=== PATIENT | male | born 1945 | race Caucasian/White ===

== ENCOUNTER 2023-07-18 13:59 | Outpatient (RCR) | payer MEDICARE, OTHER, SELFPAY | END 2023-07-18 23:59 | disposition home or self-care (01) | LOC: RPT 13:59 | PROVIDERS: ATTENDING PHYSICIAN Family Medicine | DX: R26.9 Unspecified abnormalities of gait and mobility (principal); Z73.6 Limitation of activities due to disability; R26.2 Difficulty in walking, not elsewhere classified | CPT/HCPCS: 97110; 97112; 97116; 97530 ==

== ENCOUNTER 2023-08-21 10:50 | Outpatient (RCR) | payer MEDICARE, OTHER, SELFPAY | END 2023-08-21 23:59 | disposition home or self-care (01) | LOC: RPT 10:50 | PROVIDERS: ATTENDING PHYSICIAN Family Medicine | DX: I89.0 Lymphedema, not elsewhere classified (principal); R26.9 Unspecified abnormalities of gait and mobility; Z73.6 Limitation of activities due to disability; R26.2 Difficulty in walking, not elsewhere classified | CPT/HCPCS: 97110; 97112; 97116; 97530 ==

== ENCOUNTER 2023-08-27 13:49 | Outpatient (RCR) | payer MEDICARE, OTHER, SELFPAY | END 2023-09-16 07:49 | disposition home health service (06) | LOC: RPT 13:49 | PROVIDERS: ATTENDING PHYSICIAN Family Medicine | DX: I89.0 Lymphedema, not elsewhere classified (principal); R26.9 Unspecified abnormalities of gait and mobility; R60.9 Edema, unspecified; Z73.6 Limitation of activities due to disability; R26.2 Difficulty in walking, not elsewhere classified | CPT/HCPCS: 97110; 97112; 97116; 97530 ==

== ENCOUNTER 2023-08-29 14:20 | Inpatient (IN) | payer MEDICARE, OTHER, SELFPAY ==
[2023-08-29] VITALS (19 sets, daily range): BP systolic 111–166; BP diastolic 50–87; PULSE 63–73; O2SAT 96; BMI 30.9
[2023-08-29 08:25] LABS: Urine Albumin Negative (Neg - Trace); Urine Bilirubin Negative (Negative); Urine Character Clear (Clear); Urine Color Yellow; Urine Glucose Negative (Negative); Urine Ketone Negative (Negative); Urine Leukocyte Negative (Negative); Urine Nitrite Negative (Negative); Urine Occult Blood Negative (Negative); Urine Specific Gravity 1.005 (<1.030); Urine Urobilinogen Negative (Neg - 1+)
[2023-08-29 09:13] LABS: Hematocrit 38.4 % (39.0-52.0); Hemoglobin 13.1 g/dL (13.0-18.0); Mean Corp Hgb Conc. 34.1 g/dL (33.0-37.0); Mean Corpuscular Hgb 31.2 pg (27.0-31.0); Mean Corpuscular Volume 91.4 fL (80.0-94.0); Mean Platelet Volume 9.7 fL (7.4-10.4); Platelet Count 198 10^3/uL (130-400); Red Cell Dist. Width 13.2 % (11.5-14.5); White Blood Cell Count 8.4 10^3/uL (4.8-10.8)
--- NOTE | 2023-08-29 09:14 | ED.GENMED ---
History of Present Illness
General
Chief Complaint: Chest Pain
Source: patient
Exam Limitations: none
Time Seen by Provider: 08/29/23 08:28
Nursing documentation reviewed up to this point in time: agreed with
Travel History
Have you had any contact with someone who has COVID-19?: No
Do you have any symptoms of coronavirus? Fever > 100 degrees, chills, cough, shortness of breath, sore throat, loss of taste or smell, muscle aches, or headache?: No
History of Present Illness
History of Present Illness:
Patient presents to ED secondary to sudden onset of left-sided chest pain, shortly after having breakfast this morning around 7 AM. Chest pain described as sharp, nonradiating, without any alleviating or exacerbating factors. However, chest pain
was associated with lightheadedness, which became far worse when he tried to stand up. Patient sat back down on the chair to prevent falling, which also alleviated lightheaded sensation. Sensation of dizziness recurred multiple times when he tried
to stand up. Patient does state that he has had lightheadedness in the past, but never this severe. Denies recent illness. Denies recent change medications or diet. Denies shortness of breath. Denies nausea vomiting. Denies diaphoresis.
Denies history of coronary artery disease.
Past History
Past History
ED Past Medical History: Psychiatric (ANXIETY), Other (GI bleed and Uropsepsis late 2015 at [facility]) and Other (BPH, hypertension, hyperlipidemia, GERD, peptic ulcer disease)
Social History
Tobacco: Non-smoker
Alcohol: Occasional
Personal:
Living: with family
Employment: Retired
Family History
Family History: Other (Alzheimer's)
Review of Systems
Review of Systems
Allergies reviewed?: Yes
All Other Systems: ROS reviewed and negative except as documented in HPI and ROS
Constitutional: Reports no symptoms
EENT: Reports no symptoms
Respiratory: Reports no symptoms; Denies trouble breathing
Cardiac: Reports chest pain; Denies diaphoresis, palpitations or syncope
ABD/GI: Reports no symptoms
: Reports no symptoms
Musculoskeletal: Reports no symptoms
Skin: Reports no symptoms
Neurological: Reports dizzy; Denies headache, weakness or numbness
Phy Exam
Physical Exam
Physical Exam:
Physical Exam
General: no apparent distress, not acutely ill. afebrile
Head: nc/at. eomi
Neck: supple. no meningeal signs.
Heart: s1/s2 regular rate and rhythm, no murmur. equal radial pulses.
Lungs: no acute respiratory distress. clear bilaterally
Abdomen: normal bowel sounds. not tender.
Neuro: alert and oriented. no focal neurological deficits
Skin: no rash
Psychiatric: well kept. interactive and cooperative
Extremities: no edema. no calf tenderness.
Scores
Heart Score for Chest Pain Patients
STEMI patient?: Not applicable
Course
Orders/Labs/Results
Orders:
Orders
08/29/23 07:57
EKG [Electrocardiogram (*1)] Urgent
Reason for Study: Chest Pain
EKG- Treatment ONCE
08/29/23 08:18
Urinalysis Reflex To Culture Urgent
Date Specimen was Collected: 08/29/23
Time Specimen was Collected: 08:13
08/29/23 08:41
Orthostatic VS- Treatment ONCE
CR Chest - 2 Views Urgent
Comment:
Reason For Exam: chest pain
08/29/23 09:01
Basic Metabolic Panel Urgent
Cardiovascular Evaluation Urgent
Complete Blood Count/No Diff Urgent
Ferritin Urgent
Comment: ADD ON
Folate Urgent
Comment: ADD ON
Glycohemoglobin (HgbA1c) Urgent
Lipase Urgent
Magnesium Urgent
TSH Reflex To Free T4 Urgent
Comment: ADD ON
Troponin I Urgent
Vitamin B12 Urgent
Comment: ADD ON
08/29/23 09:44
EKG- Treatment ONCE
08/29/23 10:58
Troponin I Urgent
08/29/23 11:00
Electrocardiogram (*1) Urgent
Reason for Study: Chest Pain
08/29/23 11:53
Physical Therapy Consult [Pt Eval And Treat] Urgent
Activity Level: As Tolerated
08/29/23 11:54
0.9% Sodium Chloride 250 ml [Nss] 250 ml IV BOLUS
08/29/23 14:01
Admit/Transfer Patient As Directed
Co-Sign Provider:
Level of Care: Inpatient admission
Assign to:: Telemetry
Physician / Group: Rebecca
Diagnosis: Ataxia
Reason for Telemetry: CVA/TIA
Date to Stop Telemetry: 09/01/23
Time to Stop Telemetry: 11:00
Reason for Hospitalization: Neurology consult, MRI, PT
Expected length of stay greater than two midnights?: Yes
ELOS- Estimated Length of Stay in days: 3
I certify the patient meets the requirements for IP care: Yes
08/29/23 14:03
Code Status As Directed
Resuscitation Status: Do not resuscitate
Reached after discussion with pt or family/Healthcare POA: Yes
DNR Bracelet Application ONCE
08/29/23 14:16
Orthostatic Vital Signs As Directed
Orthostatic VS Frequency: BID
Comment: please wait 3 minutes after each position change before checking bp
08/29/23 Dinner
Regular
At Your Request: Full Participation
09/01/23 11:00
DC Protocol for Telemetry ONCE
Abnormal Lab Results
08/29/23
09:01
RBC 4.20 L 10^6/uL
(4.70-6.10)
Hct 38.4 L %
(39.0-52.0)
MCH 31.2 H pg
(27.0-31.0)
BUN 23 H mg/dl
(9-20)
Magnesium 2.4 H mg/dl
(1.6-2.3)
08/29/23 09:01
08/29/23 09:01
Vital Signs
Initial and Last Documented VS:
Initial Vital Signs
Temp Pulse Resp BP Pulse Ox
98.9 F 78 20 148/72 98
08/29/23 08:08 08/29/23 08:08 08/29/23 08:08 08/29/23 08:08 08/29/23 08:08
Last Documented Vital Signs
Temp Pulse Resp BP Pulse Ox
98.9 F 64 14 129/73 98
08/29/23 08:08 08/29/23 16:45 08/29/23 16:45 08/29/23 16:00 08/29/23 08:08
MDM/Problems Addressed
MDM/Problems Addressed:
Pt remains chest pain during extended course observation, including repeat EKG and troponin. However, patient is significantly unstable when attempting to stand up, confirmed by nursing staff as well as physical therapy, raising possibility of
potential cerebellar involvement. As such, patient will be admitted for further evaluation and treatment.
*EKG
Interpreted by ED Provider?: Yes
EKG Intrepretation Date: 08/29/23
Heart Rate: 66
Rate: normal
Rhythm: sinus
[place]: normal axis
Interval: normal interval
QRS Pattern: normal QRS
*Critical Care Note
Total Time (30-74mins, 75-104mins- exclusive of procedures): Not Applicable
ED Attending Note
-
Portions of this chart may have been created with voice recognition software.� Occasional wrong word or��sound alike� substitutions may have occurred due to the inherent limitations of voice recognition software.
Discharge Plan
Departure
Patient Disposition: Admit
Date of Disposition: 08/29/23
Time of Disposition: 13:08
Admit to: Telemetry
Presentation/result/management discussed w/ accepting MD/DO: Hospitalist
Discharge Problem:
Dizziness
Interventions
Interventions:
*Risk Screen - Suicide Last Done: 08/29/23 09:31
*Neglect/Abuse Screening Last Done: 08/29/23 09:31
ED- Fall Risk Assessment Last Done: 08/29/23 09:21
*ED COVID-19 Vaccine History Last Done: 08/29/23 08:10
ED- Cardiac Assessment Last Done: 08/29/23 09:21
[2023-08-29 09:26] LABS: Blood Urea Nitrogen 23 mg/dl (9-20); Calcium 8.6 mg/dl (8.4-10.2); Carbon Dioxide 26 mmol/L (22-30); Chloride 106 mmol/L (98-107); Glucose 83 mg/dl (70-99); Lipase 43 U/L (23-300); Magnesium 2.4 mg/dl (1.6-2.3); Potassium 4.1 mmol/L (3.5-5.1); Sodium 136 mmol/L (135-145); eGFR > 60.00
[2023-08-29 09:38] LABS: Troponin I < 0.012 ng/ml
[2023-08-29 11:30] LABS: Troponin I < 0.012 ng/ml
[2023-08-29] MEDS: NSS 250 IV (12:00)
--- NOTE | 2023-08-29 14:07 | HPS.HSE ---
Family Physician
-
Family Physician: Dory Starr
Chief Complaint
-
Chest pain, unsteadiness with ambulation
History of Present Illness
77-year-old male here with complaints of left-sided brief episode of chest pain today at rest but subsequently became concerned when he started developing lightheadedness and unsteadiness with ambulation. Currently denies any further chest pain.
At the time, chest pain lasted only a few seconds and resolved. Denies shortness of breath.
Goes to physical therapy a few days a week and last session was 2 days ago. Apparently was doing well with ambulation with cane but today is quite unsteady when he stands and tries to walk. Unsteadiness started earlier this morning. Seen by
physical therapy in the emergency room and reportedly they were unable to get him to ambulate. Only able to stand and he felt too unsteady to take further steps.
Denies headache, nausea or vomiting. Denies vertigo.
Daughter at the bedside, she states no recent medication changes or dose changes.
Medical History
Past Medical History
Past Medical History: Reports Other
Additional Past Medical History:
Mild cognitive impairment
Parkinson's disease suspect
GERD
Anxiety disorder
Peptic ulcer disease
Essential hypertension
hyperlipidemia
BPH
Past Surgical History: Reports None
Social History
Tobacco: Non-smoker
Alcohol: None
Drug: None
Personal: Single
Living: Alone
Family History
Family History: Not pertinent
Allergies / Home Medications
Allergies reflects when Allergies were last updated in [facility].
Home Medications with original date entered in [facility]
Allergy/Medication List:
Allergies
Allergy/AdvReac Type Severity Reaction Status Date / Time
No Known Allergies Allergy Verified 08/29/23 08:12
Home Medications
acetaminophen 500 mg tablet (Tylenol Extra Strength) 500 mg PO DAILYPRN PRN mild pain 08/29/23
cholecalciferol (vitamin D3) 125 mcg (5,000 unit) tablet 125 mcg PO QPM 08/29/23
famotidine 20 mg tablet (Pepcid AC Maximum Strength) 20 mg PO DAILY PRN heartburn 08/29/23
finasteride 5 mg tablet 5 mg PO QPM 08/29/23
fluoxetine 40 mg capsule 40 mg PO QPM 08/29/23
furosemide 20 mg tablet 40 mg PO BID 08/29/23
ymyaqktkqqvy-xjlpmpkb-gaxzib tablet 1 tab PO DAILY 08/29/23
olanzapine 2.5 mg tablet 2.5 mg PO HS 08/29/23
omeprazole 40 mg capsule,delayed release 40 mg PO DAILY 08/29/23
propranolol 10 mg tablet 10 mg PO QPM 08/29/23
rosuvastatin 20 mg tablet 20 mg PO QPM 08/29/23
Review of Systems
-
History Source: Patient
A 12 point ROS was completed and negative except as noted: Yes
Physical Exam
Vital Signs
Vital Signs
Temp Pulse Resp BP Pulse Ox
98.9 F 69 17 150/82 98
08/29/23 08:08 08/29/23 13:30 08/29/23 13:30 08/29/23 13:00 08/29/23 08:08
Physical Exam
General: Well Developed, Well Nourished, No Apparent Distress and Comfortable
HEENT: NormoCephalic, Anicteric and Moist mucous membranes
Respiratory: Clear
Cardiac: S1/S2 and Regular Rhythm
GI: Soft, Non Tender and Non Distended
Genito-urinary: Deferred by me
Musculoskeletal: No Clubbing, No Cyanosis and No Edema
Skin: Warm and Dry
Neuro: AO x 3, Nonfocal/grossly intact and Other (Mild left-sided dysmetria on wgkwcx-mg-txhe testing. Trouble following verbal commands for testing for dysdiadochokinesia.)
Hematologic/Lymphatic: No Lymphadenopathy
Psych: Calm
Laboratory Results
-
08/29/23 09:01
08/29/23 09:01
Laboratory Results
Troponin I < 0.012 ng/ml 08/29/23 10:58
Lipase 43 U/L (23-300) 08/29/23 09:01
Impression/Plan
-
New onset gait ataxia -differential diagnosis includes cerebellar stroke versus movement disorder versus other etiology. Will admit to telemetry. Consult neurology. May need brain MRI, will defer to neurology. Continue PT/OT. Start low-dose
aspirin.
Chronic ambulatory dysfunction -uses a walking stick at baseline. No longer drives.
Essential hypertension -stable.
Hyperlipidemia -continue rosuvastatin.
GERD/peptic ulcer disease
Mild cognitive impairment -followed by neurology, Dr. Harp.
Chronic peripheral neuropathy -unclear etiology.
BPH -continue finasteride.
Anxiety disorder -continue home meds.
DNR -confirmed with patient and daughter.
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
[2023-08-29 16:52] LABS: HDL Cholesterol 47 mg/dl; LDL Cholesterol, Calculated 44 mg/dl; Total Cholesterol 120 mg/dl (50-199); Triglyceride 147 mg/dl (10-149); Very Low Density Lipoprotein 29 mg/dl (0-30)
[2023-08-29 17:32] LABS: TSH Reflex To Free T4 0.96 uIU/ml (0.47-4.68)
[2023-08-29 17:36] LABS: Ferritin 24.7 ng/ml (17.9-464.0)
[2023-08-29 18:08] LABS: Folate > 20.0 ng/ml (2.76-20)
[2023-08-29] MEDS: INDERAL 10 MG PO (19:44)
[2023-08-29] MEDS: LASIX 40 MG PO (19:44)
[2023-08-29] MEDS: PROSCAR 5 MG PO (19:44)
[2023-08-29] MEDS: PROZAC 40 MG PO (19:45)
[2023-08-29] MEDS: CRESTOR 20 MG PO (19:45)
--- NOTE | 2023-08-29 21:15 | PTCARENOTE ---
Pt arrived to room 415-02. Pt transferred from stretcher to bed. Pt AAOx3, VSS. Pt accompanied by daughter at bedside. Pt in no signs of acute distress. Pt oriented to room, call mayorga placed within reach.
[2023-08-29] MEDS: LOVENOX 40 MG SC (22:36)
[2023-08-29] MEDS: LOW STRENGTH ASPIRIN 81 MG PO (22:37)
[2023-08-29] MEDS: ZYPREXA 2.5 MG PO (22:37)
[2023-08-29] MEDS: VITAMIN D3 (cholecalciferol) 125 MCG PO (22:37)
[2023-08-30 01:15] LABS: Vitamin B12 410 pg/ml (239-931)
[2023-08-30 02:28] VITALS: BP 109/60
[2023-08-30 07:00] VITALS: BP 128/68
[2023-08-30] MEDS: THERAGRAN 1 TABLET PO (08:28)
[2023-08-30] MEDS: PROTONIX 40 MG PO (08:28)
[2023-08-30] MEDS: LOW STRENGTH ASPIRIN 81 MG PO (08:28)
[2023-08-30] MEDS: LASIX 40 MG PO ×2 (08:28→21:36)
[2023-08-30 08:45] LABS: Glycohemoglobin (HgbA1c) 6.3 % (4.0-5.6)
--- NOTE | 2023-08-30 09:06 | W.PN.HOSP.TC ---
Addendum entered and electronically signed by Aldair Fernandez DO 08/30/23 12:28:
Brain MRI normal.
Medically stable for discharge to SNF.
Case management aware.
Daughter updated on the phone.
Original Note:
Today's Communication/Plan
-
PT/OT
Brain MRI
Assessment / Plan
Assessment / Plan
Gen-AAOx3, NAD
HEENT-NC, AT, anicteric, clear oral mm
Neck-supple
CV-reg, no M, +S1/S2
Lungs-clear B/L
Abd-soft, NT, ND
Ext-no edema
Musculoskeletal-no cyanosis, clubbing
Skin-warm and dry
Neuro-grossly non-focal
Psych-calm, cooperative
New onset gait ataxia -differential diagnosis includes cerebellar stroke versus movement disorder versus other etiology.� Appreciate neurology input. Await brain MRI. Continue PT/OT.
Chronic ambulatory dysfunction -uses a walking stick at baseline.� No longer drives.
Essential hypertension -stable.
Hyperlipidemia -continue rosuvastatin.
GERD/peptic ulcer disease
Mild cognitive impairment -followed by neurology, Dr. Harp. Differential diagnosis includes Lewy body dementia.
Chronic peripheral neuropathy -unclear etiology.
BPH -continue finasteride.
Anxiety disorder -continue home meds.
DNR -confirmed with patient and daughter.
Dispo -anticipate discharge to SNF when medically stable.
Anticipated Discharge: Within 24 hours
Subjective/Interval History
-
Date of Service: August 30, 2023
Patient seen and examined. Eating breakfast. No complaints.
Objective Data
-
Vital Signs:
Vital Signs
Temp Pulse Resp BP Pulse Ox
98.0 F 57 18 128/68 96
08/30/23 07:00 08/30/23 07:00 08/30/23 07:00 08/30/23 07:00 08/30/23 07:00
I&O
08/29/23 08/30/23 08/31/23
06:59 06:59 06:59
Output Total 550 / 550
Balance -550 / -550
Review of Systems
-
History Source: Patient
All other systems: Reviewed and negative
--- NOTE | 2023-08-30 14:20 | W.PN.NEURO.1 ---
Today's Communication / Plan
-
-Can stop aspirin given no findings of chronic or acute stroke on the brain MRI and I do not feel this episode was a TIA
-Recheck orthostatic vital signs
-Okay to continue low-dose olanzapine which has been helpful for visual hallucinations
-Consideration for outpatient DaTscan and continued neurology follow-up given concern for a parkinsonian disorder
-Blood pressure checks at home I think would be helpful
-No further recommendations for inpatient neurologic workup
Will follow as needed call with questions and concerns
Neuro Assessment/Plan
Assessment
77-year-old male with a past medical history of hallucinations for which she is on olanzapine, peripheral neuropathy, BPH, hyperlipidemia, hyper presented to hospital because of sudden onset dizziness and balance problems.
MRI brain is negative for acute stroke and no chronic strokes seen
Neurologic examination does show a chronic peripheral neuropathy
Patient additionally has had some concerning findings of possible dream enactment behavior suggestive of REM behavior disorder (this is often a precursor to parkinsonian neurodegenerative disorders), anosmia, visual hallucinations, mild cognitive
issues suggestive of an atypical parkinsonian disorder such as Lewy body dementia, other possibilities would be cortical basal degeneration, doubtful of an idiopathic Parkinson's disease as does not have the typical signs of this.
He had had a couple days of diarrhea leading up to his presentation
Presentation is related to chronic neuropathy that can produce ataxia and imbalance and the diarrhea may have predisposed to this.
Additionally there is suspicion for a chronic neurodegenerative disease process that could affect balance as well.
Subjective/Objective
Subjective Data
Date of Service: August 30, 2023
No acute events, patient feeling pretty well
Objective Data
Vital Signs
Temp Pulse Resp BP Pulse Ox
98.0 F 57 18 128/68 96
08/30/23 07:00 08/30/23 07:00 08/30/23 07:00 08/30/23 07:00 08/30/23 07:00
Lab Results
08/29/23 09:01
08/29/23 09:01
Sodium 136 mmol/L (135-145) 08/29/23 09:
Potassium 4.1 mmol/L (3.5-5.1) 08/29/23 09:
BUN 23 mg/dl (9-20) H 08/29/23 09:
Glucose 83 mg/dl (70-99) 08/29/23 09:
Calcium 8.6 mg/dl (8.4-10.2) 08/29/23 09:
LDL Cholesterol, Calc 44 mg/dl 08/29/23 09:
Vitamin B12 410 pg/ml (239-931) 08/29/23 09:
Patient Allergies
No Known Allergies Allergy (Verified 08/29/23 08:12)
Review of Systems
-
History Source: Patient
All other systems: Reviewed and negative
Constitutional: No Symptoms
EENT: No Symptoms Reported
Respiratory: No Symptoms
Cardiac: No Symptoms
Abdomen/GI: No Symptoms
Genitourinary: No Symptoms
Musculoskeletal: No Symptoms
Skin: No Symptoms
Neuro: See existing Neuro Note
Endocrine: No Symptoms
Hematologic / Lymphatic: No Symptoms
Allergy / Immunology: No Symptoms
Physical Exam
-
General: Comfortable
Eyes: No Ptosis
HEENT: Normocephalic
Neck: No Bruits Bilaterally
Respiratory: No Dyspnea
Cardiac: Regular Rhythm
GI: Normal Bowel Sounds
Skin: Unremarkable
Extremities: No Clubbing
Psych: Unremarkable
Extended Neurological Exam
Attention Span & Concentration: Awake, Alert, Interactive and Other ( -Would continue to try and wean steroids down, would suggest 5 mg less every 4 weeks to a goal of 5 to 10 mg daily prednisone -Not seeing any further diagnostic testing would be
of use here in the hospital -Needs outpatient neurology follow-up and consideration for neuropsychological testing Will )
Memory: Able to Recall
Tremor: Other (Bilateral minimal resting tremor)
Speech: Negative Expressive Aphasia, Receptive Aphasia or Dysarthric
Cranial Nerve II: Left Eye: Pupillary Reactivity Unremarkable and Pupillary Size Unremarkable
Cranial Nerve II: Right Eye: Pupillary Reactivity Unremarkable and Pupillary Size Unremarkable
Cranial Nerves III, IV, : Extraocular Movement: Extraocular Movement Full in all Directions
Cranial Nerve VII: Facial Symmetry: Normal Facial Symmetry
Muscle Strength, Overall: Full Throughout
Muscle Bulk & Tone: Other (Mild cogwheel rigidity in the wrists more on the left)
Pronator Drift: No Drift in Upper Extremities
Deep Tendon Reflexes: Absent
Vibration Sensation: Reduced Moderately Distally
Touch Sensation: Pin Prick Reduced
Babinski Sign: Absent Bilaterally
Data Reviewed
-
MRI Head: Report Reviewed and Image Reviewed
Orthostatic Testing: Report Reviewed
Labs: Report Reviewed
[2023-08-30 14:49] VITALS: BP 126/78; BP 142/75; BP 91/58; PULSE 69; PULSE 78; PULSE 80
[2023-08-30 14:53] VITALS: BP 126/78
--- NOTE | 2023-08-30 14:56 | CM ---
Patient seen bedside with daughterCathryn, initial assessment completed. Patient resides independently in a single story home. Patient reports his daughter lives nearby. Patient reports he is current with [facility], uses a walking
stick outside, walker inside the home. Patient denies SNF history. Patient confirms PCP Dory Starr, pharmacy [facility] in [facility]. Daughter requesting referral to [facility] in [place], [place], along with local facilities. CM will
continue to follow for discharge planning needs.
Plan; SNF pending accepting facility.
--- NOTE | 2023-08-30 17:00 | PTCARENOTE ---
Pt placed on Medsitter for safety. Bed and chair alarm in place.
[2023-08-30] MEDS: PROZAC 40 MG PO (17:10)
[2023-08-30] MEDS: PROSCAR 5 MG PO (17:10)
[2023-08-30] MEDS: CRESTOR 20 MG PO (17:10)
[2023-08-30] MEDS: INDERAL 10 MG PO (17:10)
[2023-08-30] MEDS: VITAMIN D3 (cholecalciferol) 125 MCG PO (17:10)
[2023-08-30] MEDS: LOVENOX 40 MG SC (18:46)
[2023-08-30 19:00] VITALS: BP 165/92
[2023-08-30] MEDS: ZYPREXA 2.5 MG PO (21:37)
[2023-08-30 23:00] VITALS: BP 121/60
[2023-08-31] VITALS (7 sets, daily range): BP systolic 124–143; BP diastolic 66–98; PULSE 66; O2SAT 93
[2023-08-31] MEDS: LASIX 40 MG PO ×2 (08:20→21:49)
[2023-08-31] MEDS: PROTONIX 40 MG PO (08:21)
[2023-08-31] MEDS: THERAGRAN 1 TABLET PO (08:21)
--- NOTE | 2023-08-31 09:20 | W.PN.HOSP.TC ---
Addendum entered and electronically signed by Aldair Fernandez DO 08/31/23 13:09:
Spoke with daughter at the bedside, she is concerned about his increased confusion. Suspect hospital associated delirium given his underlying cognitive impairment and new environment. I reassured her that this usually reverses on its own once
patients are discharged. However, his cognitive dysfunction unfortunately will not improve and may worsen over time.
Otherwise I provided an update to patient's daughter, all questions answered.
Original Note:
Today's Communication/Plan
-
Continue PT/OT
Compression stockings
Discharge planning
Assessment / Plan
Assessment / Plan
Gen-AAOx3, NAD
HEENT-NC, AT, anicteric, clear oral mm
Neck-supple
CV-reg, no M, +S1/S2
Lungs-clear B/L
Abd-soft, NT, ND
Ext-no edema
Musculoskeletal-no cyanosis, clubbing
Skin-warm and dry
Neuro-grossly non-focal
Psych-calm, cooperative
New onset gait ataxia -no evidence of stroke on brain MRI. Ataxia likely multifactorial in nature including possible parkinsonism. Orthostatic hypotension contributing to symptoms. Compression stockings ordered. Continue PT/OT. Outpatient
neurology follow-up.
Chronic ambulatory dysfunction -uses a walking stick at baseline.� No longer drives.
Essential hypertension -stable.
Hyperlipidemia -continue rosuvastatin.
GERD/peptic ulcer disease
Mild cognitive impairment -followed by neurology, Dr. Harp. Differential diagnosis includes Lewy body dementia.
Chronic peripheral neuropathy -unclear etiology.
BPH -continue finasteride.
Anxiety disorder -continue home meds.
DNR -confirmed with patient and daughter.
Dispo -medically stable for discharge to SNF. Case management aware.
Anticipated Discharge: 24 - 48 hours
Subjective/Interval History
-
Date of Service: August 31, 2023
Patient seen and examined. No complaints currently.
Objective Data
-
Vital Signs:
Vital Signs
Temp Pulse Resp BP Pulse Ox
97.9 F 64 18 124/73 97
08/31/23 08:01 08/31/23 08:20 08/31/23 08:01 08/31/23 08:20 08/31/23 08:01
I&O
08/30/23 08/31/23 09/01/23
06:59 06:59 07:59
Intake Total 240 / 240
Output Total 550 / 550 200 / 200
Balance -550 / -550 40 / 40
Review of Systems
-
History Source: Patient
All other systems: Reviewed and negative
[2023-08-31] MEDS: INDERAL 10 MG PO (17:21)
[2023-08-31] MEDS: CRESTOR 20 MG PO (17:21)
[2023-08-31] MEDS: PROSCAR 5 MG PO (17:21)
[2023-08-31] MEDS: VITAMIN D3 (cholecalciferol) 125 MCG PO (17:22)
[2023-08-31] MEDS: LOVENOX 40 MG SC (17:22)
[2023-08-31] MEDS: PROZAC 40 MG PO (17:26)
[2023-08-31] MEDS: ZYPREXA 2.5 MG PO (21:53)
[2023-09-01] VITALS (9 sets, daily range): BP systolic 126–163; BP diastolic 65–85; PULSE 61–65; O2SAT 95–96; BMI 30.8
[2023-09-01] MEDS: THERAGRAN 1 TABLET PO (08:01)
[2023-09-01] MEDS: LASIX 40 MG PO ×2 (08:01→22:16)
[2023-09-01] MEDS: PROTONIX 40 MG PO (08:01)
--- NOTE | 2023-09-01 09:16 | W.PN.HOSP.TC ---
Addendum entered and electronically signed by Aldair Fernandez DO 09/01/23 12:10:
Daughter Cathryn updated on the phone. All questions answered.
Original Note:
Today's Communication/Plan
-
Discharge planning
Assessment / Plan
Assessment / Plan
Gen-AAOx3, NAD
HEENT-NC, AT, anicteric, clear oral mm
Neck-supple
CV-reg, no M, +S1/S2
Lungs-clear B/L
Abd-soft, NT, ND
Ext-no edema
Musculoskeletal-no cyanosis, clubbing
Skin-warm and dry
Neuro-grossly non-focal
Psych-calm, cooperative
Hospital-acquired delirium -due to underlying cognitive dysfunction, new environment. Continue supportive care. Discussed with daughter.
New onset gait ataxia -no evidence of stroke on brain MRI. Ataxia likely multifactorial in nature including possible parkinsonism. Orthostatic hypotension contributing to symptoms. Compression stockings ordered. Continue PT/OT. Outpatient
neurology follow-up.
Chronic ambulatory dysfunction -uses a walking stick at baseline.� No longer drives.
Essential hypertension -stable.
Hyperlipidemia -continue rosuvastatin.
GERD/peptic ulcer disease
Mild cognitive impairment -followed by neurology, Dr. Harp. Differential diagnosis includes Lewy body dementia.
Chronic peripheral neuropathy -unclear etiology.
BPH -continue finasteride.
Anxiety disorder -continue home meds.
DNR -confirmed with patient and daughter.
Dispo -medically stable for discharge to SNF. Case management aware.
Anticipated Discharge: Within 24 hours
Subjective/Interval History
-
Date of Service: September 01, 2023
Patient seen and examined. Eating breakfast. No complaints.
Objective Data
-
Vital Signs:
Vital Signs
Temp Pulse Resp BP Pulse Ox
97.5 F 55 18 156/74 95
09/01/23 07:16 09/01/23 07:16 09/01/23 07:16 09/01/23 07:16 09/01/23 07:16
I&O
08/31/23 09/01/23 09/02/23
05:59 06:59 06:59
Intake Total
Output Total
Balance
Review of Systems
-
History Source: Patient
All other systems: Reviewed and negative
--- NOTE | 2023-09-01 13:58 | CM ---
SW spoke with dtr.
Pt was accepted to [facility], [facility], and [facility].
Dtr notes that [facility] would be their first choice.
f/u with facility on Saturday. CM did explain need for dc if medically stable and beds available.
Continue to follow for dc planning to SNF.
--- NOTE | 2023-09-01 14:02 | CM ---
SW spoke with dtr.
Pt was accepted to [facility], [facility], [facility], and [facility]. [facility] also interested if he is off alarms and med sitter >24hrs. [facility] will likely have bed on Saturday.
Dtr notes that [facility] would be their first choice.
f/u with facility on Saturday. CM did explain need for dc if medically stable and beds available.
Continue to follow for dc planning to SNF.
[2023-09-01] MEDS: CRESTOR 20 MG PO (17:36)
[2023-09-01] MEDS: PROSCAR 5 MG PO (17:36)
[2023-09-01] MEDS: LOVENOX 40 MG SC (17:36)
[2023-09-01] MEDS: INDERAL 10 MG PO (17:36)
[2023-09-01] MEDS: VITAMIN D3 (cholecalciferol) 125 MCG PO (17:36)
[2023-09-01] MEDS: PROZAC 40 MG PO (17:39)
[2023-09-01] MEDS: ZYPREXA 2.5 MG PO (22:16)
[2023-09-02] VITALS (8 sets, daily range): BP systolic 124–171; BP diastolic 64–100; PULSE 55–98; O2SAT 97; BMI 30.4
[2023-09-02] MEDS: THERAGRAN 1 TABLET PO (09:09)
[2023-09-02] MEDS: LASIX 40 MG PO ×2 (09:09→21:02)
[2023-09-02] MEDS: PROTONIX 40 MG PO (09:09)
--- NOTE | 2023-09-02 11:46 | CM ---
CM left two voicemails for [facility] in [facility] to confirm bed availability as this is families top SNF choice. CM awaiting return call, will follow for discharge planning needs.
Plan; SNF pending accepting facility, awaiting call from [facility].
--- NOTE | 2023-09-02 12:29 | PTCARENOTE ---
[facility]
--- NOTE | 2023-09-02 17:01 | W.PN.HOSP.TC ---
Today's Communication/Plan
-
Neurologically stable as above.
Pending discharge to long-term facility.
Assessment / Plan
Assessment / Plan
Impression/plan
Hospital-acquired delirium -due to underlying cognitive dysfunction, new environment. Continue supportive care. Discussed with daughter.
New onset gait ataxia -no evidence of stroke on brain MRI. Ataxia likely multifactorial in nature including possible parkinsonism. Orthostatic hypotension contributing to symptoms. Compression stockings ordered. Continue PT/OT. Outpatient
neurology follow-up.
Chronic ambulatory dysfunction -uses a walking stick at baseline.� No longer drives.
Essential hypertension -stable.
Hyperlipidemia -continue rosuvastatin.
GERD/peptic ulcer disease
Mild cognitive impairment -followed by neurology, Dr. Harp. Differential diagnosis includes Lewy body dementia.
Chronic peripheral neuropathy -unclear etiology.
BPH -continue finasteride.
Anxiety disorder -continue home meds.
DNR -confirmed with patient and daughter.
Dispo -medically stable for discharge to SNF. Case management aware.
Anticipated Discharge: Within 24 hours
Subjective/Interval History
-
Date of Service: September 02, 2023
Objective Data
-
Vital Signs:
Vital Signs
Temp Pulse Resp BP Pulse Ox
97.8 F 67 16 141/98 97
09/02/23 15:15 09/02/23 15:15 09/02/23 15:15 09/02/23 15:15 09/02/23 15:15
I&O
09/01/23 09/02/23 09/03/23
06:59 06:59 06:59
Intake Total 1100 / 1100
Output Total 1150 / 1150
Balance -50 / -50
Physical Exam
-
General: Well Developed and No Apparent Distress
HEENT: Normocephalic, Atraumatic and Moist Mucous Membranes
Respiratory: Clear to Auscultation
Cardiac: Regular Rhythm and S1/S2; Negative Murmur, Rub or Gallop
GI: Soft, Nontender, Nondistended and Normal Bowel Sounds; Negative Organomegaly
Rectal: Deferred by Provider
Musculoskeletal: No Clubbing, No Cyanosis and No Edema
Skin: Negative Rash
Neuro: Nonfocal/Grossly Intact
[2023-09-02] MEDS: INDERAL 10 MG PO (17:53)
[2023-09-02] MEDS: CRESTOR 20 MG PO (17:53)
[2023-09-02] MEDS: LOVENOX 40 MG SC (17:53)
[2023-09-02] MEDS: PROSCAR 5 MG PO (17:54)
[2023-09-02] MEDS: PROZAC 40 MG PO (17:54)
[2023-09-02] MEDS: VITAMIN D3 (cholecalciferol) 125 MCG PO (17:54)
[2023-09-02] MEDS: ZYPREXA 2.5 MG PO (21:02)
[2023-09-03 03:20] VITALS: BP 122/70
[2023-09-03 06:00] VITALS: BMI 30.3
[2023-09-03 07:00] VITALS: BP 155/87
[2023-09-03] MEDS: LASIX 40 MG PO (10:00)
[2023-09-03] MEDS: THERAGRAN 1 TABLET PO (10:00)
[2023-09-03] MEDS: PROTONIX 40 MG PO (10:00)
--- NOTE | 2023-09-03 10:28 | W.DS.TRANS ---
DC Summary - [employer]cast [employer]
-
Discharge Instructions:
Discharge Diagnosis/Procedures Gait dysfunction
Ongoing work up for Parkinson's disease with
cognitive dysfunction
Diet Regular
Instructions:
Stand-Alone Forms:
Changes to Home Medications: No
Discharge Medications:
DC Medications w/original date entered in [facility] [employer]
acetaminophen 500 mg tablet (Tylenol Extra Strength) 500 mg PO DAILYPRN PRN mild pain 08/29/23
cholecalciferol (vitamin D3) 125 mcg (5,000 unit) tablet 125 mcg PO QPM Supplement 08/29/23
finasteride 5 mg tablet 5 mg PO QPM prostate 08/29/23
fluoxetine 40 mg capsule 40 mg PO QPM Mental Health 08/29/23
furosemide 20 mg tablet 40 mg PO BID Fluid Retention/Swelling 08/29/23
sczzeefaifgq-zexkelhz-klcqsc tablet 1 tab PO DAILY Supplement 08/29/23
olanzapine 2.5 mg tablet 2.5 mg PO HS Neurological Condition 08/29/23
omeprazole 40 mg capsule,delayed release 40 mg PO DAILY Gastrointestinal Issue 08/29/23
propranolol 10 mg tablet 10 mg PO QPM Blood Pressure 08/29/23
rosuvastatin 20 mg tablet 20 mg PO QPM High Cholesterol 08/29/23
Home Medication Changes
Pending Results: No
[2023-09-03 11:01] VITALS: BP 140/90
[2023-09-03 11:22] LABS: Glucose - Point of Care 173 mg/dl (70-99)
--- NOTE | 2023-09-03 12:42 | W.DS.TRANS ---
DC Summary - [employer]
-
Discharge Instructions:
Discharge Diagnosis/Procedures Gait dysfunction
Ongoing work up for Parkinson's disease with
cognitive dysfunction
Diet Regular
Instructions:
Stand-Alone Forms:
Changes to Home Medications: No
Discharge Medications:
DC Medications w/original date entered in [employer]
acetaminophen 500 mg tablet (Tylenol Extra Strength) 500 mg PO DAILYPRN PRN mild pain 08/29/23
cholecalciferol (vitamin D3) 125 mcg (5,000 unit) tablet 125 mcg PO QPM Supplement 08/29/23
finasteride 5 mg tablet 5 mg PO QPM prostate 08/29/23
fluoxetine 40 mg capsule 40 mg PO QPM Mental Health 08/29/23
furosemide 20 mg tablet 40 mg PO BID Fluid Retention/Swelling 08/29/23
oqohzpjvlqvh-ktplmxgo-sfveph tablet 1 tab PO DAILY Supplement 08/29/23
olanzapine 2.5 mg tablet 2.5 mg PO HS Neurological Condition 08/29/23
omeprazole 40 mg capsule,delayed release 40 mg PO DAILY Gastrointestinal Issue 08/29/23
propranolol 10 mg tablet 10 mg PO QPM Blood Pressure 08/29/23
rosuvastatin 20 mg tablet 20 mg PO QPM High Cholesterol 08/29/23
Home Medication Changes
Pending Results: No
--- NOTE | 2023-09-03 13:16 | CM ---
CM spoke with Nessa from [facility], confirmed can accept patient today. CM spoke with patients daughter, Cathryn, would prefer to transport patient herself, ambulance transport cancelled. CM reviewed IMM with patient and daughter, signed, placed in
patients chart. CM will continue to follow for discharge planning needs.
Plan; [place], [place] SNF, daughter to transport around 1:00 p.m.
Report: [phone]
--- NOTE | 2023-09-03 13:24 | PTCARENOTE ---
Pt DC'd to [facility]. Daughter to transport. Pt given DC instructions and verbalized understanding.
== END 2023-09-03 13:19 | DRG 57 ==
LOC: 4 WEST ACU 14:20
PROVIDERS: Emergency Medicine; ADMITTING PHYSICIAN Hospitalist; ATTENDING PHYSICIAN Internal Medicine; CONSULT PHYSICIAN Student in an Organized Health Care Education/Training Program; EMERGENCY PHYSICIAN Emergency Medicine; FAMILY PHYSICIAN Family Medicine
DX: G20.A1 Parkinson's disease without dyskinesia, without mention of fluctuations (principal); F02.818 Dementia in other diseases classified elsewhere, unspecified severity, with other behavioral disturbance; F02.84 Dementia in other diseases classified elsewhere, unspecified severity, with anxiety; Z66 Do not resuscitate; I10 Essential (primary) hypertension; E78.5 Hyperlipidemia, unspecified; K21.9 Gastro-esophageal reflux disease without esophagitis; K27.9 Peptic ulcer, site unspecified, unspecified as acute or chronic, without hemorrhage or perforation; G62.9 Polyneuropathy, unspecified; N40.1 Benign prostatic hyperplasia with lower urinary tract symptoms; G47.00 Insomnia, unspecified; R27.0 Ataxia, unspecified
CPT/HCPCS: 70551; 71046; 80048; 80061; 81003; 82607; 82728; 82746; 82962; 83036; 83690; 83735; 84443; 84484; 85027; 93005; 96360; 97116; 97167; 97530; 97535; 99285

== ENCOUNTER → 2023-10-24 09:26 | Outpatient (REF) | payer MEDICARE, OTHER, SELFPAY | LOC: RCS 09:26 | PROVIDERS: ATTENDING PHYSICIAN Internal Medicine Cardiovascular Disease; FAMILY PHYSICIAN Family Medicine | DX: I77.810 Thoracic aortic ectasia (principal) | CPT/HCPCS: 93306 ==

== ENCOUNTER 2023-10-26 23:48 | Inpatient (IN) | payer MEDICARE, OTHER, SELFPAY ==
[2023-10-26 20:24] VITALS: BP 92/67; BMI 29.7
[2023-10-26 21:11] LABS: % Basophils 0.3 % (0-2); % Eosinophils 2.2 % (0-6); % Immature Granulocytes 0.3 % (0-0.5); % Lymphocytes 9.7 % (20.5-51.1); % Monocytes 6.7 % (1.7-9.3); % Neutrophils 80.8 % (42.2-75.2); Absolute Eosinophils 0.3 10^3/uL (0-0.7); Absolute Immature Granulocytes 0.1 10^3/uL (0-0.05); Absolute Lymphocytes 1.4 10^3/uL (1.2-3.4); Absolute Neutrophils 11.8 10^3/uL (1.4-6.5); Hematocrit 42.4 % (39.0-52.0); Hemoglobin 14.2 g/dL (13.0-18.0); Mean Corp Hgb Conc. 33.5 g/dL (33.0-37.0); Mean Corpuscular Hgb 30.9 pg (27.0-31.0); Mean Corpuscular Volume 92.4 fL (80.0-94.0); Mean Platelet Volume 9.7 fL (7.4-10.4); Nucleated Red Blood Cells % 0 % (-); Platelet Count 245 10^3/uL (130-400); Red Blood Cell Count 4.59 10^6/uL (4.70-6.10); Red Cell Dist. Width 13.2 % (11.5-14.5); White Blood Cell Count 14.6 10^3/uL (4.8-10.8)
[2023-10-26 21:18] LABS: Lactic Acid 2.8 mmol/L (0.7-2.0)
[2023-10-26 21:21] VITALS: BP 157/78
[2023-10-26 21:23] LABS: Urine Albumin 1+ (Neg - Trace); Urine Bilirubin Negative (Negative); Urine Character Clear (Clear); Urine Color Yellow; Urine Glucose Negative (Negative); Urine Ketone Trace (Negative); Urine Leukocyte Trace (Negative); Urine Nitrite Positive (Negative); Urine Occult Blood 4+ (Negative); Urine Specific Gravity 1.015 (<1.030); Urine Urobilinogen Negative (Neg - 1+)
[2023-10-26 21:25] LABS: ALT (SGPT) 21 U/L (0-50); AST (SGOT) 22 U/L (17-59); Albumin 4.3 g/dl (3.5-5.0); Alkaline Phosphatase 96 U/L (38-126); Blood Urea Nitrogen 24 mg/dl (9-20); Calcium 9.2 mg/dl (8.4-10.2); Carbon Dioxide 21 mmol/L (22-30); Chloride 102 mmol/L (98-107); Estimated Creatinine Clearance 47 ml/min; Glucose 107 mg/dl (70-99); Potassium 4.3 mmol/L (3.5-5.1); Sodium 136 mmol/L (135-145); Total Bilirubin 0.8 mg/dl (0.2-1.3); Total Protein 7.2 g/dl (6.3-8.2); eGFR 46.77
[2023-10-26 21:30] VITALS: BP 127/72
[2023-10-26 21:32] LABS: Urine Red Blood Cell 26-30 /HPF (0-2)
[2023-10-26 21:33] LABS: Urine Bacteria Moderate (Negative)
[2023-10-26 22:00] VITALS: BP 106/53
--- NOTE | 2023-10-26 22:29 | ED.GENMED ---
History of Present Illness
General
Chief Complaint: Male Genito-Urinary Symptoms
Source: patient
Exam Limitations: none
Time Seen by Provider: 10/26/23 21:40
Nursing documentation reviewed up to this point in time: agreed with
Travel History
Have you had any contact with someone who has COVID-19?: No
Do you have any symptoms of coronavirus? Fever > 100 degrees, chills, cough, shortness of breath, sore throat, loss of taste or smell, muscle aches, or headache?: No
History of Present Illness
History of Present Illness:
78-year-old male presents to the ER for evaluation. Daughter at bedside reports patient has a history of mild to moderate cognitive impairment however she noticed today he was more confused than normal and more fatigued than normal. He was
complaining of feeling tired and dizzy. They recently increased his memantine for his cognitive impairment on Saturday. She does report however that she smelled his urine and it was very foul smell. She had a dipstick at home which showed UTI.
He does have a history of UTI and stopped in the past.
She reports he does have a history of hallucinations was also hallucinating as well. Called her at home and told her to come get him because he was at the park when the day he was home. No fever
Past History
Past History
ED Past Medical History: Psychiatric (ANXIETY), Other (GI bleed and Uropsepsis late 2015 at [facility]) and Other (BPH, hypertension, hyperlipidemia, GERD, peptic ulcer disease)
Social History
Tobacco: Non-smoker
Alcohol: Occasional
Personal:
Living: with family
Employment: Retired
Family History
Family History: Other (Alzheimer's)
Review of Systems
Review of Systems
Allergies reviewed?: Yes
All Other Systems: ROS reviewed and negative except as documented in HPI and ROS
Constitutional: Reports fatigue; Denies fever or chills
Respiratory: Reports no symptoms
Cardiac: Reports no symptoms
ABD/GI: Denies abdominal pain, nausea or vomiting
: Reports other ('foul smelling urine ' as per daughter )
Musculoskeletal: Reports no symptoms
Skin: Reports no symptoms
Neurological: Reports other (increased confusion )
Hematologic/Lymphatic: Reports no symptoms
Psychiatric: Reports no symptoms
Phy Exam
General Physical Exam
General Presentation: no apparent distress
General age: appears stated age
General Skin: warm and dry
General Habitus: elderly
General Hydration: dry mucous membranes
Cardiovascular Exam
Cardiovascular Exam: regular rate/rhythm and normal peripheral pulses
Pulmonary Exam
Pulmonary Exam: lungs clear and no respiratory distress
Gastrointestinal Exam
Gastrointestinal Exam: non tender and soft
Neurological Exam
Neurological Exam: alert, no motor deficits and no sensory deficits
Musculoskeletal Exam
Musculoskeletal Exam: full ROM
Skin Exam
Skin Exam: normal color and warm/dry
Psychiatric Exam
Psychiatric Exam: normal mood/affect
Course
Orders/Labs/Results
Orders:
Orders
10/26/23 20:29
Electrocardiogram (*1) Urgent
Reason for Study: Other
Other Reason for Exam: Possible Sepsis
10/26/23 20:30
EKG- Treatment ONCE
10/26/23 20:44
Complete Blood Count/With Diff Urgent
Comprehensive Metabolic Panel Urgent
Lactic Acid Stat
Urinalysis Reflex To Culture Urgent
Date Specimen was Collected: 10/26/23
Time Specimen was Collected: 20:30
Urine Microscopic Reflex Cult Urgent
Blood Culture Stat
JORGE Source: Blood/Venous
Specimen Description:
Urine Culture Urgent
JORGE Source: U
Specimen Description:
Date Specimen was Collected: 10/26/23
Time Specimen was Collected: 20:30
10/26/23 21:46
Blood Culture Stat
JORGE Source: Blood/Venous
Specimen Description:
Date Specimen was Collected: 10/26/23
Time Specimen was Collected: 21:45
Abnormal Lab Results
10/26/23
20:44
WBC 14.6 H 10^3/uL
(4.8-10.8)
RBC 4.59 L 10^6/uL
(4.70-6.10)
Abs Immat Gran (auto) 0.1 H 10^3/uL
(0-0.05)
Absolute Neuts (auto) 11.8 H 10^3/uL
(1.4-6.5)
Absolute Monos (auto) 1.0 H 10^3/uL
(0.1-0.6)
Neutrophils % 80.8 H %
(42.2-75.2)
Lymphocytes % 9.7 L %
(20.5-51.1)
Carbon Dioxide 21 L mmol/L
(22-30)
BUN 24 H mg/dl
(9-20)
Creatinine 1.5 H mg/dL
(0.7-1.3)
Glucose 107 H mg/dl
(70-99)
Lactic Acid 2.8 H mmol/L
(0.7-2.0)
Urine Ketones Trace A
(Negative)
Ur Occult Blood Reflex 4+ A
(Negative)
Urine Nitrite (Reflex) Positive A
(Negative)
Leukocyte Esterase Rfl Trace A
(Negative)
Urine RBC 26-30 A /HPF
(0-2)
Urine Bacteria (Reflex) Moderate A
(Negative)
Urine Albumin (Reflex) 1+ A
(Neg - Trace)
10/26/23 20:44
10/26/23 20:44
Vital Signs
Initial and Last Documented VS:
Initial Vital Signs
Temp Pulse Resp BP Pulse Ox
98.6 F 54 18 92/67 94
10/26/23 20:24 10/26/23 20:24 10/26/23 20:24 10/26/23 20:24 10/26/23 20:24
Last Documented Vital Signs
Temp Pulse Resp BP Pulse Ox
98.6 F 54 18 92/67 94
10/26/23 20:24 10/26/23 20:24 10/26/23 20:24 10/26/23 20:24 10/26/23 20:24
Policy Writer Typist consulted with Physician
Policy Writer Typist consulted with physician?: Yes
Name of Physician Consulted: Kurtis
MDM/Problems Addressed
MDM/Problems Addressed:
Patient is an 78-year-old male with mild to moderate cognitive impairment with cardiomegaly hypertension hyperlipidemia brought by EMS. Daughter reports patient lives alone but has care at home and today she notes that he was more confused than
normal more tired he was complaining of feeling dizzy. He does have a history of hallucinations on his listening today as well. His memory medication memantine was recently increased however she noticed that he had very foul-smelling urine and a
urine dipstick at home which is positive .
patient has not had a fever is afebrile here however white count is elevated 14.6 with an elevated he is not tachycardic her blood pressure is on the lower side. He has elevated renal function of 24 and 1.5. Urine shows 26-30 RBCs only 3-5 whites
but there is nitrates.
Daughter reports the patient had UTI with sepsis about 7 years ago.
Case reviewed with ED physician. Patient is not tachycardic blood pressure on the low aspect however patient does have a history of cardiomegaly will give 2 L of fluid
Chronic conditions affecting care:
Mild swelling of coming impairment history cardiomegaly
*Critical Care Note
Total Time (30-74mins, 75-104mins- exclusive of procedures): Not Applicable
ED Attending Note
-
Portions of this chart may have been created with voice recognition software.� Occasional wrong word or��sound alike� substitutions may have occurred due to the inherent limitations of voice recognition software.
Discharge Plan
Departure
Patient Disposition: Admit
Date of Disposition: 10/26/23
Time of Disposition: 22:51
Admit to: Med/Surg
Admit to doctor: Boyd
Presentation/result/management discussed w/ accepting MD/DO: Hospitalist
Patient with high blood pressure during this ER visit?: No
Condition: Fair
Covid-19: Not Applicable
Discharge Problem:
Acute UTI, Altered mental status, Acute kidney insufficiency
Prescriptions:
No Action
fluoxetine 40 mg Capsule
40 mg PO QPM
omeprazole 40 mg Capsule,Delayed Release(Dr/Ec)
40 mg PO DAILY
acetaminophen [Tylenol Extra Strength] 500 mg Tablet
500 mg PO DAILYPRN PRN (Reason: mild pain)
propranolol 10 mg Tablet
10 mg PO QPM
furosemide 20 mg Tablet
40 mg PO BID
finasteride 5 mg Tablet
5 mg PO QPM
njglebpvuyaq-phemozxk-wpnmwv Tablet
1 tab PO DAILY
rosuvastatin 20 mg Tablet
20 mg PO QPM
cholecalciferol (vitamin D3) 125 mcg (5,000 unit) Tablet
125 mcg PO QPM
potassium chloride 10 mEq Tablet Extended Release
20 meq PO DAILY
memantine 5 mg Tablet
5 mg PO DAILY
Referrals:
Dory Starr DO [Family Provider] -
Interventions
Interventions:
*Risk Screen - Suicide Last Done: 10/26/23 20:24
*General Assessment Last Done: 10/26/23 21:29
*Neglect/Abuse Screening Last Done: 10/26/23 20:24
ED- Fall Risk Assessment Last Done: 10/26/23 20:24
*ED COVID-19 Vaccine History Last Done: 10/26/23 21:29
ED-Male Genitourinary Assessment Last Done: 10/26/23 21:53
Discharge Date and Time
Print Language: MONEGASQUE
[2023-10-26 22:30] VITALS: BP 106/54
[2023-10-26 23:02] VITALS: BP 122/68
[2023-10-26] MEDS: ROCEPHIN 1000 MG IV (23:03)
[2023-10-26] MEDS: NSS 2000 IV (23:03)
--- NOTE | 2023-10-26 23:55 | HPS.HSE ---
Family Physician
-
Family Physician: Dory Starr
Chief Complaint
-
Increased weakness / confusion
History of Present Illness
Patient is an 78y M with PMH significant for dementia, hypertension and BPH who presents to ED for evaluation of increased weakness and confusion per family. History obtained primarily from patient's daughter at the bedside. Daughter states
that patient appeared to be more confused today, weak / less steady on his feet with increased complaints of dizziness (which is a chronic issue for him). He had decreased appetite and was noted to have decreased urine output throughout the day.
When his daughter changed his brief this afternoon she found it particularly malodorous. She used a home test test strip which suggested UTI.
Patient at the time was too week to stand / ambulate, so 911 was called and patient was brought to the ED by EMS for further evaluation.
Patient has reportedly been doing fairly well of late.
His dose of Namenda was increased on Saturday to BID from daily. He was previously on Zyprexa but this was discontinued about 3 weeks ago - apparently with significant improvement in patient's rigidity. No other recent med changes.
Daughter also notes that the patient has had more hallucinations over the past day or two. He has history of these (and was started on Zyprexa for this reason) but has not had them in some time.
Patient also complained of low back pain and / or L hip pain in the past few days. Daughter notes that he rarely complains of pain. No known injury, fall, etc.
He had a single episode of bowel incontinence / diarrhea a few days ago when daughter found him with loose stool in his brief. Patient had been unaware that he went. No additional episodes since that time.
Medical History
Past Medical History
Past Medical History: Reports Other
Additional Past Medical History:
Mild cognitive impairment
Parkinson's disease suspect
GERD
Anxiety disorder
Peptic ulcer disease
Essential hypertension
Hyperlipidemia
BPH
Past Surgical History: Reports None
Social History
Tobacco: Non-smoker
Alcohol: None
Drug: None
Family History
Family History: Not pertinent
Allergies / Home Medications
Allergies reflects when Allergies were last updated in [address].
Home Medications with original date entered in [address]
Allergy/Medication List:
Allergies
Allergy/AdvReac Type Severity Reaction Status Date / Time
No Known Allergies Allergy Verified 10/26/23 20:29
Home Medications
acetaminophen 500 mg tablet (Tylenol Extra Strength) 500 mg PO DAILYPRN PRN mild pain 08/29/23
cholecalciferol (vitamin D3) 125 mcg (5,000 unit) tablet 125 mcg PO QPM Supplement 08/29/23
finasteride 5 mg tablet 5 mg PO QPM prostate 08/29/23
fluoxetine 40 mg capsule 40 mg PO QPM Mental Health 08/29/23
furosemide 20 mg tablet 40 mg PO BID Fluid Retention/Swelling 08/29/23
wvmlhdymwsfe-kdfsxdos-gpeauc tablet 1 tab PO DAILY Supplement 08/29/23
omeprazole 40 mg capsule,delayed release 40 mg PO DAILY Gastrointestinal Issue 08/29/23
propranolol 10 mg tablet 10 mg PO QPM Blood Pressure 08/29/23
rosuvastatin 20 mg tablet 20 mg PO QPM High Cholesterol 08/29/23
memantine 5 mg tablet 5 mg PO BID 10/26/23
potassium chloride 10 mEq tablet,extended release 20 meq PO DAILY 10/26/23
Review of Systems
-
History Source: Patient and Family
A 12 point ROS was completed and negative except as noted: Yes
Constitutional: Reports Fatigue; Denies Fever or Chills
EENT: Denies Sore Throat
Respiratory: Denies Cough or Trouble Breathing
Cardiac: Denies Chest Pain or Palpitations
Abdomen/GI: Reports Diarrhea; Denies Abdominal Pain, Nausea, Vomiting, Bloody Stools or Black Stools
: Reports Flank Pain and Incontinence; Denies Dysuria
Musculoskeletal: Reports Other (Low back / L hip pain.)
Neurological: Reports Dizzy and Weakness; Denies Headache
Psych: Reports Dementia and Audio or Visual Hallucinations; Denies Depression or Anxiety
Physical Exam
Vital Signs
Vital Signs
Temp Pulse Resp BP Pulse Ox
98.6 F 66 16 122/68 93
10/26/23 20:24 10/26/23 23:15 10/26/23 23:15 10/26/23 23:02 10/26/23 23:15
Physical Exam
General: Other (78y M in no acute distress. Mildly tremulous at times with occasional myoclonic jerks.)
HEENT: Moist mucous membranes and PERRLA
Respiratory: Other (Few bibasilar rakles - otherwise clear. No wheeze / rhonchi.)
Cardiac: S1/S2 and Regular Rhythm; No Murmur
GI: Soft, Non Tender, Non Distended and Normal Bowel Sounds
Genito-urinary: No costovertebral tender
Musculoskeletal: No Clubbing, No Cyanosis and Other (1+ pitting edema b/l LEs.)
Neuro: Awake and Alert; No Oriented
Laboratory Results
-
10/26/23 20:44
10/26/23 20:44
Laboratory Results
Lactic Acid 2.8 mmol/L (0.7-2.0) H 10/26/23 20:44
Total Bilirubin 0.8 mg/dl (0.2-1.3) 10/26/23 20:44
AST 22 U/L (17-59) 10/26/23 20:44
ALT 21 U/L (0-50) 10/26/23 20:44
Alkaline Phosphatase 96 U/L (38-126) 10/26/23 20:44
Impression/Plan
-
A/P: Patient is an 78y M with PMH significant for dementia, hypertension and BPH who presents to ED for evaluation of increased confusion, dizziness and weakness.
Acute TME
- Admit for further evaluation and treatment.
- Increased confusion, weakness, dizziness, etc likely secondary to acute infection v med change v other.
- Hold Namenda for now.
- Evaluate / treat suspected UTI as noted below.
- Follow for return to baseline / clinical improvement.
UTI
- UA dipstick is suggestive of UTI; however, UA has absence of WBCs.
- No reported urinary complaints in this chronically incontinent and demented male.
- Recent episode of bowel incontinence / diarrhea certainly risk factor for subsequent urinary infection.
- Will continue with IV abx for now.
- Follow-up culture data and adjust treatment as appropriate.
Flank Pain
- With recent complaints of flank pain and hematuria noted on UA - will check CT for evidence of stone.
- +/- Urology evaluation depending on these results.
JAYLENE
- SCr = 1.5 compared to known baseline of 1.0.
- Hold diuretic regimen for now.
- Gentle IVFs overnight. Follow for improvement.
Senile Dementia
? Parkinsonism
- Recent increase in confusion and return of hallucinations / mild agitation.
- Hold Namenda for now.
- Quetiapine PRN for agitation. Continue usual fluoxetine.
- Treat acute issues as noted above and follow for return to baseline.
- PT / OT evaluations for chronic ataxia.
BPH
- Continue finasteride. Bladder scan protocol.
DVT Prophylaxis: Subcut Heparin.
Code Status: DNR
[2023-10-27] VITALS (8 sets, daily range): BP systolic 112–148; BP diastolic 61–84; PULSE 66–97; O2SAT 96; BMI 29.6; BMI 29.5
--- NOTE | 2023-10-27 00:46 | TRANSFER ---
Pt admitted from ED to room 435, patient assisted to stand and pivot to bed. Bed alarm for safety as pt noted to be confused. VSS. Pt daughter was able to assist with admission question. Call mayorga placed within reach.
[2023-10-27] MEDS: NSS 1000 IV ×2 (02:19→16:08)
[2023-10-27 05:56] LABS: Hematocrit 35.8 % (39.0-52.0); Hemoglobin 12.3 g/dL (13.0-18.0); Mean Corp Hgb Conc. 34.4 g/dL (33.0-37.0); Mean Corpuscular Hgb 31.3 pg (27.0-31.0); Mean Corpuscular Volume 91.1 fL (80.0-94.0); Mean Platelet Volume 9.5 fL (7.4-10.4); Platelet Count 201 10^3/uL (130-400); Red Blood Cell Count 3.93 10^6/uL (4.70-6.10); Red Cell Dist. Width 13.2 % (11.5-14.5); White Blood Cell Count 12.5 10^3/uL (4.8-10.8)
[2023-10-27 06:20] LABS: Blood Urea Nitrogen 23 mg/dl (9-20); Calcium 8.6 mg/dl (8.4-10.2); Carbon Dioxide 24 mmol/L (22-30); Chloride 105 mmol/L (98-107); Estimated Creatinine Clearance 70 ml/min; Glucose 108 mg/dl (70-99); Potassium 3.9 mmol/L (3.5-5.1); Sodium 137 mmol/L (135-145); eGFR > 60.00
[2023-10-27] MEDS: HEPARIN 5000 UNITS SC ×2 (08:41→21:18)
[2023-10-27] MEDS: PROTONIX 40 MG PO (08:41)
--- NOTE | 2023-10-27 10:37 | CM ---
Patient seen bedside, daughter Cathryn requesting to speak to CM in cason. CM had patient last admission, patient was discharged to [facility] in [place], [place]. Daughter Cathryn tearful, reports she needs to look into assisted living facilties at
this time and father need more care than she can provide at this time. Daughter reports her father did have a great experience at [facility], was discharged home about 1-2 weeks ago. Daughter reports she had home health aid coming out twice a day
for father but he needs more at this point. Patient PCP Dory Starr, pharmacy [facility] in [facility]. PT/OT ordered. CM will continue to follow for discharge planning needs, will gather resources for patients daughter for assisted living
facilities.
Plan; will depend on PT/OT evaluations, daughter interested in assisted living for father.
--- NOTE | 2023-10-27 10:37 | W.PN.HOSP.TC ---
Addendum entered and electronically signed by Aldair Fernandez DO 10/27/23 11:08:
Family call me back to discuss treating his hallucinations.
I explained that we can certainly try putting him on Seroquel with the understanding of potential side effect of parkinsonism.
Family agrees to start Seroquel nightly and watch for response. Will start low-dose.
As needed Seroquel q8h ordered last night by nurse executive but so far he has not received any doses.
Original Note:
Today's Communication/Plan
-
Bladder scan
Orthostatics
PT/OT
Await cultures
Assessment / Plan
Assessment / Plan
Gen-awake, alert, NAD
HEENT-NC, AT, anicteric, clear oral mm
Neck-supple
CV-reg, no M, +S1/S2
Lungs-clear B/L
Abd-soft, NT, ND
Ext-no edema
Musculoskeletal-no cyanosis, clubbing
Skin-warm and dry
Neuro-grossly non-focal
Psych-calm, cooperative
Acute TME -unclear etiology. Memantine dose recently increased last week, unclear contribution. Certainly volume depletion and potential UTI can contribute to his confusion. Mental status seems improved today.
Has had some lightheadedness prior to admission now improved. Check orthostatics.
Possible UTI -cultures pending. Continue empiric ceftriaxone. Unclear if he had any urinary symptoms. Urinalysis without significant pyuria.
JAYLENE -improved. Suspect due to volume depletion. Continue IV fluids. Furosemide on hold for now.
Alzheimer's dementia -memantine on hold for now. Dose was increased from once daily to twice daily last Saturday according to patient's daughter.
BPH -check bladder scan. Continue finasteride.
Chronic peripheral neuropathy
Anxiety disorder -on fluoxetine.
Hyperlipidemia -on rosuvastatin.
GERD/peptic ulcer disease -on omeprazole.
Chronic ambulatory dysfunction
DNR
PT/OT
Daughter updated at the bedside.
Anticipated Discharge: 24 - 48 hours
Subjective/Interval History
-
Date of Service: October 27, 2023
Patient seen and examined. Daughter at the bedside. He is feeling better, no complaints.
Objective Data
-
Labs:
Laboratory Results
10/27/23
05:36
WBC 12.5 H
Hgb 12.3 L
Hct 35.8 L
Plt Count 201
Sodium 137
Potassium 3.9
Chloride 105
Carbon Dioxide 24
BUN 23 H
Creatinine 1.0
Glucose 108 H
Calcium 8.6
Vital Signs:
Vital Signs
Temp Pulse Resp BP Pulse Ox
98.1 F 72 18 148/82 96
10/27/23 07:09 10/27/23 07:09 10/27/23 07:09 10/27/23 07:09 10/27/23 07:09
I&O
10/26/23 10/27/23 10/28/23
06:59 06:59 06:59
Intake Total 120 / 120
Output Total 400 / 400
Balance -280 / -280
Review of Systems
-
Unable to obtain full review of systems at this time due to: Dementia
History Source: Patient and Family
All other systems: Reviewed and negative
[2023-10-27] MEDS: PROZAC 40 MG PO (17:13)
[2023-10-27] MEDS: CRESTOR 20 MG PO (17:13)
[2023-10-27] MEDS: INDERAL 10 MG PO (17:14)
[2023-10-27] MEDS: PROSCAR 5 MG PO (17:14)
--- NOTE | 2023-10-27 20:09 | W.PN.UPDATE ---
Update Note
Progress Note Update
Nurse reporting that patient has increased garbled speech and difficulty finding words this evening per family. Daughter questioned why no head CT has been done. In review of chart no mention of garbled speech from admitting provider or listed
progress note from assigned attending. Patient admitted with increased confusion, lethargy, and decreased steadiness on his feet. Order placed for head CT w/out contrast.
[2023-10-27] MEDS: SEROQUEL 12.5 MG PO (21:17)
[2023-10-28] MEDS: STERILE WATER FOR INJECTION 10 ML IV (00:29)
[2023-10-28] MEDS: ROCEPHIN 1000 MG IV (00:29)
[2023-10-28] MEDS: NSS 1000 IV (04:03)
[2023-10-28 06:00] VITALS: BMI 29.4
[2023-10-28 06:18] LABS: % Basophils 0.3 % (0-2); % Eosinophils 2.9 % (0-6); % Immature Granulocytes 0.3 % (0-0.5); % Lymphocytes 12.5 % (20.5-51.1); % Monocytes 6.2 % (1.7-9.3); % Neutrophils 77.8 % (42.2-75.2); Absolute Eosinophils 0.3 10^3/uL (0-0.7); Absolute Lymphocytes 1.3 10^3/uL (1.2-3.4); Absolute Monocytes 0.6 10^3/uL (0.1-0.6); Absolute Neutrophils 7.8 10^3/uL (1.4-6.5); Hematocrit 36.5 % (39.0-52.0); Mean Corp Hgb Conc. 32.9 g/dL (33.0-37.0); Mean Corpuscular Hgb 30.8 pg (27.0-31.0); Mean Corpuscular Volume 93.8 fL (80.0-94.0); Mean Platelet Volume 10.8 fL (7.4-10.4); Nucleated Red Blood Cells % 0 % (-); Platelet Count 203 10^3/uL (130-400); Red Blood Cell Count 3.89 10^6/uL (4.70-6.10); Red Cell Dist. Width 13.5 % (11.5-14.5)
[2023-10-28 06:49] LABS: Blood Urea Nitrogen 19 mg/dl (9-20); Calcium 8.5 mg/dl (8.4-10.2); Carbon Dioxide 24 mmol/L (22-30); Chloride 108 mmol/L (98-107); Estimated Creatinine Clearance 78 ml/min; Glucose 98 mg/dl (70-99); Potassium 3.9 mmol/L (3.5-5.1); Sodium 136 mmol/L (135-145); eGFR > 60.00
[2023-10-28 07:31] VITALS: BP 156/74
[2023-10-28 07:35] VITALS: BP 148/77; BP 156/74; PULSE 68
[2023-10-28] MEDS: HEPARIN 5000 UNITS SC ×2 (08:49→22:41)
[2023-10-28] MEDS: PROTONIX 40 MG PO (08:49)
--- NOTE | 2023-10-28 09:21 | W.PN.HOSP.TC ---
Today's Communication/Plan
-
IV antibiotics. Neurology evaluation
Assessment / Plan
Assessment / Plan
Gen-awake, alert, NAD
HEENT-NC, AT, anicteric, clear oral mm
Neck-supple
CV-reg, no M, +S1/S2
Lungs-clear B/L
Abd-soft, NT, ND
Ext-no edema
Musculoskeletal-no cyanosis, clubbing
Skin-warm and dry
Neuro-grossly non-focal
Psych-calm, cooperative
A/P:
Acute TME -seems to be multifactorial including UTI, renal failure, and underlying dementia. Continue antibiotics and change according to urine culture, and continue Seroquel. Neurology consult for further evaluation.
Enterococcal UTI-stop ceftriaxone, start IV ampicillin, follow-up urine culture sensitivity.
JAYLENE -improved. Suspect due to volume depletion. Stopped IV fluids. Furosemide on hold for now. Encourage oral intake.
Alzheimer's dementia -memantine on hold for now. Dose was increased from once daily to twice daily last Saturday according to patient's daughter. Will be okay to restart but continue to hold for now.
BPH -check bladder scan. Continue finasteride.
Chronic peripheral neuropathy
Anxiety disorder and depression-on fluoxetine.
Hyperlipidemia -on rosuvastatin.
GERD/peptic ulcer disease -on omeprazole.
Chronic ambulatory dysfunction
DNR
PT/OT
I spoke with caregiver at bedside today on 10/27. Tried to update daughter today but no avail. I tried couple numbers on the chart with no success. I sent message to RN to see if there is any other numbers we can reach.
Total time spent on today's encounter was 52 minutes which included time spent in counseling the patient/family regarding diagnosis and treatment plan as listed above, goals of care, and symptom management. Case was discussed with nursing staff,
specialists, and care coordinators/case management. All labs and imaging personally reviewed by me. Remainder the time spent in detailed review of previous records, lab data, imaging, and other medical provider documentation.
Anticipated Discharge: > 48 hours
Subjective/Interval History
-
Date of Service: October 28, 2023
Objective Data
-
Labs:
Laboratory Results
10/28/23
04:24
WBC 10.0
Hgb 12.0 L
Hct 36.5 L
Plt Count 203
Sodium 136
Potassium 3.9
Chloride 108 H
Carbon Dioxide 24
BUN 19
Creatinine 0.9
Glucose 98
Calcium 8.5
Vital Signs:
Vital Signs
Temp Pulse Resp BP Pulse Ox
99.8 F 68 16 156/74 92
10/28/23 07:31 10/28/23 07:31 10/28/23 07:31 10/28/23 07:31 10/28/23 07:31
I&O
10/27/23 10/28/23 10/29/23
06:59 06:59 06:59
Intake Total 120 / 120 270 / 270
Output Total 400 / 400 1100 / 1100
Balance -280 / -280 -830 / -830
--- NOTE | 2023-10-28 09:25 | CON.NEURO4 ---
Consultation - Neurology 4
-
CONSULTING PHYSICIAN: Lyn Cordero
REFERRING PHYSICIAN: Hospitalist
DICTATED BY: Lyn Cordero
DATE/TIME OF REQUEST: 10/28/23
DATE/TIME OF CONSULTATION: 10/28/23
Reason for Consultation: Encephalopathy
History of Present Illness:
The patient is an 78-year-old man with a past ministry of anxiety, peripheral neuropathy, GERD, dementia presented to hospital because of generalized and increasing weakness and confusion. Family had noted that he had malodorous urine and abnormal
urine test in the outpatient setting.
His aide relates that he has had both auditory and visual hallucinations. He had had an increase in Namenda from once daily to twice a day on this past week on Saturday. He has been off Zyprexa for approximately 3 weeks which was being used for
hallucinations.
Here the patient was noted to have an JAYLENE with creatinine up to 1.5 from baseline of 1.0 and has been also started on ceftriaxone due to abnormal urinalysis urine culture is pending.
At this time the patient does not have any complaints denies any headache pain or dysuria or abdominal pain denies any hallucinations at this time.
Past Medical History: Mild cognitive impairment versus dementia, peripheral neuropathy, hyperlipidemia, GERD/peptic ulcer disease, anxiety, BPH
Surgical History: None
Family History: Unknown
Social History: Retired, no alcohol or tobacco
Allergies: No known drug allergies
Review of Symptoms:
Patient denies any fever, headache, chest pain, shortness of breath, GI or symptoms.
Physical Exam:
Elderly man no signs of head or neck trauma oropharynx is clear eyes are clear neck supple with no masses, heart rate regular breathing unlabored abdomen soft nontender
Neurologic Examination:
Patient is awake and alert he is oriented to the month year and hospital he recalls who on the [place] this year, and give a few details leading to his hospitalization but denies any hallucinations currently or in the past, speech is fluent with
naming repetition and comprehension intact, decreased short-term memory recall 0/3 after 5 minutes, difficulty with complex multistep commands
Cranial nerve examination shows pupils 3 mm upgoing react light bilaterally, visual hill intact confrontation bilaterally gaze is midline extraocular's are full, smile is symmetric no significant dysarthria appreciated tongue is midline
Motor examination shows no resting tremor or significant rigidity on this exam, 5/5 for shoulder abduction arm flexion hip flexion bilateral
Intact to light touch and noxious stimulation arms and legs and symmetric manner
Reflexes are diminished throughout Babinski is negative no clonus
No ataxia on finger-nose testing bilaterally
Gait examination deferred on this exam
Neuro Imaging: CT head no acute abnormality, no masses, no infarcts
Impressions
1. Very likely toxic metabolic encephalopathy due to JAYLENE, possibly urinary tract infection in a patient at risk for this with existing mild dementia.
2. Dementia may be Alzheimer's disease versus Lewy body dementia given hallucinations which can be commonly seen on either condition
3. Baseline peripheral neuropathy probably contributing some to ambulatory difficulties that have worsened possibly from dementia, UTI, JAYLENE
4.
Recommendations:
1. PRN Seroquel acceptable for insomnia or agitation, start with 12.5 mg PRN q8hr, can increase to 25 mg if tolerating or not effective at the lower dose
2. Follow urine culture, currently on Ceftriaxone
3. Follow renal function
4. Minimize other sedating medications would avoid benzodiazepines, 1st generation antipsychotic, anticholinergics (Benadryl)
5. Continue Fluoxetine
Discussed patient care with: Patient, aide
[2023-10-28] MEDS: SEROQUEL 12.5 MG PO ×2 (15:19→22:42)
[2023-10-28 15:51] VITALS: BP 152/83
[2023-10-28] MEDS: AMPICILLIN 108 MG IV ×2 (16:33→22:41)
--- NOTE | 2023-10-28 16:45 | CM ---
Chart reviewed and message left for patient's daughter to review skilled placement. Patient was at [facility] in [place]. marketing production manager spoke with patient's son in law, Torsten at bedside.
Plan; Skilled placement.
[2023-10-28] MEDS: CRESTOR 20 MG PO (17:54)
[2023-10-28] MEDS: INDERAL 10 MG PO (17:54)
[2023-10-28] MEDS: PROZAC 40 MG PO (17:54)
[2023-10-28] MEDS: PROSCAR 5 MG PO (17:55)
[2023-10-28 22:52] VITALS: BP 165/80
[2023-10-29] MEDS: AMPICILLIN 108 MG IV ×4 (03:23→22:24)
[2023-10-29 05:36] LABS: % Basophils 0.5 % (0-2); % Eosinophils 5.2 % (0-6); % Immature Granulocytes 0.5 % (0-0.5); % Lymphocytes 15.6 % (20.5-51.1); % Monocytes 6.8 % (1.7-9.3); % Neutrophils 71.4 % (42.2-75.2); Absolute Eosinophils 0.4 10^3/uL (0-0.7); Absolute Lymphocytes 1.3 10^3/uL (1.2-3.4); Absolute Monocytes 0.6 10^3/uL (0.1-0.6); Absolute Neutrophils 6.1 10^3/uL (1.4-6.5); Hematocrit 37.5 % (39.0-52.0); Hemoglobin 12.7 g/dL (13.0-18.0); Mean Corp Hgb Conc. 33.9 g/dL (33.0-37.0); Mean Corpuscular Volume 91.5 fL (80.0-94.0); Mean Platelet Volume 9.6 fL (7.4-10.4); Nucleated Red Blood Cells % 0 % (-); Platelet Count 183 10^3/uL (130-400); Red Cell Dist. Width 13.2 % (11.5-14.5); White Blood Cell Count 8.5 10^3/uL (4.8-10.8)
[2023-10-29 06:00] VITALS: BMI 29.4
[2023-10-29 06:16] LABS: Blood Urea Nitrogen 15 mg/dl (9-20); Calcium 8.5 mg/dl (8.4-10.2); Carbon Dioxide 26 mmol/L (22-30); Chloride 106 mmol/L (98-107); Estimated Creatinine Clearance 78 ml/min; Glucose 92 mg/dl (70-99); Potassium 3.7 mmol/L (3.5-5.1); Sodium 137 mmol/L (135-145); eGFR > 60.00
[2023-10-29 07:00] VITALS: BP 138/75
[2023-10-29] MEDS: PROTONIX 40 MG PO (07:51)
[2023-10-29] MEDS: HEPARIN 5000 UNITS SC ×2 (07:51→22:24)
--- NOTE | 2023-10-29 09:18 | W.PN.HOSP.TC ---
Today's Communication/Plan
-
Continue antibiotics. PT OT. Discharge planning in progress
Assessment / Plan
Assessment / Plan
Gen-awake, alert, NAD
HEENT-NC, AT, anicteric, clear oral mm
Neck-supple
CV-reg, no M, +S1/S2
Lungs-clear B/L
Abd-soft, NT, ND
Ext-no edema
Musculoskeletal-no cyanosis, clubbing
Skin-warm and dry
Neuro-grossly non-focal
Psych-calm, cooperative, mild disoriented
A/P:
Acute TME -seems to be multifactorial including UTI, renal failure, and underlying dementia. Continue antibiotics and changed y'day according to urine culture, and continue Seroquel. Neurology consult appreciated. Discussed with daughter over the
phone today. Daughter noted some improvement overall. Discussed with supportive employment case manager and plan for skilled rehab upon discharge.
Enterococcal UTI-cont IV ampicillin, follow-up urine culture sensitivity.
JAYLENE -improved. Suspect due to volume depletion. Stopped IV fluids. Furosemide on hold for now. Encourage oral intake.
Alzheimer's dementia -memantine on hold for now. Dose was increased from once daily to twice daily last Saturday according to patient's daughter. Will continue to hold and can consider restart as outpatient but family in favor of not restarting
for now.
BPH -check bladder scan. Continue finasteride.
Chronic peripheral neuropathy
Anxiety disorder and depression-on fluoxetine.
Hyperlipidemia -on rosuvastatin.
GERD/peptic ulcer disease -on omeprazole.
Chronic ambulatory dysfunction
DNR
PT/OT
Anticipated Discharge: 24 - 48 hours
Subjective/Interval History
-
Date of Service: October 29, 2023
Patient more alert today. No hallucinations. Denies any chest pain or shortness of breath. Afebrile
Objective Data
-
Labs:
Laboratory Results
10/29/23
05:23
WBC 8.5
Hgb 12.7 L
Hct 37.5 L
Plt Count 183
Sodium 137
Potassium 3.7
Chloride 106
Carbon Dioxide 26
BUN 15
Creatinine 0.9
Glucose 92
Calcium 8.5
Vital Signs:
Vital Signs
Temp Pulse Resp BP Pulse Ox
97.9 F 56 12 165/80 95
10/28/23 22:52 10/28/23 22:52 10/28/23 22:52 10/28/23 22:52 10/28/23 22:52
I&O
10/28/23 10/29/23 10/30/23
06:59 06:59 06:59
Intake Total 270 / 270
Output Total 1100 / 1100 450 / 450
Balance -830 / -830 -450 / -450
--- NOTE | 2023-10-29 12:32 | CM ---
estimator project manager received a call from patient's daughter Cathryn and she has selected skilled placement at [facility], referral sent to [facility].
Plan; To follow up with skilled placement at [facility].
[2023-10-29 14:26] VITALS: BP 120/61; PULSE 60
[2023-10-29 14:30] VITALS: BP 120/61; PULSE 59; O2SAT 94
[2023-10-29 15:00] VITALS: BP 128/58
[2023-10-29] MEDS: CRESTOR 20 MG PO (17:20)
[2023-10-29] MEDS: PROSCAR 5 MG PO (17:20)
[2023-10-29] MEDS: INDERAL 10 MG PO (17:20)
[2023-10-29] MEDS: PROZAC 40 MG PO (17:22)
[2023-10-29] MEDS: SEROQUEL 12.5 MG PO (22:24)
[2023-10-29 22:55] VITALS: BP 141/82
[2023-10-30] MEDS: AMPICILLIN 108 MG IV ×4 (04:23→22:05)
[2023-10-30 05:18] LABS: % Basophils 0.3 % (0-2); % Eosinophils 5.3 % (0-6); % Immature Granulocytes 0.4 % (0-0.5); % Lymphocytes 14.8 % (20.5-51.1); % Neutrophils 73.2 % (42.2-75.2); Absolute Eosinophils 0.6 10^3/uL (0-0.7); Absolute Lymphocytes 1.6 10^3/uL (1.2-3.4); Absolute Monocytes 0.6 10^3/uL (0.1-0.6); Absolute Neutrophils 7.7 10^3/uL (1.4-6.5); Hematocrit 37.7 % (39.0-52.0); Mean Corp Hgb Conc. 34.5 g/dL (33.0-37.0); Mean Corpuscular Hgb 31.1 pg (27.0-31.0); Mean Corpuscular Volume 90.2 fL (80.0-94.0); Mean Platelet Volume 9.7 fL (7.4-10.4); Nucleated Red Blood Cells % 0 % (-); Platelet Count 224 10^3/uL (130-400); Red Blood Cell Count 4.18 10^6/uL (4.70-6.10); Red Cell Dist. Width 13.3 % (11.5-14.5); White Blood Cell Count 10.5 10^3/uL (4.8-10.8)
[2023-10-30 05:36] LABS: Blood Urea Nitrogen 20 mg/dl (9-20); Calcium 9.2 mg/dl (8.4-10.2); Carbon Dioxide 24 mmol/L (22-30); Chloride 105 mmol/L (98-107); Estimated Creatinine Clearance 70 ml/min; Glucose 113 mg/dl (70-99); Potassium 3.9 mmol/L (3.5-5.1); Sodium 137 mmol/L (135-145); eGFR > 60.00
[2023-10-30 06:00] VITALS: BMI 29.0
[2023-10-30 07:00] VITALS: BP 115/73
--- NOTE | 2023-10-30 08:42 | W.PN.HOSP.TC ---
Today's Communication/Plan
-
Continue IV antibiotics. PT OT.
Assessment / Plan
Assessment / Plan
Gen-awake, alert, NAD
HEENT-NC, AT, anicteric, clear oral mm
Neck-supple
CV-reg, no M, +S1/S2
Lungs-clear B/L
Abd-soft, NT, ND
Ext-no edema
Musculoskeletal-no cyanosis, clubbing
Skin-warm and dry
Neuro-grossly non-focal
Psych-calm, cooperative, mild disoriented
A/P:
Acute TME -seems to be multifactorial including UTI, renal failure, and underlying dementia. Continue antibiotics and changed y'day according to urine culture, and continue Seroquel. Neurology consult appreciated. Discussed with daughter over the
phone today. Daughter noted some improvement overall. Discussed with case management rn and plan for skilled rehab upon discharge.
Enterococcal UTI-cont IV ampicillin, follow-up urine culture sensitivity.
JAYLENE -improved. Suspect due to volume depletion. Stopped IV fluids. Furosemide on hold for now. Encourage oral intake.
Alzheimer's dementia -memantine on hold for now. Dose was increased from once daily to twice daily last Saturday according to patient's daughter. Will continue to hold and can consider restart as outpatient but family in favor of not restarting
for now.
BPH -check bladder scan. Continue finasteride.
Chronic peripheral neuropathy
Anxiety disorder and depression-on fluoxetine.
Hyperlipidemia -on rosuvastatin.
GERD/peptic ulcer disease -on omeprazole.
Chronic ambulatory dysfunction
DNR
PT/OT
Anticipated Discharge: Within 24 hours
Subjective/Interval History
-
Date of Service: October 30, 2023
Patient alert but confused on and off. Afebrile
Objective Data
-
Labs:
Laboratory Results
10/30/23
04:47
WBC 10.5
Hgb 13.0
Hct 37.7 L
Plt Count 224 D
Sodium 137
Potassium 3.9
Chloride 105
Carbon Dioxide 24
BUN 20
Creatinine 1.0
Glucose 113 H
Calcium 9.2
Vital Signs:
Vital Signs
Temp Pulse Resp BP Pulse Ox
98.2 F 68 18 115/73 94
10/30/23 07:00 10/30/23 07:00 10/30/23 07:00 10/30/23 07:00 10/30/23 07:00
I&O
10/29/23 10/30/23 10/31/23
06:59 06:59 06:59
Intake Total 720 / 720
Output Total 450 / 450 700 / 700
Balance -450 / -450 20 / 20
[2023-10-30] MEDS: HEPARIN 5000 UNITS SC ×2 (08:56→20:28)
[2023-10-30] MEDS: PROTONIX 40 MG PO (08:56)
--- NOTE | 2023-10-30 12:07 | CM ---
telephonic case manager continues to follow with patient for skilled placement, bilingual case manager spoke with [facility] admissions and they have accepted patient. Per physician note last day of IV ABX is today. telephonic case manager spoke with patient's daughter, Cathryn and
discussed future planning for patient, list of assisted livings and nursing along with Medicare ratings provided. telephonic case manager met with patient's caregiver at bedside.
Per patient's daughter Cathryn she will provided transport for patient to [facility] tomorrow if cleared for discharge.
[facility]
Report [phone]
--- NOTE | 2023-10-30 12:54 | PTCARENOTE ---
Pt fell out of bed. Bed alarm was on, and patient rushed out of bed saying he 'had to go to work'. Pt states he hit his head but 'not too hard'. No bleeding noted anywhere on body. Pt is back in bed. Dr Waters was notified.
[2023-10-30 15:00] VITALS: BP 139/70
[2023-10-30] MEDS: PROZAC 40 MG PO (17:09)
[2023-10-30] MEDS: CRESTOR 20 MG PO (17:09)
[2023-10-30] MEDS: PROSCAR 5 MG PO (17:09)
[2023-10-30] MEDS: INDERAL 10 MG PO (17:09)
[2023-10-30] MEDS: SEROQUEL 12.5 MG PO (20:28)
[2023-10-31 00:05] VITALS: BP 142/67
[2023-10-31] MEDS: AMPICILLIN 108 MG IV ×2 (04:22→09:16)
[2023-10-31 04:33] VITALS: BMI 29.7
[2023-10-31 06:31] LABS: % Basophils 0.2 % (0-2); % Eosinophils 3.2 % (0-6); % Immature Granulocytes 0.4 % (0-0.5); % Lymphocytes 15.3 % (20.5-51.1); % Monocytes 6.6 % (1.7-9.3); % Neutrophils 74.3 % (42.2-75.2); Absolute Eosinophils 0.3 10^3/uL (0-0.7); Absolute Lymphocytes 1.5 10^3/uL (1.2-3.4); Absolute Monocytes 0.6 10^3/uL (0.1-0.6); Absolute Neutrophils 7.1 10^3/uL (1.4-6.5); Hematocrit 38.9 % (39.0-52.0); Hemoglobin 12.9 g/dL (13.0-18.0); Mean Corp Hgb Conc. 33.2 g/dL (33.0-37.0); Mean Corpuscular Hgb 30.8 pg (27.0-31.0); Mean Corpuscular Volume 92.8 fL (80.0-94.0); Mean Platelet Volume 10.7 fL (7.4-10.4); Nucleated Red Blood Cells % 0 % (-); Platelet Count 218 10^3/uL (130-400); Red Blood Cell Count 4.19 10^6/uL (4.70-6.10); Red Cell Dist. Width 13.2 % (11.5-14.5); White Blood Cell Count 9.6 10^3/uL (4.8-10.8)
[2023-10-31 06:52] LABS: Blood Urea Nitrogen 15 mg/dl (9-20); Calcium 8.7 mg/dl (8.4-10.2); Carbon Dioxide 25 mmol/L (22-30); Chloride 109 mmol/L (98-107); Estimated Creatinine Clearance 78 ml/min; Glucose 98 mg/dl (70-99); Potassium 3.7 mmol/L (3.5-5.1); Sodium 138 mmol/L (135-145); eGFR > 60.00
[2023-10-31 07:00] VITALS: BP 153/81
[2023-10-31] MEDS: HEPARIN 5000 UNITS SC ×2 (09:14→20:59)
[2023-10-31] MEDS: PROTONIX 40 MG PO (09:14)
--- NOTE | 2023-10-31 09:46 | W.PN.HOSP.TC ---
Today's Communication/Plan
-
Continue current management. Discharge planning today.
Assessment / Plan
Assessment / Plan
Gen-awake, alert, NAD
HEENT-NC, AT, anicteric, clear oral mm
Neck-supple
CV-reg, no M, +S1/S2
Lungs-clear B/L
Abd-soft, NT, ND
Ext-no edema
Musculoskeletal-no cyanosis, clubbing
Skin-warm and dry
Neuro-grossly non-focal
Psych-calm, cooperative, mild disoriented
A/P:
Acute TME -seems to be multifactorial including UTI, renal failure, and underlying dementia. Continue antibiotics and changed according to urine culture, and continue Seroquel- will be as needed. Neurology consult appreciated. Discussed with
daughter at bedside today on 10/30. Daughter noted some improvement overall. Discussed with director of casework department and plan for skilled rehab upon discharge, likely today.
Enterococcal UTI-change IV ampicillin to amoxicillin today, reviewed urine culture sensitivity.
JAYLENE -improved. Suspect due to volume depletion. Stopped IV fluids. Furosemide on hold for now but can resume at discharge. Encourage oral intake.
Alzheimer's dementia -memantine on hold for now. Dose was increased from once daily to twice daily last Saturday according to patient's daughter. Will continue to hold and can consider restart as outpatient but family in favor of not restarting
for now.
BPH -check bladder scan. Continue finasteride.
Chronic peripheral neuropathy
Anxiety disorder and depression-on fluoxetine.
Hyperlipidemia -on rosuvastatin.
GERD/peptic ulcer disease -on omeprazole.
Chronic ambulatory dysfunction
DNR
PT/OT
Anticipated Discharge: Today
Subjective/Interval History
-
Date of Service: October 31, 2023
Patient had a fall yesterday and had a CT scan of the head that was unremarkable. Today he feels well and less lightheadedness overall.
Objective Data
-
Labs:
Laboratory Results
10/31/23
05:28
WBC 9.6
Hgb 12.9 L
Hct 38.9 L
Plt Count 218
Sodium 138
Potassium 3.7
Chloride 109 H
Carbon Dioxide 25
BUN 15
Creatinine 0.9
Glucose 98
Calcium 8.7
Vital Signs:
Vital Signs
Temp Pulse Resp BP Pulse Ox
98.0 F 77 18 153/81 92
10/31/23 07:00 10/31/23 07:00 10/31/23 07:00 10/31/23 07:00 10/31/23 07:00
I&O
10/30/23 10/31/23 11/01/23
06:59 06:59 06:59
Intake Total 720 / 720 1440 / 1440
Output Total 700 / 700 600 / 800 200 / 200
Balance 20 / 20 840 / 640 -200 / -200
--- NOTE | 2023-10-31 10:42 | CM ---
Addendum entered by Karen Lee 10/31/23 15:49:
Attending notified of delay via [place] [facility]; also spoke with patient's daughter via phone
Addendum entered by Karen Lee 10/31/23 15:42:
IMM explained to daughter, Cathryn, via phone
Addendum entered by Karen Lee 10/31/23 15:32:
Per [facility] liaision, patient must be off bed alarm for 24 hours before they can accept him
Case Management will follow up tomorrow
Addendum entered by Karen Lee 10/31/23 14:45:
[facility]
Report [phone]

Addendum entered by Karen Lee 10/31/23 14:43:
Patient is stable for discharge
Plan: discharge to [facility] pending bed availability; waiting to hear from Tami Rivers
Original Note:
Per patient's RN, daughter changed her mind; she is NOT able to transport patient to [facility]
will schedule ambulance transport when stable for discharge to SNF; patient requires assist of 2; has Dementia
[2023-10-31 11:11] VITALS: BP 140/75; PULSE 65; O2SAT 95
[2023-10-31 15:00] VITALS: BP 147/71
[2023-10-31] MEDS: AMOXIL 500 MG PO (15:35)
[2023-10-31] MEDS: PROZAC 40 MG PO (17:16)
[2023-10-31] MEDS: CRESTOR 20 MG PO (17:17)
[2023-10-31] MEDS: PROSCAR 5 MG PO (17:17)
[2023-10-31] MEDS: INDERAL 10 MG PO (17:17)
[2023-10-31] MEDS: SEROQUEL 12.5 MG PO (20:59)
[2023-10-31 23:25] VITALS: BP 168/85
--- NOTE | 2023-10-31 23:56 | W.PN.UPDATE ---
Update Note
Progress Note Update
2300 pt unwitnessed fall. found sitting on floor.
vital signs stable
bed alarm off at the time as pt needs to be off bed alrm for 24 hr prior to dc to [facility].
pt does have dementia. He tells me he did not hit head. He is on no anticoagulants. small abrasion to upper back.
SILVA
[2023-11-01] MEDS: AMOXIL 500 MG PO ×3 (00:30→15:57)
--- NOTE | 2023-11-01 03:52 | PTCARENOTE ---
Patient found sitting on floor at 2300 on 10/31/23 by pct. Patient denies hitting head. Abrasion noted on patient`s left side of back, no other open areas noted. Neuro assessment remains unchanged. See chart for vitals. Fall reported to Katina Gardner nurse
practitioner and nursing supervisor paste mixing. Bed alarm taken off at 1530 10/31/23 due to patient possibly being discharged to [facility]. Hourly rounding performed. Call mayorga within reach. Bed alarm plugged back into wall after fall. Fall risk education
provided.
[2023-11-01 06:00] VITALS: BMI 29.4
[2023-11-01 07:00] VITALS: BP 155/84
--- NOTE | 2023-11-01 08:46 | W.PN.HOSP.TC ---
Today's Communication/Plan
-
Continue current management. Discharge planning in progress
Assessment / Plan
Assessment / Plan
Gen-awake, alert, NAD
HEENT-NC, AT, anicteric, clear oral mm
Neck-supple
CV-reg, no M, +S1/S2
Lungs-clear B/L
Abd-soft, NT, ND
Ext-no edema
Musculoskeletal-no cyanosis, clubbing
Skin-warm and dry
Neuro-grossly non-focal
Psych-calm, cooperative, mild disoriented
A/P:
Acute TME -seems to be multifactorial including UTI, renal failure, and underlying dementia. Continue antibiotics and changed according to urine culture, and continue Seroquel- will be as needed. Neurology consult appreciated. Discussed with
daughter at bedside. Daughter noted some improvement overall. Discussed with outsole caser and plan for skilled rehab upon discharge.
Enterococcal UTI-changed IV ampicillin to amoxicillin, reviewed urine culture sensitivity.
JAYLENE -improved. Suspect due to volume depletion. Stopped IV fluids. Furosemide on hold for now but can resume at discharge. Encourage oral intake.
Alzheimer's dementia -memantine on hold for now. Dose was increased from once daily to twice daily last Saturday according to patient's daughter. Will continue to hold and can consider restart as outpatient but family in favor of not restarting
for now.
BPH -check bladder scan. Continue finasteride.
Chronic peripheral neuropathy
Anxiety disorder and depression-on fluoxetine.
Hyperlipidemia -on rosuvastatin.
GERD/peptic ulcer disease -on omeprazole.
Chronic ambulatory dysfunction
DNR
PT/OT
Anticipated Discharge: 24 - 48 hours
Subjective/Interval History
-
Date of Service: November 01, 2023
Patient had to be placed in bed alarm overnight. Afebrile.
Objective Data
-
Vital Signs:
Vital Signs
Temp Pulse Resp BP Pulse Ox
97.9 F 69 18 155/84 93
11/01/23 07:00 11/01/23 07:00 11/01/23 07:00 11/01/23 07:00 11/01/23 07:00
I&O
10/31/23 11/01/23 11/02/23
06:59 06:59 06:59
Intake Total 1440 / 1440 540 / 540
Output Total 600 / 800 400 / 400
Balance 840 / 640 140 / 140
[2023-11-01] MEDS: HEPARIN 5000 UNITS SC ×2 (08:59→21:43)
[2023-11-01] MEDS: PROTONIX 40 MG PO (08:59)
--- NOTE | 2023-11-01 14:04 | CM ---
Chart reviewed and patient is currently on bed alarm, [facility] sent to [facility] and they will not accept patient on bed alarm. Patient's daughter Cathryn requested referrals to [facility] in [place] and [facility], per Deborah in admissions at [facility] they cannot take patient on a bed alarm. Physician and nursing aware.
Plan; Skilled placement.
[2023-11-01 15:06] VITALS: BP 136/68
[2023-11-01] MEDS: PROSCAR 5 MG PO (17:36)
[2023-11-01] MEDS: INDERAL 10 MG PO (17:36)
[2023-11-01] MEDS: CRESTOR 20 MG PO (17:36)
[2023-11-01] MEDS: PROZAC 40 MG PO (17:36)
[2023-11-01] MEDS: SEROQUEL 12.5 MG PO (21:46)
[2023-11-01 23:25] VITALS: BP 127/61
[2023-11-02] MEDS: AMOXIL 500 MG PO ×4 (00:26→23:48)
[2023-11-02 06:00] VITALS: BMI 28.5
[2023-11-02 07:30] VITALS: BP 139/72
--- NOTE | 2023-11-02 09:00 | W.PN.HOSP.TC ---
Today's Communication/Plan
-
Continue oral antibiotics. Continue antipsychotics. Discharge planning in progress
Assessment / Plan
Assessment / Plan
Gen-awake, alert, NAD
HEENT-NC, AT, anicteric, clear oral mm
Neck-supple
CV-reg, no M, +S1/S2
Lungs-clear B/L
Abd-soft, NT, ND
Ext-no edema
Musculoskeletal-no cyanosis, clubbing
Skin-warm and dry
Neuro-grossly non-focal
Psych-calm, cooperative, mild disoriented
A/P:
Acute TME -seems to be multifactorial including UTI, renal failure, and underlying dementia. Continue antibiotics and changed according to urine culture, and continue Seroquel- will be as needed. Neurology consult appreciated. Discussed with
daughter at bedside today on 11/01. Daughter noted some improvement overall. Discussed with case specialist and plan for skilled rehab upon discharge.
Enterococcal UTI-changed IV ampicillin to amoxicillin, reviewed urine culture sensitivity.
JAYLENE -improved. Suspect due to volume depletion. Stopped IV fluids. Furosemide on hold for now but can resume at discharge. Encourage oral intake.
Alzheimer's dementia -memantine on hold for now. Dose was increased from once daily to twice daily last Saturday according to patient's daughter. Will continue to hold and can consider restart as outpatient but family in favor of not restarting
for now.
BPH -check bladder scan. Continue finasteride.
Chronic peripheral neuropathy
Anxiety disorder and depression-on fluoxetine.
Hyperlipidemia -on rosuvastatin.
GERD/peptic ulcer disease -on omeprazole.
Chronic ambulatory dysfunction
DNR
PT/OT
Anticipated Discharge: 24 - 48 hours
Subjective/Interval History
-
Date of Service: November 02, 2023
Patient alert, pleasantly disoriented, less hallucinations. Afebrile
Objective Data
-
Vital Signs:
Vital Signs
Temp Pulse Resp BP Pulse Ox
98.1 F 62 18 139/72 95
11/02/23 07:30 11/02/23 07:30 11/02/23 07:30 11/02/23 07:30 11/02/23 07:30
I&O
11/01/23 11/02/23 11/03/23
06:59 06:59 06:59
Intake Total 640 / 640 540 / 540
Output Total 400 / 400 475 / 475
Balance 240 / 240 65 / 65
[2023-11-02] MEDS: PROTONIX 40 MG PO (09:05)
[2023-11-02] MEDS: HEPARIN 5000 UNITS SC ×2 (09:05→21:53)
[2023-11-02 15:35] VITALS: BP 117/66
[2023-11-02] MEDS: INDERAL 10 MG PO (17:09)
[2023-11-02] MEDS: CRESTOR 20 MG PO (17:09)
[2023-11-02] MEDS: PROZAC 40 MG PO (17:09)
[2023-11-02] MEDS: PROSCAR 5 MG PO (17:09)
[2023-11-02] MEDS: SEROQUEL 12.5 MG PO (21:54)
[2023-11-02 23:03] VITALS: BP 143/74
[2023-11-03 06:00] VITALS: BMI 28.5
[2023-11-03 07:47] VITALS: BP 134/94
[2023-11-03] MEDS: PROTONIX 40 MG PO (08:47)
[2023-11-03] MEDS: AMOXIL 500 MG PO ×3 (08:47→23:05)
[2023-11-03] MEDS: HEPARIN 5000 UNITS SC ×2 (08:48→22:20)
--- NOTE | 2023-11-03 10:29 | W.PN.HOSP.TC ---
Today's Communication/Plan
-
Continue current oral antibiotics and antipsychotics. Discharge planning in progress.
Assessment / Plan
Assessment / Plan
Gen-awake, alert, NAD
HEENT-NC, AT, anicteric, clear oral mm
Neck-supple
CV-reg, no M, +S1/S2
Lungs-clear B/L
Abd-soft, NT, ND
Ext-no edema
Musculoskeletal-no cyanosis, clubbing
Skin-warm and dry
Neuro-grossly non-focal
Psych-calm, cooperative, mild disoriented
A/P:
Acute TME -seems to be multifactorial including UTI, renal failure, and underlying dementia. Continue antibiotics and changed according to urine culture, and continue Seroquel- will be as needed. Neurology consult appreciated. Discussed with
daughter at bedside today on 11/02. Daughter noted some improvement overall. Discussed with bilingual patient support caseworker and plan for skilled rehab upon discharge.
Enterococcal UTI-changed IV ampicillin to amoxicillin, reviewed urine culture sensitivity.
JAYLENE -improved. Suspect due to volume depletion. Stopped IV fluids. Furosemide on hold for now but can resume at discharge. Encourage oral intake.
Alzheimer's dementia -memantine on hold for now. Dose was increased from once daily to twice daily last Saturday according to patient's daughter. Will continue to hold and can consider restart as outpatient but family in favor of not restarting
for now.
BPH -check bladder scan. Continue finasteride.
Chronic peripheral neuropathy
Anxiety disorder and depression-on fluoxetine.
Hyperlipidemia -on rosuvastatin.
GERD/peptic ulcer disease -on omeprazole.
Chronic ambulatory dysfunction
DNR
PT/OT
Anticipated Discharge: 24 - 48 hours
Subjective/Interval History
-
Date of Service: November 03, 2023
Patient alert and less confusion and hallucinations. Denies chest pain or shortness of breath. Afebrile
Objective Data
-
Vital Signs:
Vital Signs
Temp Pulse Resp BP Pulse Ox
98.7 F 72 24 134/94 94
11/03/23 07:47 11/03/23 07:47 11/03/23 07:47 11/03/23 07:47 11/03/23 07:47
I&O
11/02/23 11/03/23 11/04/23
06:59 06:59 06:59
Intake Total 540 / 540 200 / 200
Output Total 475 / 475
Balance 65 / 65 200 / 200
[2023-11-03 12:22] VITALS: BP 110/69; BP 115/61; PULSE 74
[2023-11-03 15:39] VITALS: BP 129/73
--- NOTE | 2023-11-03 15:43 | PTCARENOTE ---
Pt was found by LOPEZ Gracia to have pulled IV out. Pt does not have any scheduled IV medications at this time, will leave IV out unless needed.
--- NOTE | 2023-11-03 18:30 | PTCARENOTE ---
Pt was very cooperative with staff. Did not set bed/chair alarm off at all today. Was OOB to chair for entire afternoon. 1 assist to bathroom c RW in room and used call mayorga when finished as instructed. Made no attempts to get up on his own.
Compliant with medications and good appetite. VSS. Plan of care ongoing.
[2023-11-03] MEDS: PROSCAR 5 MG PO (18:50)
[2023-11-03] MEDS: INDERAL 10 MG PO (18:50)
[2023-11-03] MEDS: PROZAC 40 MG PO (18:50)
[2023-11-03] MEDS: CRESTOR 20 MG PO (18:50)
[2023-11-03] MEDS: SEROQUEL 12.5 MG PO (22:26)
[2023-11-03 23:17] VITALS: BP 114/66
[2023-11-04] MEDS: PROTONIX 40 MG PO (08:43)
[2023-11-04] MEDS: AMOXIL 500 MG PO ×2 (08:43→15:35)
[2023-11-04] MEDS: HEPARIN 5000 UNITS SC ×2 (08:44→20:21)
--- NOTE | 2023-11-04 10:21 | W.PN.HOSP.TC ---
Today's Communication/Plan
-
Discharge planning
Assessment / Plan
Assessment / Plan
Gen-awake, alert, NAD
HEENT-NC, AT, anicteric, clear oral mm
Neck-supple
CV-reg, no M, +S1/S2
Lungs-clear B/L
Abd-soft, NT, ND
Ext-no edema
Musculoskeletal-no cyanosis, clubbing
Skin-warm and dry
Neuro-grossly non-focal
Psych-calm, cooperative, mild disoriented
Acute TME -resolved. Continue Seroquel at bedtime.
Enterococcal UTI-changed IV ampicillin to amoxicillin, reviewed urine culture sensitivity. Today is his last day of antibiotics, they were started on October 27 with IV ampicillin, currently on oral amoxicillin.
JAYLENE -improved. Suspect due to volume depletion. Stopped IV fluids. Furosemide on hold for now but can resume at discharge. Encourage oral intake.
Alzheimer's dementia -memantine on hold for now. Dose was increased from once daily to twice daily last Saturday according to patient's daughter. Will continue to hold and can consider restart as outpatient but family in favor of not restarting
for now.
BPH -check bladder scan. Continue finasteride.
Chronic peripheral neuropathy
Anxiety disorder and depression-on fluoxetine.
Hyperlipidemia -on rosuvastatin.
GERD/peptic ulcer disease -on omeprazole.
Chronic ambulatory dysfunction
DNR
Dispo -medically stable for discharge to SNF. Will need memory care unit thereafter. Updated daughter at the bedside. Case management updated. Discussed with nurse.
Anticipated Discharge: Within 24 hours
Subjective/Interval History
-
Date of Service: November 04, 2023
Patient seen and examined. Daughter at the bedside. No complaints today.
Objective Data
-
Vital Signs:
Vital Signs
Temp Pulse Resp BP Pulse Ox
98.4 F 61 16 114/66 93
11/03/23 23:17 11/03/23 23:17 11/03/23 23:17 11/03/23 23:17 11/03/23 23:17
I&O
11/03/23 11/04/23 11/05/23
06:59 06:59 06:59
Intake Total 200 / 200 1080 / 1080
Output Total 300 / 300
Balance 200 / 200 780 / 780
Review of Systems
-
Unable to obtain full review of systems at this time due to: Dementia
--- NOTE | 2023-11-04 15:29 | CM ---
Chart reviewed and plan is for skilled placement at [facility] or [facility]. Update sent through [facility].
Plan; Skilled placement
--- NOTE | 2023-11-04 16:14 | PTCARENOTE ---
Pt TXFR to room 425- [address] [place]. Report given to LOPEZ Badillo. Pt off bed alarm at this time. Pt oriented to room with call mayorga in place.
[2023-11-04] MEDS: CRESTOR 20 MG PO (17:14)
[2023-11-04] MEDS: PROZAC 40 MG PO (17:14)
[2023-11-04] MEDS: INDERAL 10 MG PO (17:14)
[2023-11-04] MEDS: PROSCAR 5 MG PO (17:14)
[2023-11-04] MEDS: SEROQUEL 12.5 MG PO (20:21)
[2023-11-04 23:00] VITALS: BP 121/69
[2023-11-05 07:30] VITALS: BP 157/74
[2023-11-05 07:56] VITALS: BMI 28.3
[2023-11-05] MEDS: PROTONIX 40 MG PO (08:10)
[2023-11-05] MEDS: HEPARIN 5000 UNITS SC (08:10)
--- NOTE | 2023-11-05 08:57 | W.PN.HOSP.TC ---
Today's Communication/Plan
-
Bladder scan
Discharge planning
Assessment / Plan
Assessment / Plan
Gen-awake, alert, NAD
HEENT-NC, AT, anicteric, clear oral mm
Neck-supple
CV-reg, no M, +S1/S2
Lungs-clear B/L
Abd-soft, NT, ND
Ext-no edema
Musculoskeletal-no cyanosis, clubbing
Skin-warm and dry
Neuro-grossly non-focal
Psych-calm, cooperative, mild disoriented
Acute TME -resolved. Continue Seroquel at bedtime.
Enterococcal UTI- Completed course of antibiotics.
JAYLENE -improved. Suspect due to volume depletion. Stopped IV fluids. Furosemide on hold for now but can resume at discharge. Weight is down compared to admission.
Alzheimer's dementia -memantine on hold for now. Dose was increased from once daily to twice daily last Saturday according to patient's daughter. Will continue to hold and can consider restart as outpatient but family in favor of not restarting
for now.
BPH -check bladder scan. Continue finasteride.
Chronic peripheral neuropathy
Anxiety disorder and depression-on fluoxetine.
Hyperlipidemia -on rosuvastatin.
GERD/peptic ulcer disease -on omeprazole.
Chronic ambulatory dysfunction
DNR
Dispo -medically stable for discharge to SNF. Will need memory care unit thereafter. Case management aware.
Anticipated Discharge: Within 24 hours
Subjective/Interval History
-
Date of Service: November 05, 2023
Patient seen and examined. Complaining of frequent urination.
Objective Data
-
Vital Signs:
Vital Signs
Temp Pulse Resp BP Pulse Ox
98.2 F 57 18 157/74 96
11/05/23 07:30 11/05/23 07:30 11/05/23 07:30 11/05/23 07:30 11/05/23 07:30
I&O
11/04/23 11/05/23 11/06/23
06:59 06:59 06:59
Intake Total 1080 / 1080 180 / 180
Output Total 300 / 300 600 / 600
Balance 780 / 780 -420 / -420
Review of Systems
-
Unable to obtain full review of systems at this time due to: Dementia
History Source: Patient
All other systems: Reviewed and negative
--- NOTE | 2023-11-05 10:20 | CM ---
Addendum entered by Rosy Plasencia 11/05/23 10:42:
Transport to [facility] at 3:30pm.
Original Note:
sales service route manager continues to follow with patient progress and reached out to admissions at [facility] and [facility] and patient has been accepted at both facilities, clinical case manager spoke with patient and daughter at bedside and they have
selected [facility], clinical case manager will reach out to patient's physician to check if patient still stable for discharge. Daughter to transport patient to [facility].
Plan; Skilled placement at [facility] today
Report [phone]
--- NOTE | 2023-11-05 10:24 | W.DS.TRANS ---
DC Summary - Operations Intern
-
Discharge Instructions:
Discharge Diagnosis/Procedures Toxic metabolic encephalopathy. Enterococcal
urinary tract infection. Acute kidney injury.
Dementia Alzheimer's.
Diet Low Cholesterol
Activity As tolerated
Driving Restrictions No driving
Bathing Restrictions None
Blood Work Please PCP to order CBC, BMP within 1 week
Instructions:
Stand-Alone Forms:
Changes to Home Medications: No
Discharge Medications:
DC Medications w/original date entered in [facility]
acetaminophen 500 mg tablet (Tylenol Extra Strength) 500 mg PO DAILYPRN PRN mild pain 08/29/23
cholecalciferol (vitamin D3) 125 mcg (5,000 unit) tablet 125 mcg PO QPM Supplement 08/29/23
finasteride 5 mg tablet 5 mg PO QPM prostate 08/29/23
fluoxetine 40 mg capsule 40 mg PO QPM Mental Health 08/29/23
padmkuwceugm-qllxvjbj-ymdejh tablet 1 tab PO DAILY Supplement 08/29/23
omeprazole 40 mg capsule,delayed release 40 mg PO DAILY Gastrointestinal Issue 08/29/23
propranolol 10 mg tablet 10 mg PO QPM Blood Pressure 08/29/23
rosuvastatin 20 mg tablet 20 mg PO QPM High Cholesterol 08/29/23
furosemide 20 mg tablet (Lasix) 20 mg PO DAILY #30 tabs 10/31/23
polyethylene glycol 3350 17 gram oral powder packet (HealthyLax) 17 g PO DAILYPRN PRN constipation #0 ea 11/05/23
quetiapine 25 mg tablet 12.5 mg (1/2 x 25 mg) PO HS #0 tabs 11/05/23
sennosides 8.6 mg-docusate sodium 50 mg tablet (Stool Softener-Stimulant Laxative) 1 tab PO BIDPRN PRN constipation #0 tabs 11/05/23
Home Medication Changes
Pending Results: No
[2023-11-05 11:45] VITALS: BP 127/76; PULSE 76; O2SAT 97
[2023-11-05 15:30] VITALS: BP 104/74
== END 2023-11-05 17:00 | DRG 56 ==
LOC: 4 WEST ACU 23:48
PROVIDERS: Hospitalist; ADMITTING PHYSICIAN Hospitalist; ATTENDING PHYSICIAN Hospitalist; CONSULT PHYSICIAN Student in an Organized Health Care Education/Training Program; EMERGENCY PHYSICIAN Emergency Medicine; FAMILY PHYSICIAN Family Medicine
DX: G30.9 Alzheimer's disease, unspecified (principal); G92.8 Other toxic encephalopathy; N39.0 Urinary tract infection, site not specified; N17.9 Acute kidney failure, unspecified; F02.84 Dementia in other diseases classified elsewhere, unspecified severity, with anxiety; R44.0 Auditory hallucinations; G20.A1 Parkinson's disease without dyskinesia, without mention of fluctuations; E78.5 Hyperlipidemia, unspecified; K21.9 Gastro-esophageal reflux disease without esophagitis; K27.9 Peptic ulcer, site unspecified, unspecified as acute or chronic, without hemorrhage or perforation; Z66 Do not resuscitate; R44.1 Visual hallucinations
CPT/HCPCS: 70450; 71046; 74176; 80048; 80053; 81003; 81015; 83605; 84443; 85025; 85027; 87040; 87077; 87086; 87186; 93005; 93306; 96361; 96374; 97116; 97162; 97167; 97530; 97535; 99285

== ENCOUNTER → 2023-11-08 11:21 | Outpatient (REF) | payer OTHER, MEDICARE, SELFPAY ==
[2023-11-08 13:42] LABS: % Basophils 0.5 % (0-2); % Eosinophils 5.6 % (0-6); % Immature Granulocytes 0.2 % (0-0.5); % Lymphocytes 13.8 % (20.5-51.1); % Monocytes 5.8 % (1.7-9.3); % Neutrophils 74.1 % (42.2-75.2); Absolute Basophils 0.1 10^3/uL (0-0.2); Absolute Eosinophils 0.5 10^3/uL (0-0.7); Absolute Lymphocytes 1.3 10^3/uL (1.2-3.4); Absolute Monocytes 0.6 10^3/uL (0.1-0.6); Absolute Neutrophils 7.2 10^3/uL (1.4-6.5); Hematocrit 38.6 % (39.0-52.0); Hemoglobin 12.7 g/dL (13.0-18.0); Mean Corp Hgb Conc. 32.9 g/dL (33.0-37.0); Mean Corpuscular Hgb 30.7 pg (27.0-31.0); Mean Corpuscular Volume 93.2 fL (80.0-94.0); Mean Platelet Volume 11.2 fL (7.4-10.4); Nucleated Red Blood Cells % 0 % (-); Platelet Count 267 10^3/uL (130-400); Red Blood Cell Count 4.14 10^6/uL (4.70-6.10); White Blood Cell Count 9.7 10^3/uL (4.8-10.8)
[2023-11-08 13:59] LABS: Blood Urea Nitrogen 19 mg/dl (9-20); Calcium 8.8 mg/dl (8.4-10.2); Carbon Dioxide 27 mmol/L (22-30); Chloride 104 mmol/L (98-107); Glucose 106 mg/dl (70-99); Potassium 4.2 mmol/L (3.5-5.1); Sodium 139 mmol/L (135-145); eGFR > 60.00
== END ==
LOC: OLABP 11:21
PROVIDERS: ATTENDING PHYSICIAN Family Medicine
DX: G30.9 Alzheimer's disease, unspecified (principal); K27.9 Peptic ulcer, site unspecified, unspecified as acute or chronic, without hemorrhage or perforation; G58.9 Mononeuropathy, unspecified; M62.81 Muscle weakness (generalized); N17.9 Acute kidney failure, unspecified; G92.8 Other toxic encephalopathy
CPT/HCPCS: 36415; 80048; 85025

== ENCOUNTER → 2023-11-13 15:20 | Outpatient (REF) | payer OTHER, MEDICARE, SELFPAY ==
[2023-11-13 17:04] LABS: % Basophils 0.4 % (0-2); % Eosinophils 6.1 % (0-6); % Immature Granulocytes 0.2 % (0-0.5); % Lymphocytes 14.1 % (20.5-51.1); % Monocytes 6.1 % (1.7-9.3); % Neutrophils 73.1 % (42.2-75.2); Absolute Eosinophils 0.6 10^3/uL (0-0.7); Absolute Lymphocytes 1.3 10^3/uL (1.2-3.4); Absolute Monocytes 0.6 10^3/uL (0.1-0.6); Absolute Neutrophils 6.6 10^3/uL (1.4-6.5); Hemoglobin 13.4 g/dL (13.0-18.0); Mean Corp Hgb Conc. 32.7 g/dL (33.0-37.0); Mean Corpuscular Hgb 31.2 pg (27.0-31.0); Mean Corpuscular Volume 95.3 fL (80.0-94.0); Nucleated Red Blood Cells % 0 % (-); Platelet Count 247 10^3/uL (130-400); Red Cell Dist. Width 14.2 % (11.5-14.5); Reticulocyte Count 1.6 % (0.4-2.8); White Blood Cell Count 9.1 10^3/uL (4.8-10.8)
[2023-11-13 17:11] LABS: ALT (SGPT) 32 U/L (0-50); AST (SGOT) 22 U/L (17-59); Albumin 3.6 g/dl (3.5-5.0); Alkaline Phosphatase 93 U/L (38-126); Blood Urea Nitrogen 17 mg/dl (9-20); Calcium 9.1 mg/dl (8.4-10.2); Carbon Dioxide 29 mmol/L (22-30); Chloride 103 mmol/L (98-107); GGTP 18 U/L (15-73); Glucose 115 mg/dl (70-99); Iron 61 ug/dl (49-181); Potassium 4.4 mmol/L (3.5-5.1); Sodium 139 mmol/L (135-145); Total Bilirubin 0.4 mg/dl (0.2-1.3); Total Protein 6.2 g/dl (6.3-8.2); eGFR > 60.00
[2023-11-13 17:20] LABS: Percent Saturation 19 % (20-50); Total Iron Binding Capacity 313 ug/dl (261-462)
[2023-11-13 17:40] LABS: TSH 0.96 uIU/ml (0.47-4.68)
[2023-11-13 18:17] LABS: Folate 11.9 ng/ml (2.76-20); Vitamin B12 426 pg/ml (239-931)
== END ==
LOC: OLABP 15:20
PROVIDERS: ATTENDING PHYSICIAN Family Medicine
DX: G30.9 Alzheimer's disease, unspecified (principal); K27.9 Peptic ulcer, site unspecified, unspecified as acute or chronic, without hemorrhage or perforation; G58.9 Mononeuropathy, unspecified; M62.81 Muscle weakness (generalized); N17.9 Acute kidney failure, unspecified; G92.8 Other toxic encephalopathy
CPT/HCPCS: 36415; 80053; 82607; 82728; 82746; 82784; 82977; 83521; 83540; 83550; 84155; 84165; 84439; 84443; 85025; 85045; 86334

== ENCOUNTER → 2023-11-19 11:45 | Outpatient (REF) | payer OTHER, MEDICARE, SELFPAY ==
[2023-11-19 12:30] LABS: % Basophils 0.5 % (0-2); % Immature Granulocytes 0.2 % (0-0.5); % Lymphocytes 16.9 % (20.5-51.1); % Monocytes 5.7 % (1.7-9.3); % Neutrophils 69.7 % (42.2-75.2); Absolute Eosinophils 0.6 10^3/uL (0-0.7); Absolute Lymphocytes 1.5 10^3/uL (1.2-3.4); Absolute Monocytes 0.5 10^3/uL (0.1-0.6); Absolute Neutrophils 6.2 10^3/uL (1.4-6.5); Hematocrit 41.6 % (39.0-52.0); Hemoglobin 13.4 g/dL (13.0-18.0); Mean Corp Hgb Conc. 32.2 g/dL (33.0-37.0); Mean Corpuscular Hgb 30.5 pg (27.0-31.0); Mean Corpuscular Volume 94.8 fL (80.0-94.0); Mean Platelet Volume 10.7 fL (7.4-10.4); Nucleated Red Blood Cells % 0 % (-); Platelet Count 225 10^3/uL (130-400); Red Blood Cell Count 4.39 10^6/uL (4.70-6.10); Red Cell Dist. Width 13.9 % (11.5-14.5); White Blood Cell Count 8.8 10^3/uL (4.8-10.8)
[2023-11-19 13:23] LABS: ALT (SGPT) 22 U/L (0-50); AST (SGOT) 22 U/L (17-59); Albumin 3.9 g/dl (3.5-5.0); Alkaline Phosphatase 101 U/L (38-126); Blood Urea Nitrogen 19 mg/dl (9-20); Calcium 9.3 mg/dl (8.4-10.2); Carbon Dioxide 24 mmol/L (22-30); Chloride 103 mmol/L (98-107); Glucose 102 mg/dl (70-99); Potassium 4.2 mmol/L (3.5-5.1); Sodium 140 mmol/L (135-145); Total Bilirubin 0.6 mg/dl (0.2-1.3); Total Protein 6.6 g/dl (6.3-8.2); eGFR > 60.00
== END ==
LOC: OLABP 11:45
PROVIDERS: ATTENDING PHYSICIAN Family Medicine
DX: G30.9 Alzheimer's disease, unspecified (principal); G20.A1 Parkinson's disease without dyskinesia, without mention of fluctuations; K27.9 Peptic ulcer, site unspecified, unspecified as acute or chronic, without hemorrhage or perforation; G58.9 Mononeuropathy, unspecified; M62.81 Muscle weakness (generalized); N17.9 Acute kidney failure, unspecified; G92.8 Other toxic encephalopathy
CPT/HCPCS: 36415; 80053; 85025

== ENCOUNTER → 2023-12-02 09:40 | Outpatient (REF) | payer MEDICARE, OTHER, SELFPAY ==
[2023-12-02 16:19] LABS: Urine Albumin Trace (Neg - Trace); Urine Bilirubin Negative (Negative); Urine Character Slightly Cloudy (Clear); Urine Color Yellow; Urine Glucose Negative (Negative); Urine Ketone Negative (Negative); Urine Leukocyte 1+ (Negative); Urine Nitrite Negative (Negative); Urine Occult Blood 1+ (Negative); Urine Urobilinogen 2+ (Neg - 1+)
[2023-12-02 17:38] LABS: Urine Bacteria Many (Negative); Urine Red Blood Cell 0-2 /HPF (0-2)
== END ==
LOC: OLABP 09:40
PROVIDERS: ATTENDING PHYSICIAN Family Medicine
DX: N39.0 Urinary tract infection, site not specified (principal)
CPT/HCPCS: 81003; 81015; 87071; 87086; 87186

== ENCOUNTER → 2024-03-31 13:22 | Outpatient (REF) | payer MEDICARE, OTHER, SELFPAY ==
[2024-03-31 18:09] LABS: Urine Albumin Negative (Neg - Trace); Urine Bilirubin Negative (Negative); Urine Character Clear (Clear); Urine Color Yellow; Urine Glucose Negative (Negative); Urine Ketone Negative (Negative); Urine Leukocyte Negative (Negative); Urine Nitrite Negative (Negative); Urine Occult Blood Negative (Negative); Urine Urobilinogen Negative (Neg - 1+)
== END ==
LOC: OLABLV 13:22
PROVIDERS: ATTENDING PHYSICIAN Nurse Practitioner Gerontology
DX: N39.0 Urinary tract infection, site not specified (principal)
CPT/HCPCS: 81003

== ENCOUNTER → 2024-04-08 11:21 | Outpatient (REF) | payer MEDICARE, OTHER, SELFPAY ==
[2024-04-08 13:01] LABS: Blood Urea Nitrogen 20 mg/dl (9-20); Calcium 8.9 mg/dl (8.4-10.2); Carbon Dioxide 27 mmol/L (22-30); Chloride 104 mmol/L (98-107); Glucose 118 mg/dl (70-99); Potassium 4.5 mmol/L (3.5-5.1); Sodium 142 mmol/L (135-145); eGFR > 60.00
== END ==
LOC: OLABLV 11:21
PROVIDERS: ATTENDING PHYSICIAN Nurse Practitioner Gerontology
DX: E78.5 Hyperlipidemia, unspecified (principal); I10 Essential (primary) hypertension
CPT/HCPCS: 36415; 80048

== ENCOUNTER → 2024-06-02 09:07 | Outpatient (REF) | payer MEDICARE, OTHER, SELFPAY | LOC: OLABLV 09:07 | PROVIDERS: ATTENDING PHYSICIAN Specialist | DX: N39.0 Urinary tract infection, site not specified (principal) | CPT/HCPCS: 87086 ==

== ENCOUNTER → 2024-06-10 12:05 | Outpatient (REF) | payer MEDICARE, OTHER, SELFPAY ==
[2024-06-10 17:29] LABS: Urine Albumin Negative (Neg - Trace); Urine Bilirubin Negative (Negative); Urine Character Clear (Clear); Urine Color Yellow; Urine Glucose Negative (Negative); Urine Ketone Negative (Negative); Urine Leukocyte Negative (Negative); Urine Nitrite Negative (Negative); Urine Occult Blood Negative (Negative); Urine Specific Gravity 1.015 (<1.030); Urine Urobilinogen Negative (Neg - 1+)
== END ==
LOC: OLABLV 12:05
PROVIDERS: ATTENDING PHYSICIAN Nurse Practitioner Gerontology
DX: N39.0 Urinary tract infection, site not specified (principal)
CPT/HCPCS: 81003; 87086

== ENCOUNTER → 2024-07-01 08:10 | Outpatient (REF) | payer MEDICARE, OTHER, SELFPAY ==
[2024-07-01 09:18] LABS: Hematocrit 40.8 % (39.0-52.0); Hemoglobin 13.4 g/dL (13.0-18.0); Mean Corp Hgb Conc. 32.8 g/dL (33.0-37.0); Mean Corpuscular Hgb 30.6 pg (27.0-31.0); Mean Corpuscular Volume 93.2 fL (80.0-94.0); Mean Platelet Volume 9.9 fL (7.4-10.4); Platelet Count 220 10^3/uL (130-400); Red Blood Cell Count 4.38 10^6/uL (4.70-6.10); Red Cell Dist. Width 13.5 % (11.5-14.5); White Blood Cell Count 8.5 10^3/uL (4.8-10.8)
[2024-07-01 09:25] LABS: Blood Urea Nitrogen 25 mg/dl (9-20); Calcium 9.3 mg/dl (8.4-10.2); Carbon Dioxide 28 mmol/L (22-30); Chloride 103 mmol/L (98-107); Glucose 105 mg/dl (70-99); Potassium 4.5 mmol/L (3.5-5.1); Sodium 140 mmol/L (135-145); eGFR > 60.00
== END ==
LOC: SDSPAT 08:10
PROVIDERS: ATTENDING PHYSICIAN Specialist; FAMILY PHYSICIAN Family Medicine
DX: Z01.818 Encounter for other preprocedural examination (principal)
CPT/HCPCS: 36415; 80048; 85027; 93005

== ENCOUNTER → 2024-07-01 15:45 | Outpatient (REF) | payer MEDICARE, OTHER, SELFPAY | LOC: OLABLV 15:45 | PROVIDERS: ATTENDING PHYSICIAN Specialist; FAMILY PHYSICIAN Nurse Practitioner Gerontology | DX: N39.0 Urinary tract infection, site not specified (principal) | CPT/HCPCS: 87086 ==

== ENCOUNTER 2024-07-15 06:34 | Day surgery (SDC) | payer MEDICARE, OTHER, SELFPAY ==
[2024-07-01 13:39] VITALS: BMI 32.2
[2024-07-15] VITALS (8 sets, daily range): BP systolic 101–147; BP diastolic 57–71; BMI 32.2
[2024-07-15 12:24] LABS: Urine Albumin Negative (Neg - Trace); Urine Bilirubin Negative (Negative); Urine Character Clear (Clear); Urine Color Yellow; Urine Glucose Negative (Negative); Urine Ketone Negative (Negative); Urine Leukocyte Negative (Negative); Urine Nitrite Negative (Negative); Urine Occult Blood Negative (Negative); Urine Specific Gravity 1.015 (<1.030); Urine Urobilinogen Negative (Neg - 1+)
[2024-07-15] MEDS: NORMOSOL-R/PLASMALYTE-A 1000 IV (12:36)
--- NOTE | 2024-07-15 12:56 | PTCARENOTE ---
Patient is very forgetful at times. Per the daughter patient sundowns at night. Called admissions to request a private room for patient post op. Will monitor patient.
--- NOTE | 2024-07-15 18:27 | PTCARENOTE ---
CBI output verified with RN.
--- NOTE | 2024-07-15 20:04 | PTCARENOTE ---
received pt from [facility] w/[facility], approx 1615 to room 324. Pt oriented to room, VSS obtained, benign assessment completed, SCD and TEDS in place. Pt reports no pain. Bed in lowest position, call mayorga within reach, follow plan of care
[2024-07-15] MEDS: CRESTOR 20 MG PO (22:22)
[2024-07-15] MEDS: PROSCAR 5 MG PO (22:23)
[2024-07-16 07:30] VITALS: BP 138/67
[2024-07-16] MEDS: SEROQUEL 25 MG PO (09:21)
[2024-07-16] MEDS: Pyridium 200 MG PO (09:21)
[2024-07-16] MEDS: LASIX 20 MG PO (09:21)
[2024-07-16] MEDS: PROTONIX 40 MG PO (09:21)
[2024-07-16] MEDS: ARICEPT 5 MG PO (09:21)
--- NOTE | 2024-07-16 10:21 | CM ---
Addendum entered by ARTUR Harris 07/16/24 14:48:
PT evaluated patient and he is at/near baseline. Placed a call to Cinthia at [facility]. Verbally reviewed PT. She confirmed that patient can return today.
RN updated.
Addendum entered by ARTUR Harris 07/16/24 13:33:
Received return call back from Cinthia who is handling admissions today for [facility]ail[facility]. She stated that she needs a PT eval prior to daughter bringing him back. Texted attending who put in order.
# For report [phone]
Back to [facility] pending PT eval.
Original Note:
Met with patient and his daughterCathryn to obtain information for assessment. Patient's daughter stated that patient is a resident at [facility]. He needs assistance with dressing and bathing. He ambulates with supervision with his walker. He
works with PT/OT during the week. He has had VN in the past. He has been to two SNFs: [facility] and [facility]. Patient and his daughter stated that patient is at baseline. He has some confusion at
night which is normal for him.
Patient's daughter stated that patient would really like to return home when cleared. Placed a call to Shaila at [facility] however outgoing message stated that she is not in today. Placed a call to the [facility] main number and spoke with someone
named Cinthia who stated that she will review patient's information and return call to confirm that he can return back.
IMM reviewed, signed by daughter and on chart.
Plan: Case management will continue to follow and assist with discharge planning. Back to [facility].
[2024-07-16 14:04] VITALS: BP 130/60; PULSE 60
[2024-07-16 15:30] VITALS: BP 117/59
--- NOTE | 2024-07-16 15:53 | PTCARENOTE ---
Report called and given to Mami MARROQUIN. Daughter to transport pt back to [facility].
== END 2024-07-16 18:33 ==
LOC: SDS 06:34
PROVIDERS: ATTENDING PHYSICIAN Specialist
DX: C61 Malignant neoplasm of prostate (principal); N40.1 Benign prostatic hyperplasia with lower urinary tract symptoms; N32.0 Bladder-neck obstruction; N39.0 Urinary tract infection, site not specified; N39.9 Disorder of urinary system, unspecified
CPT/HCPCS: 52601; 88305; 81003; 87086; 88344; 97163

== ENCOUNTER 2024-07-24 00:46 | Inpatient (IN) | payer MEDICARE, OTHER, SELFPAY ==
[2024-07-23] VITALS (11 sets, daily range): BP systolic 91–170; BP diastolic 54–86; BMI 30.9
[2024-07-23 18:31] LABS: % Basophils 0.2 % (0-2); % Immature Granulocytes 0.6 % (0-0.5); % Lymphocytes 1.7 % (20.5-51.1); % Monocytes 0.8 % (1.7-9.3); % Neutrophils 96.7 % (42.2-75.2); Absolute Immature Granulocytes 0.1 10^3/uL (0-0.05); Absolute Lymphocytes 0.2 10^3/uL (1.2-3.4); Absolute Monocytes 0.1 10^3/uL (0.1-0.6); Absolute Neutrophils 8.6 10^3/uL (1.4-6.5); Hematocrit 33.9 % (39.0-52.0); Hemoglobin 11.4 g/dL (13.0-18.0); Mean Corp Hgb Conc. 33.6 g/dL (33.0-37.0); Mean Corpuscular Hgb 30.6 pg (27.0-31.0); Mean Corpuscular Volume 91.1 fL (80.0-94.0); Mean Platelet Volume 9.8 fL (7.4-10.4); Nucleated Red Blood Cells % 0 % (-); Platelet Count 197 10^3/uL (130-400); Red Blood Cell Count 3.72 10^6/uL (4.70-6.10); Red Cell Dist. Width 13.8 % (11.5-14.5); White Blood Cell Count 8.9 10^3/uL (4.8-10.8)
--- NOTE | 2024-07-23 18:44 | ED.GENMED ---
History of Present Illness
General
Chief Complaint: Change in Mental Status
Source: patient and family
Exam Limitations: altered mental status
Time Seen by Provider: 07/23/24 18:32
History of Present Illness
History of Present Illness:
78yoM with a history of Alzheimer's dementia, hypertension, hyperlipidemia, and BPH s/p TURP last week presenting via EMS for evaluation of altered mental status. Patient had a TURP procedure last week. Daughter states he was doing well and the
hematuria seemed to gradually resolve. Patient started with diarrhea around midnight last night. He spiked a fever of 101 this morning. Patient has been increasingly weak throughout the day and is now confused more than baseline. Patient has no
complaints at this time. Daughter states he has a history of sepsis and she is worried about this.
Past History
Past History
ED Past Medical History: Psychiatric (ANXIETY), Other (GI bleed and Uropsepsis late 2015 at [facility]) and Other (BPH, hypertension, hyperlipidemia, GERD, peptic ulcer disease)
Social History
Tobacco: Non-smoker
Alcohol: Occasional
Personal:
Living: with family
Employment: Retired
Family History
Family History: Other (Alzheimer's)
Phy Exam
General Physical Exam
General Presentation: no apparent distress
General Skin: warm and dry
General Habitus: elderly
General Mental: alert
ENT Exam
ENT Exam: normocephalic
Cardiovascular Exam
Cardiovascular Exam: regular rate/rhythm
Pulmonary Exam
Pulmonary Exam: lungs clear, no respiratory distress, no rales, no crackles and no rhonchi
Gastrointestinal Exam
Gastrointestinal Exam: non tender, soft and non distended
Neurological Exam
Neurological Exam: other (Keeps eyes closed throughout exam. Oriented to person and place. Not oriented to time. )
Skin Exam
Skin Exam: normal color and warm/dry
Sepsis
Sepsis Screening
Sepsis Assessment: Sepsis
Sepsis Screen
Sepsis Screen: Sepsis
Date: 07/23/24
Time: 22:30
Course
Orders/Labs/Results
Orders:
Orders
07/23/24 18:23
COVID-19 Antigen Urgent
Source: Nasal Swab
Complete Blood Count/With Diff Urgent
Comprehensive Metabolic Panel Urgent
Lactic Acid Urgent
Influenza A+B Rapid Molecular Urgent
JORGE Source: Nasal Swab
Specimen Description:
07/23/24 18:43
CT Chest/abd/pel W Iv Cont Urgent
Comment:
Reason For Exam: Sepsis
CT Head W/o Iv Contrast Urgent
Comment:
Reason For Exam: AMS
Urinalysis Reflex To Culture Urgent
Date Specimen was Collected: 07/23/24
Time Specimen was Collected: 18:26
Urine Microscopic Reflex Cult Urgent
Urine Culture Urgent
JORGE Source: U
Specimen Description:
Date Specimen was Collected: 07/23/24
Time Specimen was Collected: 18:26
07/23/24 18:45
CDIFF [C difficile Antigen & Toxins] Urgent
JORGE Source: Feces/Stool
Specimen Description:
Norovirus by PCR Urgent
JORGE Source: Feces/Stool
Specimen Description:
Stool Culture Urgent
JORGE Source: Feces/Stool
Specimen Description:
0.9% Sodium Chloride 500 ml [Nss] 500 ml IV BOLUS
Acetaminophen [Tylenol] 1,000 mg PO NOW STA
07/23/24 19:06
Blood Culture Q30M
JORGE Source: Blood/Venous
Specimen Description:
Blood Culture Q30M
JORGE Source: Blood/Venous
Specimen Description:
07/23/24 19:11
CefTRIAXone [Rocephin] 2,000 mg IV NOW STA
07/23/24 19:32
Sterile Water [Sterile Water For Injection] 20 ml .ROUTE .[facility]
07/23/24 22:05
0.9% Sodium Chloride 500 ml [Nss] 500 ml IV BOLUS
Abnormal Lab Results
07/23/24 07/23/24
18:23 18:43
RBC 3.72 L 10^6/uL
(4.70-6.10)
Hgb 11.4 L g/dL
(13.0-18.0)
Hct 33.9 L %
(39.0-52.0)
Abs Immat Gran (auto) 0.1 H 10^3/uL
(0-0.05)
Absolute Neuts (auto) 8.6 H 10^3/uL
(1.4-6.5)
Absolute Lymphs (auto) 0.2 L 10^3/uL
(1.2-3.4)
Immature Gran % 0.6 H %
(0-0.5)
Neutrophils % 96.7 H %
(42.2-75.2)
Lymphocytes % 1.7 L %
(20.5-51.1)
Monocytes % 0.8 L %
(1.7-9.3)
Carbon Dioxide 19 L mmol/L
(22-30)
BUN 27 H mg/dl
(9-20)
Glucose 179 H mg/dl
(70-99)
Calcium 7.9 L mg/dl
(8.4-10.2)
Urine Ketones 2+ A
(Negative)
Ur Occult Blood Reflex 4+ A
(Negative)
Leukocyte Esterase Rfl 3+ A
(Negative)
Urine RBC 70-80 A /HPF
(0-2)
Urine WBC (Reflex) 11-15 A /HPF
(0-5)
Urine Bacteria (Reflex) Many A
(Negative)
Urine Albumin (Reflex) 3+ A
(Neg - Trace)
07/23/24 18:23
07/23/24 18:23
Vital Signs
Initial and Last Documented VS:
Initial Vital Signs
Pulse Resp BP Pulse Ox
99 23 170/86 90
07/23/24 18:09 07/23/24 18:09 07/23/24 18:09 07/23/24 18:09
Last Documented Vital Signs
Temp Pulse Resp BP Pulse Ox
102.7 F H 87 22 94/57 93
07/23/24 20:29 07/23/24 22:15 07/23/24 21:45 07/23/24 22:03 07/23/24 22:15
MDM/Problems Addressed
Differential Diagnosis Includes:
78yoM here with AMS. Started with diarrhea and fever last night. Recent TURP procedure last week. Temperature 102.8 on arrival. Oxygen saturation 90%. Patient keeps eyes closed throughout majority of exam and appears fatigued. He is A&Ox2. Unable to
state the month or year. Differential diagnosis includes but is not limited to: sepsis, UTI, viral illness, intra-abdominal infection, pneumonia
Initial ED plan: Check septic workup including blood cultures, lactate, COVID/flu swab, UA. Will obtain CT head and CT CAP to evaluate for source of infection. Tylenol and IV fluid bolus.
*Critical Care Note
Total Time (30-74mins, 75-104mins- exclusive of procedures): Not Applicable
Update Note
Update Note:
UA with 3+ leukocytes and many bacteria. White count and lactate normal. COVID/flu testing negative. CT head negative for acute findings. No signs of infection on CT CAP. IV Rocephin ordered. Patient more alert on reassessment. He was admitted
for further management.
ED Attending Note
-
Portions of this chart may have been created with voice recognition software.� Occasional wrong word or��sound alike� substitutions may have occurred due to the inherent limitations of voice recognition software.
Discharge Plan
Departure
Patient Disposition: Admit
Date of Disposition: 07/23/24
Time of Disposition: 21:49
Presentation/result/management discussed w/ accepting /: Hospitalist
Discharge Problem:
Urinary tract infection, Sepsis, Altered mental status
Prescriptions:
No Action
fluoxetine 40 mg Capsule
40 mg PO HS
acetaminophen [Tylenol Extra Strength] 500 mg Tablet
500 mg PO DAILYPRN PRN (Reason: mild pain)
finasteride 5 mg Tablet
5 mg PO HS
cholecalciferol (vitamin D3) 125 mcg (5,000 unit) Tablet
125 mcg PO HS
polyethylene glycol 3350 [HealthyLax] 17 gram Powder In Packet
17 g PO DAILYPRN PRN (Reason: constipation) Qty: 0 0RF
sennosides-docusate sodium [Stool Softener-Stimulant Laxat] 8.6-50 mg Tablet
1 tab PO BIDPRN PRN (Reason: constipation) Qty: 0 0RF
quetiapine [Seroquel] 25 mg Tablet
25 mg PO DAILY
acetaminophen 325 mg Tablet
650 mg PO BIDPRN PRN (Reason: mild pain)
donepezil [Aricept] 5 mg Tablet
5 mg PO DAILY
omeprazole 40 mg Capsule,Delayed Release(Dr/Ec)
40 mg PO DAILY
furosemide [Lasix] 20 mg Tablet
20 mg PO DAILY
rosuvastatin 20 mg Tablet
20 mg PO HS
Certa Plus 18-0.4-250 mg-mg-mcg Tablet
1 tab PO DAILY
loperamide 2 mg Tablet
2 mg PO TIDPRN PRN (Reason: diarrhea)
Rx Instructions:
take 4mg on the first loose stool, then 2mg thereafter each loose stool
Referrals:
Dory Starr DO [Family Provider] -
Interventions
Interventions:
*Risk Screen - Suicide Last Done: 07/23/24 18:15
*General Assessment Last Done: 07/23/24 18:15
*Neglect/Abuse Screening Last Done: 07/23/24 18:15
*ED COVID-19 Vaccine History Last Done: 07/23/24 18:16
ED- Neurological Assessment Last Done: 07/23/24 18:15
ED Swallowing Screen Last Done: 07/23/24 18:15
Discharge Date and Time
Print Language: MOHAWK
[2024-07-23 18:47] LABS: COVID-19 Antigen Negative (Negative)
[2024-07-23 18:48] LABS: Urine Albumin 3+ (Neg - Trace); Urine Bilirubin Negative (Negative); Urine Character Slightly Cloudy (Clear); Urine Color Yellow; Urine Glucose Negative (Negative); Urine Ketone 2+ (Negative); Urine Leukocyte 3+ (Negative); Urine Nitrite Negative (Negative); Urine Specific Gravity 1.025 (<1.030); Urine Urobilinogen Negative (Neg - 1+)
[2024-07-23 18:49] LABS: Lactic Acid 1.9 mmol/L (0.7-2.0)
[2024-07-23 18:50] LABS: ALT (SGPT) 22 U/L (0-50); AST (SGOT) 21 U/L (17-59); Alkaline Phosphatase 79 U/L (38-126); Blood Urea Nitrogen 27 mg/dl (9-20); Calcium 7.9 mg/dl (8.4-10.2); Carbon Dioxide 19 mmol/L (22-30); Chloride 103 mmol/L (98-107); Glucose 179 mg/dl (70-99); Potassium 3.7 mmol/L (3.5-5.1); Sodium 135 mmol/L (135-145); Total Protein 6.3 g/dl (6.3-8.2)
[2024-07-23 18:53] LABS: eGFR > 60.00
[2024-07-23 18:54] LABS: Urine Occult Blood 4+ (Negative); Urine Squamous Cell 0-2 /LPF (Few)
[2024-07-23 18:55] LABS: Urine Amorphous Seen
[2024-07-23 18:56] LABS: Urine Bacteria Many (Negative); Urine Red Blood Cell 70-80 /HPF (0-2)
[2024-07-23] MEDS: TYLENOL 1000 MG PO (18:59)
[2024-07-23] MEDS: NSS 500 IV ×2 (19:05→22:24)
[2024-07-23] MEDS: ROCEPHIN 2000 MG IV (19:34)
[2024-07-24] VITALS (24 sets, daily range): BP systolic 91–128; BP diastolic 50–78
--- NOTE | 2024-07-24 00:12 | HPS.HSE ---
Family Physician
-
Family Physician: Dory Starr
Chief Complaint
-
Fever, altered mental status
History of Present Illness
This is a 78-year-old with past medical history of BPH, dementia, hyperlipidemia, GERD, prior GI bleed and history of prior urinary tract infection with sepsis who presents to the emergency department with fevers and altered mental status.
Patient had a recent TURP 1 week ago. Status post procedure he had hematuria but appears to be clearing and denies any difficulty with urination. He had 1 episode of diarrhea yesterday and then developed a fever. He was given Tylenol with
defervescence. However there was recurrence of the fever and he developed rigors and chills and had to be transferred to the emergency department. Patient unable to provide much history.
He had prior history of UTIs for which the TURP was performed. Has had UTI with sepsis in the past and has grown Enterococcus that was sensitive to ampicillin.
In the emergency department he had a temp of 102, blood pressure of 95/55 pulse of 87 satting at mid 95% on 2 L. Influenza and COVID were negative. His UA was positive. CBC was mostly unremarkable. Electrolytes BUN/creatinine were unremarkable.
CT of the chest abdomen pelvis was notable for mild colon distention without any evidence of colonic wall thickening, there was dependent prior, opacity with inferior lower lungs right greater than left most likely atelectasis, there was incidental
finding of mildly dilated aortic root, ascending aorta at the level of the right main pulmonary artery is within the normal range. He had enlargement of the main pulmonary artery suggesting pulmonary hypertension. No mention was made of
abnormalities of the renal collecting system or bladder.
Medical History
Past Medical History
Past Medical History: Reports Dementia, GERD, Hypercholesterolemia and Other (BPH)
Past Surgical History: Reports Urological (TURB)
Social History
Tobacco: Non-smoker
Alcohol: None
Drug: None
Personal: Single
Living: Assisted Living
Employment: Retired
Family History
Family History: Not pertinent
Allergies / Home Medications
Allergies reflects when Allergies were last updated in [employer].
Home Medications with original date entered in [employer]
Allergy/Medication List:
Allergies
Allergy/AdvReac Type Severity Reaction Status Date / Time
No Known Allergies Allergy Verified 07/23/24 18:18
Home Medications
acetaminophen 500 mg tablet (Tylenol Extra Strength) 500 mg PO DAILYPRN PRN mild pain 08/29/23
cholecalciferol (vitamin D3) 125 mcg (5,000 unit) tablet 125 mcg PO HS Supplement 08/29/23
finasteride 5 mg tablet 5 mg PO HS prostate 08/29/23
fluoxetine 40 mg capsule 40 mg PO Mental Health 08/29/23
polyethylene glycol 3350 17 gram oral powder packet (HealthyLax) 17 g PO DAILYPRN PRN constipation #0 ea 11/05/23
sennosides 8.6 mg-docusate sodium 50 mg tablet (Stool Softener-Stimulant Laxative) 1 tab PO BIDPRN PRN constipation #0 tabs 11/05/23
acetaminophen 325 mg tablet 650 mg PO BIDPRN PRN mild pain 07/08/24
donepezil 5 mg tablet (Aricept) 5 mg PO DAILY 07/08/24
furosemide 20 mg tablet (Lasix) 20 mg PO DAILY 07/08/24
svkdgxoh-xrqw-aqh-FA-lutein 18 mg-0.4 mg-250 mcg tablet (Certa Plus) 1 tab PO DAILY 07/08/24
omeprazole 40 mg capsule,delayed release 40 mg PO DAILY 07/08/24
quetiapine 25 mg tablet (Seroquel) 25 mg PO DAILY 07/08/24
rosuvastatin 20 mg tablet 20 mg PO HS 07/08/24
loperamide 2 mg tablet 2 mg PO TIDPRN PRN diarrhea 07/23/24
Review of Systems
-
Unable to obtain full review of systems at this time due to: Dementia
History Source: Family
Constitutional: Reports Fever
EENT: Reports No Symptoms
Respiratory: Reports No Symptoms
Cardiac: Reports No Symptoms
Abdomen/GI: Reports Diarrhea
: Reports Dark Urine
Musculoskeletal: Reports No Symptoms
Skin: Reports No Symptoms
Neurological: Reports No Symptoms
Endocrine: Reports No Symptoms
Hematologic/Lymphatic: Reports No Symptoms
Psych: Reports No Symptoms
Physical Exam
Vital Signs
Vital Signs
Temp Pulse Resp BP Pulse Ox
102.7 F H 87 22 100/60 95
07/23/24 20:29 07/23/24 22:45 07/23/24 21:45 07/23/24 22:33 07/23/24 22:45
Physical Exam
General: Well Developed, No Apparent Distress and Comfortable
HEENT: NormoCephalic, Anicteric, Moist mucous membranes and Atraumatic
Respiratory: Clear
Cardiac: S1/S2 and Regular Rhythm
Breast: Deferred by me
GI: Soft, Non Tender, Non Distended and Normal Bowel Sounds
Rectal: Deferred by Provider
Genito-urinary: Deferred by me
Musculoskeletal: No Clubbing, No Cyanosis and No Edema
Skin: Warm
Neuro: Alert and Oriented (to person and place)
Hematologic/Lymphatic: Other
Psych: Calm
Laboratory Results
-
07/23/24 18:23
07/23/24 18:23
Laboratory Results
Lactic Acid 1.9 mmol/L (0.7-2.0) 07/23/24 18:23
Total Bilirubin 1.0 mg/dl (0.2-1.3) 07/23/24 18:23
AST 21 U/L (17-59) 07/23/24 18:23
ALT 22 U/L (0-50) 07/23/24 18:23
Alkaline Phosphatase 79 U/L (38-126) 07/23/24 18:23
Data Reviewed
-
CT Scan: Report Reviewed by me
Lab Data: Labs Reviewed by me
Old Records: Reviewed
Impression/Plan
-
IMPRESSION:
78-year-old with history of dementia presenting with fever and altered mental status. He is recently status post TURP. UA is positive. CT scan shows no acute or pulmonary, intra-abdominal, pelvic abnormalities. Negative negative for COVID and
flu.
PLAN:
Fever - Suspect secondary to UTI. h/o uti with sensitive ecoli and also with E feacalis sensitive to ampicillin
- admit to telemetry
- s/p 1 L NS, will give an additional 1 L bolus
- blood cultures, urine cultures
- IV Zosyn for now (cover ecoli and ampicillin sensitive E. Feacalis)
- hold off additional iv fluids
- ? diarrhea, no diarrhea in ED, check stool studies if diarrhea
- check procalcitonin
AMS - Improved with fluids in ED. Suspect encephalopathy due to infection in patient with dementia
- treatment as above
BPH
- bladder scans for now, urology if retaining
- continue finasteride
DVT PPX lovenox sq
Code status - full code
[2024-07-24] MEDS: ZOSYN 50 IV ×4 (00:45→20:10)
[2024-07-24] MEDS: NSS 500 IV (00:46)
[2024-07-24] MEDS: SEROQUEL 25 MG PO ×3 (00:46→22:49)
[2024-07-24 05:36] LABS: Hematocrit 29.1 % (39.0-52.0); Mean Corp Hgb Conc. 34.4 g/dL (33.0-37.0); Mean Corpuscular Hgb 31.4 pg (27.0-31.0); Mean Corpuscular Volume 91.5 fL (80.0-94.0); Mean Platelet Volume 10.2 fL (7.4-10.4); Platelet Count 170 10^3/uL (130-400); Red Blood Cell Count 3.18 10^6/uL (4.70-6.10); Red Cell Dist. Width 13.9 % (11.5-14.5)
[2024-07-24 06:30] LABS: Procalcitonin 4.46 ng/ml (0.0-0.25)
[2024-07-24 06:35] LABS: Blood Urea Nitrogen 24 mg/dl (9-20); Calcium 8.1 mg/dl (8.4-10.2); Carbon Dioxide 20 mmol/L (22-30); Chloride 105 mmol/L (98-107); Estimated Creatinine Clearance 77 ml/min; Glucose 121 mg/dl (70-99); Potassium 3.8 mmol/L (3.5-5.1); Sodium 134 mmol/L (135-145); eGFR > 60.00
[2024-07-24] MEDS: PROTONIX 40 MG PO (08:03)
[2024-07-24] MEDS: ARICEPT 5 MG PO (08:03)
[2024-07-24] MEDS: LASIX 20 MG PO (08:04)
--- NOTE | 2024-07-24 15:03 | W.PN.HOSP.TC ---
Today's Communication/Plan
-
Monitor vital signs see plan
Continue with fluids
Continue antibiotics
Follow fever curve
Follow blood culture, urine culture
Discussed with daughter at bedside
Nonbillable note
Assessment / Plan
Assessment / Plan
General: Well Developed, No Apparent Distress and Comfortable
HEENT: NormoCephalic, Anicteric, Moist mucous membranes and Atraumatic
Respiratory: Clear
Cardiac: S1/S2 and Regular Rhythm
GI: Soft, Non Tender, Non Distended and Normal Bowel Sounds
Musculoskeletal: No Edema
Neuro: Alert and Oriented (to person and place)
Psych: Calm
Sepsis secondary to urinary tract infection
History of E faecalis UTI
Continue with fluids
Follow-up blood culture, urine culture
Continue with antibiotics
Pro-Mohinder elevated
Follow fever curve
Questionable opacity on the CT chest which could be PNA. monitor. on abx
Reported diarrhea started 07/22
Stool studies positive for norovirus
Symptomatic treatment
Change in mental status likely encephalopathy with baseline dementia secondary to UTI
Monitor
Pulmonary HTN
Hyponatremia
Monitor
History of BPH with recent TURP
Urology evaluation
Continue with Proscar
Alzheimer's dementia
Continue with home meds
Monitor for behavioral changes
Anxiety/depression
Continue fluoxetine
Hyperlipidemia
GERD
Chronic ambulatory dysfunction
DVTppx
lovenox
Full code; daughter is going to bring living will and will see if changed
Anticipated Discharge: > 48 hours
Subjective/Interval History
-
Date of Service: July 24, 2024
denies pain
Objective Data
-
Labs:
Laboratory Results
07/24/24
05:11
WBC 10.0
Hgb 10.0 L
Hct 29.1 L
Plt Count 170
Sodium 134 L
Potassium 3.8
Chloride 105
Carbon Dioxide 20 L
BUN 24 H
Creatinine 1.0
Glucose 121 H
Calcium 8.1 L
Vital Signs:
Vital Signs
Temp Pulse Resp BP Pulse Ox
97.7 F 56 17 104/61 96
07/24/24 08:26 07/24/24 13:15 07/24/24 13:15 07/24/24 13:00 07/24/24 12:45
--- NOTE | 2024-07-24 16:17 | CONS.URO ---
Medical History
History of Present Illness
patient underwent TURP on 07/15/2024 for recurrent UTIs -- PRE-OP URINE CULTURE WAS NEGATIVE
1 episode of diarrhea yesterday and then developed a fever then developed rigors and chills and had to be transferred to the emergency department.
Past Medical History
Past Medical History: Other (Dementia, GERD, Hypercholesterolemia, REcurrent UTIs)
Past Surgical History: Urological (TURP 07/15/2024)
Allergies/Home Medications
Allergies
Allergy/AdvReac Type Severity Reaction Status Date / Time
No Known Allergies Allergy Verified 07/23/24 18:18
Home Medications
�Medication �Instructions �Recorded �Confirmed �Type
acetaminophen 500 mg tablet 500 mg PO DAILYPRN PRN mild pain 08/29/23 07/23/24 History
(Tylenol Extra Strength)
cholecalciferol (vitamin D3) 125 125 mcg PO HS Supplement 08/29/23 07/23/24 History
mcg (5,000 unit) tablet
finasteride 5 mg tablet 5 mg PO HS prostate 08/29/23 07/23/24 History
fluoxetine 40 mg capsule 40 mg PO HS Mental Health 08/29/23 07/23/24 History
polyethylene glycol 3350 17 gram 17 g PO DAILYPRN PRN constipation 11/05/23 07/23/24 Rx
oral powder packet (HealthyLax) #0 ea
sennosides 8.6 mg-docusate sodium 1 tab PO BIDPRN PRN constipation 11/05/23 07/23/24 Rx
50 mg tablet (Stool #0 tabs
Softener-Stimulant Laxative)
acetaminophen 325 mg tablet 650 mg PO BIDPRN PRN mild pain 07/08/24 07/23/24 History
donepezil 5 mg tablet (Aricept) 5 mg PO DAILY 07/08/24 07/23/24 History
furosemide 20 mg tablet (Lasix) 20 mg PO DAILY 07/08/24 07/23/24 History
zzzhwwlf-bark-thn-FA-lutein 18 1 tab PO DAILY 07/08/24 07/23/24 History
mg-0.4 mg-250 mcg tablet (Certa
Plus)
omeprazole 40 mg capsule,delayed 40 mg PO DAILY 07/08/24 07/23/24 History
release
quetiapine 25 mg tablet (Seroquel) 25 mg PO DAILY 07/08/24 07/23/24 History
rosuvastatin 20 mg tablet 20 mg PO HS 07/08/24 07/23/24 History
loperamide 2 mg tablet 2 mg PO TIDPRN PRN diarrhea 07/23/24 07/23/24 History
Physical Exam
Vital Signs
Vital Signs
Temp Pulse Resp BP Pulse Ox
97.7 F 56 17 104/61 96
07/24/24 08:26 07/24/24 13:15 07/24/24 13:15 07/24/24 13:00 07/24/24 12:45
Lab / Testing Results
Laboratory Results
07/24/24 05:11
07/24/24 05:11
Physical Exam
adult male calm in be in ED
General: No Apparent Distress
Skin: Warm
Neuro: Awake and Alert
Psych: Calm
Assessment / Plan
-
Acute Norovirus Infection
9 days s/p TURP -- the UA is reflective of this but NOT INDICATIVE OF A BACTERIAL UTI
Rec: treat Acute Norovirus
Data Reviewed
-
CT Scan: Image personally visualized and interpreted
Lab Data: Labs Reviewed
Old Records: Reviewed
[2024-07-24] MEDS: LOVENOX 40 MG SC (18:29)
--- NOTE | 2024-07-24 21:50 | PTCARENOTE ---
Patient with positive BC. Notified EVENT MANAGER Salo Palomino. Pt already on IV abx. Will continue to monitor.
[2024-07-24] MEDS: PROSCAR 5 MG PO (22:49)
[2024-07-24] MEDS: CRESTOR 20 MG PO (22:49)
[2024-07-24] MEDS: PROZAC 40 MG PO (22:49)
[2024-07-24] MEDS: VITAMIN D3 (cholecalciferol) 125 MCG PO (22:49)
[2024-07-25] VITALS (13 sets, daily range): BP systolic 101–138; BP diastolic 60–78; PULSE 64
[2024-07-25] MEDS: ZOSYN 50 IV ×4 (02:46→20:08)
[2024-07-25] MEDS: PROTONIX 40 MG PO (07:24)
[2024-07-25] MEDS: LASIX 20 MG PO (07:24)
[2024-07-25] MEDS: ARICEPT 5 MG PO (07:24)
[2024-07-25 07:35] LABS: % Basophils 0.2 % (0-2); % Eosinophils 3.1 % (0-6); % Immature Granulocytes 0.4 % (0-0.5); % Lymphocytes 19.1 % (20.5-51.1); % Monocytes 8.3 % (1.7-9.3); % Neutrophils 68.9 % (42.2-75.2); Absolute Eosinophils 0.3 10^3/uL (0-0.7); Absolute Lymphocytes 1.5 10^3/uL (1.2-3.4); Absolute Monocytes 0.7 10^3/uL (0.1-0.6); Absolute Neutrophils 5.6 10^3/uL (1.4-6.5); Hematocrit 34.9 % (39.0-52.0); Hemoglobin 11.4 g/dL (13.0-18.0); Mean Corp Hgb Conc. 32.7 g/dL (33.0-37.0); Mean Corpuscular Hgb 30.5 pg (27.0-31.0); Mean Corpuscular Volume 93.3 fL (80.0-94.0); Mean Platelet Volume 9.8 fL (7.4-10.4); Nucleated Red Blood Cells % 0 % (-); Platelet Count 214 10^3/uL (130-400); Red Blood Cell Count 3.74 10^6/uL (4.70-6.10); Red Cell Dist. Width 14.3 % (11.5-14.5); White Blood Cell Count 8.1 10^3/uL (4.8-10.8)
[2024-07-25 07:41] LABS: Blood Urea Nitrogen 18 mg/dl (9-20); Calcium 8.2 mg/dl (8.4-10.2); Carbon Dioxide 22 mmol/L (22-30); Chloride 107 mmol/L (98-107); Estimated Creatinine Clearance 70 ml/min; Glucose 101 mg/dl (70-99); Potassium 3.9 mmol/L (3.5-5.1); Sodium 140 mmol/L (135-145); eGFR > 60.00
--- NOTE | 2024-07-25 11:00 | W.PN.URO.CBU ---
Today's Communication / Plan
-
will sign off
Assessment / Plan
-
Norovirus enteritis
with urine cx demonstrating 'no growth', the diagnosis of urosepsis is unsupported
Diagnosis
-
Date of Service: July 25, 2024
-
Patient Diagnosis:
Norovirus enteritis
Objective
-
Vital Signs
Temp Pulse Resp BP Pulse Ox
97 F 64 14 132/78 97
07/25/24 07:27 07/25/24 07:24 07/25/24 03:43 07/25/24 07:24 07/25/24 03:43
Intake and Output
07/24/24 07/25/24 07/26/24
06:59 06:59 06:59
Intake Total 340 / 340 50 / 50
Output Total 250 / 250
Balance 90 / 90 50 / 50
Intake:
Oral fluids 240 / 240
IV fluids (Total) 100 / 100
IV piggybacks 50 / 50
Output:
Urine, Voided 250 / 250
Other:
How many times incontinent 3 2
SATURATED amount urine
Laboratory Results
07/25/24 07:13
07/25/24 07:13
urine cx: no growth
Physical Exam
-
General - well developed, well nourished, no acute distress
Chest - clear bilaterally
Abdomen - soft, non-tender, positive bowel sounds, no CVAT, no incisional pain or distention
Genitalia - normal
Rectal - normal
Skin - warm & dry with no rash
Neuro - AOx3, no motor deficits
Extremities - no clubbing, no cyanosis, no edema
Incision - clean, dry
Dressing - clean, dry, intact
--- NOTE | 2024-07-25 11:04 | W.PN.URO.CBU ---
Today's Communication / Plan
-
will sign off
Assessment / Plan
-
Norovirus enteritis
with urine cx demonstrating 'no growth', the diagnosis of urosepsis is unsupported
Diagnosis
-
Date of Service: July 25, 2024
-
Patient Diagnosis:
Norovirus enteritis
Objective
-
Vital Signs
Temp Pulse Resp BP Pulse Ox
97 F 64 14 132/78 97
07/25/24 07:27 07/25/24 07:24 07/25/24 03:43 07/25/24 07:24 07/25/24 03:43
Intake and Output
07/24/24 07/25/24 07/26/24
06:59 06:59 06:59
Intake Total 340 / 340 50 / 50
Output Total 250 / 250
Balance 90 / 90 50 / 50
Intake:
Oral fluids 240 / 240
IV fluids (Total) 100 / 100
IV piggybacks 50 / 50
Output:
Urine, Voided 250 / 250
Other:
How many times incontinent 3 2
SATURATED amount urine
Laboratory Results
07/25/24 07:13
07/25/24 07:13
Physical Exam
-
General - well developed, well nourished, no acute distress
Chest - clear bilaterally
Abdomen - soft, non-tender, positive bowel sounds, no CVAT, no incisional pain or distention
Genitalia - normal
Rectal - normal
Skin - warm & dry with no rash
Neuro - AOx3, no motor deficits
Extremities - no clubbing, no cyanosis, no edema
Incision - clean, dry
Dressing - clean, dry, intact
--- NOTE | 2024-07-25 12:46 | CM ---
[facility] with nursing [facility]
Pt with dementia dx but AxO 3x-4 x per staff
Pt is independent with use of a WW for ambulation and transfers
Staff provide supervision only for bathing
Pt current with PT, provider name known
No WOC needs, good skin integrity
PCP- Zunilda Starr
Rx- [facility]
requetsed at [facility] level pt can return to PCU at
Staff deferred until Mon once director return to office
PT/OT following with SNF recs
Call with fiordalizar/Cathryn
Declined referral to [facility] at this time
Would like to see how pt progresses
Discharge Disposition- return to [place] personal care unit vs [facility]
--- NOTE | 2024-07-25 13:01 | W.PN.HOSP.TC ---
Today's Communication/Plan
-
Monitor vital signs see plan
PT/OT
Follow fever curve
Continue with antibiotics
Discussed with daughter at bedside
Follow blood culture
Assessment / Plan
Assessment / Plan
General: Well Developed, No Apparent Distress and Comfortable
HEENT: NormoCephalic, Anicteric, Moist mucous membranes and Atraumatic
Respiratory: Clear
Cardiac: S1/S2 and Regular Rhythm
GI: Soft, Non Tender, Non Distended and Normal Bowel Sounds
Musculoskeletal: No Edema
Neuro: Alert and Oriented (to person and place)
Psych: Calm
Sepsis secondary to urinary tract infection and possible PNA
History of E faecalis UTI
Continue with fluids
Follow-up blood culture, urine culture no growth apparently but given elevated procal suggestive of bacterial sepsis will treat with abx that will cover PNA and UTI
Continue with antibiotics
Pro-Mohinder elevated
Follow fever curve
Questionable opacity on the CT chest which could be PNA. monitor. on abx
bcx 1 bottle growing gram-positive cocci in clusters, could be contaminant. Continue to monitor for further speciation
Reported diarrhea started 07/22
Stool studies positive for norovirus
Symptomatic treatment
Change in mental status likely encephalopathy with baseline dementia secondary to UTI
Monitor
improving
Pulmonary HTN
Hyponatremia
Monitor
History of BPH with recent TURP
Urology following
Continue with Proscar
Alzheimer's dementia
Continue with home meds
Monitor for behavioral changes
Anxiety/depression
Continue fluoxetine
Hyperlipidemia
GERD
Chronic ambulatory dysfunction
DVTppx
lovenox
Full code
PT/OT rec SNF
I spent a total of 51 minutes with the patient or on the floor. More than 50% of this time involved counseling and coordination of care.
Anticipated Discharge: 24 - 48 hours
Subjective/Interval History
-
Date of Service: July 25, 2024
denies pain
Objective Data
-
Labs:
Laboratory Results
07/25/24
07:13
WBC 8.1
Hgb 11.4 L
Hct 34.9 L
Plt Count 214 D
Sodium 140
Potassium 3.9
Chloride 107
Carbon Dioxide 22
BUN 18
Creatinine 1.1
Glucose 101 H
Calcium 8.2 L
Vital Signs:
Vital Signs
Temp Pulse Resp BP Pulse Ox
97 F 63 14 128/73 98
07/25/24 12:19 07/25/24 12:11 07/25/24 03:43 07/25/24 12:09 07/25/24 09:00
I&O
07/24/24 07/25/24 07/26/24
06:59 06:59 06:59
Intake Total 340 / 340 50 / 50
Output Total 250 / 250
Balance 90 / 90 50 / 50
[2024-07-25] MEDS: LOVENOX 40 MG SC (18:24)
[2024-07-25] MEDS: CRESTOR 20 MG PO (21:01)
[2024-07-25] MEDS: PROSCAR 5 MG PO (21:01)
[2024-07-25] MEDS: PROZAC 40 MG PO (21:01)
[2024-07-25] MEDS: SEROQUEL 25 MG PO (21:02)
[2024-07-25] MEDS: VITAMIN D3 (cholecalciferol) 125 MCG PO (21:02)
[2024-07-26] VITALS (7 sets, daily range): BP systolic 104–151; BP diastolic 63–90
[2024-07-26] MEDS: ZOSYN 50 IV ×4 (01:58→20:19)
[2024-07-26 06:37] LABS: % Basophils 0.3 % (0-2); % Eosinophils 2.3 % (0-6); % Immature Granulocytes 0.3 % (0-0.5); % Lymphocytes 19.4 % (20.5-51.1); % Monocytes 6.2 % (1.7-9.3); % Neutrophils 71.5 % (42.2-75.2); Absolute Eosinophils 0.2 10^3/uL (0-0.7); Absolute Lymphocytes 1.5 10^3/uL (1.2-3.4); Absolute Monocytes 0.5 10^3/uL (0.1-0.6); Absolute Neutrophils 5.5 10^3/uL (1.4-6.5); Hematocrit 33.2 % (39.0-52.0); Hemoglobin 11.2 g/dL (13.0-18.0); Mean Corp Hgb Conc. 33.7 g/dL (33.0-37.0); Mean Corpuscular Hgb 31.2 pg (27.0-31.0); Mean Corpuscular Volume 92.5 fL (80.0-94.0); Mean Platelet Volume 9.9 fL (7.4-10.4); Nucleated Red Blood Cells % 0 % (-); Platelet Count 205 10^3/uL (130-400); Red Blood Cell Count 3.59 10^6/uL (4.70-6.10); Red Cell Dist. Width 13.8 % (11.5-14.5); White Blood Cell Count 7.7 10^3/uL (4.8-10.8)
[2024-07-26 06:58] LABS: Blood Urea Nitrogen 14 mg/dl (9-20); Calcium 8.2 mg/dl (8.4-10.2); Carbon Dioxide 25 mmol/L (22-30); Chloride 106 mmol/L (98-107); Estimated Creatinine Clearance 70 ml/min; Glucose 104 mg/dl (70-99); Potassium 3.5 mmol/L (3.5-5.1); Sodium 141 mmol/L (135-145); eGFR > 60.00
[2024-07-26 07:17] LABS: Procalcitonin 1.42 ng/ml (0.0-0.25)
[2024-07-26] MEDS: LASIX 20 MG PO (10:38)
[2024-07-26] MEDS: PROTONIX 40 MG PO (10:38)
[2024-07-26] MEDS: ARICEPT 5 MG PO (10:38)
--- NOTE | 2024-07-26 13:09 | W.PN.HOSP.TC ---
Today's Communication/Plan
-
Monitor vital signs see plan
Follow fever curve
hopeful transition to p.o. antibiotics soon
Symptomatic care for norovirus
PT/OT recommended SNF, casework specialist aware
Follow blood culture
Discharge planning
Assessment / Plan
Assessment / Plan
General: Well Developed, No Apparent Distress and Comfortable
HEENT: NormoCephalic, Anicteric, Moist mucous membranes and Atraumatic
Respiratory: Clear
Cardiac: S1/S2 and Regular Rhythm
GI: Soft, Non Tender, Non Distended and Normal Bowel Sounds
Musculoskeletal: No Edema
Neuro: Alert and Oriented (to person and place)
Psych: Calm
Sepsis secondary to urinary tract infection and possible PNA
History of E faecalis UTI
Continue with fluids
Follow-up blood culture, urine culture no growth apparently but given elevated procal suggestive of bacterial sepsis will treat with abx that will cover PNA and UTI
Continue with antibiotics; likely transition to augmentin if continues to improve
Pro-Mohinder elevated
Follow fever curve
Questionable opacity on the CT chest which could be PNA. monitor. on abx
bcx 1 bottle growing gram-positive cocci in clusters, could be contaminant. Continue to monitor for further speciation
Reported diarrhea started 07/22
Stool studies positive for norovirus
Symptomatic treatment
Change in mental status likely encephalopathy with baseline dementia secondary to UTI
Monitor
improving
Pulmonary HTN
Hyponatremia
Monitor
History of BPH with recent TURP
Urology following
Continue with Proscar
Alzheimer's dementia
Continue with home meds
Monitor for behavioral changes
Anxiety/depression
Continue fluoxetine
Hyperlipidemia
GERD
Chronic ambulatory dysfunction
DVTppx
lovenox
Full code
PT/OT rec SNF; discussed with patient and daughter. Will likely go to SNF if PT continues to recommend that
I spent a total of 52 minutes with the patient or on the floor. More than 50% of this time involved counseling and coordination of care.
Anticipated Discharge: Within 24 hours
Subjective/Interval History
-
Date of Service: July 26, 2024
Denies pain
Objective Data
-
Labs:
Laboratory Results
07/26/24
06:29
WBC 7.7
Hgb 11.2 L
Hct 33.2 L
Plt Count 205
Sodium 141
Potassium 3.5
Chloride 106
Carbon Dioxide 25
BUN 14
Creatinine 1.1
Glucose 104 H
Calcium 8.2 L
Vital Signs:
Vital Signs
Temp Pulse Resp BP Pulse Ox
98.1 F 90 18 149/74 95
07/26/24 08:00 07/26/24 10:38 07/26/24 08:00 07/26/24 10:38 07/26/24 05:18
I&O
07/25/24 07/26/24 07/27/24
06:59 06:59 06:59
Intake Total 340 / 340 340 / 340
Output Total 250 / 250 200 / 200
Balance 90 / 90 140 / 140
[2024-07-26] MEDS: LOVENOX 40 MG SC (18:34)
[2024-07-26] MEDS: PROSCAR 5 MG PO (21:52)
[2024-07-26] MEDS: PROZAC 40 MG PO (21:52)
[2024-07-26] MEDS: SEROQUEL 25 MG PO (21:52)
[2024-07-26] MEDS: VITAMIN D3 (cholecalciferol) 125 MCG PO (21:53)
[2024-07-26] MEDS: CRESTOR 20 MG PO (21:53)
--- NOTE | 2024-07-26 23:21 | PTCARENOTE ---
report given to Melissa Conde
[2024-07-27] VITALS (14 sets, daily range): BP systolic 107–161; BP diastolic 65–85; PULSE 64; O2SAT 96
[2024-07-27] MEDS: ZOSYN 50 IV ×2 (02:22→10:00)
--- NOTE | 2024-07-27 08:13 | W.PN.HOSP.TC ---
Today's Communication/Plan
-
cont Abx until ID assessment
PT/OT to reassess for dispo (currently rehab)
Assessment / Plan
Assessment / Plan
78yo M wityh PMHx of BPH, anxiety/depression, GERD, HLD, s/p TURP on 07/15/24 2/2 recurrent UTI and BPH with urinary retention came with fevers and diarrhea for 1 day, found norovirus. ALso started on Abx 2/[address]
chesrt/abd/pelvis without certainsource of infection. Bcx grew coag.neg staph in 1 set.
A/P:
#Norovirus enteritis
resolving
contact precautions
hydration
#Possible bacteremia, most likely contamination, but with increased procalcitonin and recent TURP 2/2 BPH
UCx neg
Urology signed off as no indication of acute UTI
Procalcitonin improved on Zosyn, however no WBC elevation
ID consult
#Pulmonary atelectasis
unlikely pneumonia
incentive spiromentry
#Ascending aortic dilation
4.4cm
Echo/CT monitoring as outpatient with PCP in 6-12mo
#Acute metabolic encephalopathy on Admission with Alzheimer dementia
2/2 acute disease
improved
#Fatty infiltration of pancrase
Outpatient GI
#Essential HTN
#GERD
#Pulmonary HTN
cont home meds
#Ambulatory disfunction
PT/OT recommend rehab
DVT ppx lovenox
Full code
I have spent at least 38min reviewing chart, test results, communication with consultants and direct patient care
Anticipated Discharge: 24 - 48 hours
Subjective/Interval History
-
Date of Service: July 27, 2024
Objective Data
-
Labs:
Laboratory Results
07/27/24
06:00
WBC Pending
Hgb Pending
Hct Pending
Plt Count Pending
Sodium Pending
Potassium Pending
Chloride Pending
Carbon Dioxide Pending
BUN Pending
Creatinine Pending
Glucose Pending
Calcium Pending
Vital Signs:
Vital Signs
Temp Pulse Resp BP Pulse Ox
95.9 F L 48 18 157/75 96
07/27/24 03:52 07/27/24 06:00 07/27/24 03:52 07/27/24 04:00 07/27/24 03:50
I&O
07/26/24 07/27/24 07/28/24
06:59 06:59 06:59
Intake Total 340 / 340 540 / 540
Output Total 200 / 200 400 / 400
Balance 140 / 140 140 / 140
Review of Systems
-
Unable to obtain full review of systems at this time due to: Dementia
History Source: Patient
All other systems: Reviewed and negative
Physical Exam
-
General: No Apparent Distress
HEENT: Normocephalic
Respiratory: Clear to Auscultation
GI: Soft, Nontender and Nondistended
Skin: Warm
Neuro: Awake, Alert and Oriented
Psych: Calm and Apparent Dementia
[2024-07-27] MEDS: LASIX 20 MG PO (09:59)
[2024-07-27] MEDS: PROTONIX 40 MG PO (10:00)
[2024-07-27] MEDS: ARICEPT 5 MG PO (10:00)
[2024-07-27 11:25] LABS: % Basophils 0.2 % (0-2); % Eosinophils 1.6 % (0-6); % Immature Granulocytes 0.3 % (0-0.5); % Lymphocytes 15.6 % (20.5-51.1); % Monocytes 3.6 % (1.7-9.3); % Neutrophils 78.7 % (42.2-75.2); Absolute Eosinophils 0.1 10^3/uL (0-0.7); Absolute Lymphocytes 1.4 10^3/uL (1.2-3.4); Absolute Monocytes 0.3 10^3/uL (0.1-0.6); Absolute Neutrophils 6.9 10^3/uL (1.4-6.5); Hematocrit 40.1 % (39.0-52.0); Hemoglobin 12.6 g/dL (13.0-18.0); Mean Corp Hgb Conc. 31.4 g/dL (33.0-37.0); Mean Corpuscular Hgb 30.2 pg (27.0-31.0); Mean Corpuscular Volume 96.2 fL (80.0-94.0); Mean Platelet Volume 9.9 fL (7.4-10.4); Nucleated Red Blood Cells % 0 % (-); Platelet Count 223 10^3/uL (130-400); Red Blood Cell Count 4.17 10^6/uL (4.70-6.10); Red Cell Dist. Width 13.8 % (11.5-14.5); White Blood Cell Count 8.7 10^3/uL (4.8-10.8)
[2024-07-27 11:45] LABS: Blood Urea Nitrogen 14 mg/dl (9-20); Calcium 8.4 mg/dl (8.4-10.2); Carbon Dioxide 28 mmol/L (22-30); Chloride 103 mmol/L (98-107); Estimated Creatinine Clearance 70 ml/min; Glucose 112 mg/dl (70-99); Potassium 3.8 mmol/L (3.5-5.1); Sodium 141 mmol/L (135-145); eGFR > 60.00
--- NOTE | 2024-07-27 14:11 | PN.CDI ---
Addendum entered and electronically signed by Man Moon MD 07/27/24 16:02:
No sepsis
Original Note:
CDI
- -
CDI:
Physician Documentation Request
Admit Date: 07/24/24 00:46
Dear Doctor Sarai,
Please review the following and provide your response in the progress notes.
Clinical Indicators:
Pt admitted with Fever /Diarrhea Norovirus
Documented per 07/24-07/26, ' Sepsis secondary to urinary tract infection and possible PNA...Stool studies positive for norovirus....'
Progress note 07/27, ' Norovirus enteritis...'
On admission Tmax 102.8, HR 107, Reparations 29
Please update the status of sepsis documented in the record:
Sepsis- POA (Viral)-Resolved
- Systemic manifestations of infection, with 2 or more SIRS criteria which include:
- Fever >100.4 degrees F or hypothermia < 96.8 degrees F
- Leukocytosis - WBC > 12,000 or leukopenia - WBC < 4,000 or > 10% bands
- Tachycardia > 90 beats per minute
- Tachypnea - RR > 20 breaths per minute or PaCO2 , 32mmHg
Source: Merck Manual 2013
Sepsis-POA ( Viral) - Still being monitored/treated
Sepsis -ruled out
Other ( please specify)
Use of terms such as suspected, likely, concern for, or probable (associated with a specific diagnosis that is being evaluated, monitored, or treated as if it exists) are acceptable and can be coded in the inpatient setting, when documented at the
time of discharge.
Thank you,
Kika Alegre RN
CDI Specialist
[facility] [facility]
Please use your independent medical judgment in providing your response.
--- NOTE | 2024-07-27 14:43 | CON.ID ---
Consultation
-
Date/Time Consultation Requested: 07/27/24 8:04
Date/Time Consultation Performed: 07/27/24 14:43
Requesting Provider: Dr Moon
Performing Provider: Dr Brink
Reason for Consultation: bacteremia
Chief Complaint / Past History
Chief Complaint
Fever, altered mental status
History of Present Illness
Mr Quintero is an 78 year old male with history of UTI, BPH who presented here on 07/24 for fever and AMS. Had TURP 1 week prior to arrival. Post op hematuria resolved. Then 07/23 had single episode of diarrhea and fevers with rigors. Previous
UTI due to e faecalis treated with amoxicillin.
Since arrival Tmax 102.8 now running mildly hypothermic, blood pressure of 95/55 initially, now stable,HR stable, now on room air. WBC 8.9, hgb 11.4, plt 197L shift present, Cr 0.9, lactic acid 1.9, t bili 1.0, ast 21, alt 22, alk phos 79, procal
initially 4.5 and on repeat 1.4, ua 70-80 rbcs and 11-15 wbc, Influenza and COVID were negative. CT of the chest abdomen pelvis was notable for mild colon distention without any evidence of colonic wall thickening, there was dependent prior,
opacity with inferior lower lungs right greater than left most likely atelectasis. No mention was made of abnormalities of the renal collecting system or bladder. CT head: no IC abnormality. found to have norovirus, CONS seen in 1 of 2 sets of
blood cultures. Reports some loose stools today, overall becoming formed.
Past History
Additional Past Medical History:
Dementia, GERD, Hypercholesterolemia and Other (BPH)
Additional Past Surgical History:
TURP
Allergy History:
No Known Allergies Allergy (Verified 07/23/24 18:18)
Medications Reviewed: Yes
Social History
Tobacco: Non-Smoker
Alcohol: None
Drug: None
Family History
Family History: Not Pertinent
Review of Systems
Review of Systems
General: Negative Fever or Chills
All systems: All other systems were reviewed and were negative
Vital Signs
Temp Pulse Resp BP Pulse Ox
96.4 F L 75 20 117/78 94
07/27/24 14:10 07/27/24 14:10 07/27/24 14:10 07/27/24 14:10 07/27/24 14:10
Physical Exam
Physical Exam
Constitutional: No Acute Distress
Cardiovascular: Regular Rate and S1/S2; Negative Murmur or Rub
Pulmonary: Clear and Symmetric; Negative Wheezes, Rales or Rhonchi
Gastrointestinal: Soft, Non Tender, Non Distended and Normal Bowel Sounds
Genito-Urinary: Negative Suprapubic Tenderness
Skin: Warm and Dry; Negative Rash or Jaundice
Lab / Diagnostic Study Results
07/27/24 11:08
07/27/24 11:08
Abs Immat Gran (auto) 0.0 10^3/uL (0-0.05) 07/27/24 11:08
Absolute Neuts (auto) 6.9 10^3/uL (1.4-6.5) H 07/27/24 11:08
Absolute Lymphs (auto) 1.4 10^3/uL (1.2-3.4) 07/27/24 11:08
Absolute Monos (auto) 0.3 10^3/uL (0.1-0.6) 07/27/24 11:08
Absolute Basos (auto) 0.0 10^3/uL (0-0.2) 07/27/24 11:08
Immature Gran % 0.3 % (0-0.5) 07/27/24 11:08
Neutrophils % 78.7 % (42.2-75.2) H 07/27/24 11:08
Lymphocytes % 15.6 % (20.5-51.1) L 07/27/24 11:08
Monocytes % 3.6 % (1.7-9.3) 07/27/24 11:08
Eosinophils % 1.6 % (0-6) 07/27/24 11:08
Basophils % 0.2 % (0-2) 07/27/24 11:08
Lactic Acid 1.9 mmol/L (0.7-2.0) 07/23/24 18:23
Procalcitonin 1.42 ng/ml (0.0-0.25) H 07/26/24 06:29
Ur Squamous Epith Cells 0-2 /LPF (Few) 07/23/24 18:43
Microbiology Results
Micro:
07/24/24 10:41 Salmonella/Shigella Culture - Final
Feces/Stool No Salmonella, Shigella, Aeromonas or Plesiomonas species
isolated.
Campylobacter Culture - Final
No Campylobacter species isolated.
Shiga Toxin Test - Final
No E. coli Shiga Toxin 1 or 2 detected.
07/23/24 19:06 Blood Culture - Preliminary
Blood/Venous No Growth in 72 hours- Final report to follow
07/23/24 19:06 Blood Culture - Preliminary
Blood/Venous Coagulase neg. staphylococcus
Additional testing on request
Gram Stain - Preliminary
07/23/24 18:43 Urine Culture - Final
Urine NO GROWTH
07/24/24 10:41 C. difficile GDH Antigen & Toxins - Final
Feces/Stool Negative for toxigenic C.difficile
- Final
Positive for Norovirus GII
07/23/24 18:23 Influenza Types A & B (PURNIMA) - Final
Nasal Swab Negative for Influenza A & B, NAAT
Negative results must be combined with clinical observations
and patient history.
Nucleic Acid Amplification test (NAAT)performed on the
[employer] platform.
Assessment / Plan
Initially elevated procalcitonin
- likely due to physiologic stress of norovirus - however not validated for norovirus
- would strictly avoid using procalcitonin unless 1) intend to stop or not start antibiotics based on the result and 2) indication is for pneumonia or undifferentiated sepsis. Note that progression to shock and physiologic stress by itself can
elevate procalcitonin. Test has limited utility and many physiologic states will lead to false positive results. Repeats can sometimes be useful when considering stopping antibiotics in limited circumstances. Trending when there is no intent to
stop antibiotics is discouraged.
- stopped zosyn
CONS Pseudobacteremia
- contaminated blood cultures
Norovirus - resolving
- ongoing loose stool likely combination of broad spectrum antibiotics and diarrhea
- self limited
stable for dc from ID perspective
[2024-07-27] MEDS: ZOSYN IV (14:53)
--- NOTE | 2024-07-27 15:36 | W.DCSUMMARY ---
Addendum entered and electronically signed by Man Moon MD 07/30/24 07:15:
DC date 07/28/24
Addendum entered and electronically signed by Man Moon MD 07/27/24 16:01:
PAtient is ambulatory in the room and he and his daughter bedside has no concerns going back to assisted living. Discussed dilated aorta in details. Patient and daughter verbalized understanding
Original Note:
Discharge Summary
Discharge Data
Date of Admission: 07/24/24
Date of Discharge: 07/27/24
-
Pending Results: No
Hospital Course
78yo M wityh PMHx of BPH, anxiety/depression, GERD, HLD, s/p TURP on 07/15/24 2/2 recurrent UTI and BPH with urinary retention came with fevers and diarrhea for 1 day, found norovirus. ALso started on Abx 2/[address]
chesrt/abd/pelvis without certain source of infection. Bcx grew coag.neg staph in 1 set which is as agreed with ID - contamination. ID agreeable to stop Abx. PAtient on baseline, diarrhea resolved. Medically stable for d/c
I have spent at least 38min reviewing chart, test results, communication with consultants and direct patient care
Patient was managed for:
#Norovirus enteritis
#Possible bacteremia, most likely contamination, but with increased procalcitonin and recent TURP 2/2 BPH
#Pulmonary atelectasis
#Ascending aortic dilation
#Acute metabolic encephalopathy on Admission with Alzheimer dementia
#Fatty infiltration of pancrase
#Essential HTN
#GERD
#Pulmonary HTN
#Ambulatory disfunction
Discharge Plan
-
Patient Disposition: Home (Routine Discharge)
Discharge Diagnosis/Procedures: norovirus enteritis
Diet: Low Fat
Activity: As tolerated
Referrals:
Dory Starr DO [Family Provider] - (Echo/CT monitoring of ascending aortic aneurism as outpatient with PCP in 6-12mo)
Prescriptions:
Continued
fluoxetine 40 mg Capsule
40 mg PO HS
acetaminophen [Tylenol Extra Strength] 500 mg Tablet
500 mg PO DAILYPRN PRN (Reason: mild pain)
finasteride 5 mg Tablet
5 mg PO HS
cholecalciferol (vitamin D3) 125 mcg (5,000 unit) Tablet
125 mcg PO HS
polyethylene glycol 3350 [HealthyLax] 17 gram Powder In Packet
17 g PO DAILYPRN PRN (Reason: constipation) Qty: 0 0RF
sennosides-docusate sodium [Stool Softener-Stimulant Laxat] 8.6-50 mg Tablet
1 tab PO BIDPRN PRN (Reason: constipation) Qty: 0 0RF
quetiapine [Seroquel] 25 mg Tablet
25 mg PO DAILY
acetaminophen 325 mg Tablet
650 mg PO BIDPRN PRN (Reason: mild pain)
donepezil [Aricept] 5 mg Tablet
5 mg PO DAILY
omeprazole 40 mg Capsule,Delayed Release(Dr/Ec)
40 mg PO DAILY
furosemide [Lasix] 20 mg Tablet
20 mg PO DAILY
rosuvastatin 20 mg Tablet
20 mg PO HS
Certa Plus 18-0.4-250 mg-mg-mcg Tablet
1 tab PO DAILY
loperamide 2 mg Tablet
2 mg PO TIDPRN PRN (Reason: diarrhea)
Rx Instructions:
take 4mg on the first loose stool, then 2mg thereafter each loose stool
Discharge Orders:
Discharge Patient (As Directed); Ordered 07/27/24
Ordered By: Man Moon
Discharge Date and Time
Print Language: BELIZEAN
--- NOTE | 2024-07-27 15:56 | CM ---
Addendum entered by Sandee Call RN 07/28/24 09:52:
[facility]
Report
[id number]
fax
[phone]
Addendum entered by Sandee Call RN 07/27/24 16:57:
CM spoke with Tami at [facility] and she is able to accept tomorrow. CM updated family and patient with plan.
Addendum entered by Sandee Call RN 07/27/24 16:48:
PT has recommended SNF. CM updated Tami at [facility] for possible bed today.
Addendum entered by Sandee Call RN 07/27/24 16:22:
CM spoke with Shaila at [facility]. She is refusing to have patient return due to concerns over PT notes from 07/25 stating patient needed SNF. EUGENE spoke with daughter and she would prefer if patient returned to [facility], but understands he may
need SNF. PT will evaluate today.
Addendum entered by Sandee Call RN 07/27/24 16:10:
EUGENE left a second message for nursing at [facility] to confirm that patient can return.
Original Note:
Patient is medically ready for discharge. CM is awaiting PT for further discharge planning. EUGENE left message for Nursing at [facility].
[2024-07-27] MEDS: LOVENOX 40 MG SC (18:11)
[2024-07-27] MEDS: CRESTOR 20 MG PO (21:24)
[2024-07-27] MEDS: SEROQUEL 25 MG PO (21:24)
[2024-07-27] MEDS: VITAMIN D3 (cholecalciferol) 125 MCG PO (21:24)
[2024-07-27] MEDS: PROSCAR 5 MG PO (21:24)
[2024-07-27] MEDS: PROZAC 40 MG PO (21:24)
[2024-07-28 03:43] VITALS: BP 141/72
[2024-07-28 03:46] VITALS: BP 141/79
[2024-07-28 04:03] VITALS: BP 85/13
[2024-07-28 08:00] VITALS: BP 127/62
[2024-07-28] MEDS: LASIX 20 MG PO (08:38)
[2024-07-28] MEDS: ARICEPT 5 MG PO (08:38)
[2024-07-28] MEDS: PROTONIX 40 MG PO (08:38)
--- NOTE | 2024-07-28 10:27 | W.PN.HOSP.TC ---
Today's Communication/Plan
-
dc to SNF today
Assessment / Plan
Assessment / Plan
78yo M wityh PMHx of BPH, anxiety/depression, GERD, HLD, s/p TURP on 07/15/24 2/2 recurrent UTI and BPH with urinary retention came with fevers and diarrhea for 1 day, found norovirus. ALso started on Abx 2/[address]
chesrt/abd/pelvis without certainsource of infection. Bcx grew coag.neg staph in 1 set.
A/P:
#Norovirus enteritis
resolving
contact precautions
hydration
#Possible bacteremia, most likely contamination, but with increased procalcitonin and recent TURP 2/2 BPH
UCx neg
Urology signed off as no indication of acute UTI
Procalcitonin improved on Zosyn, however no WBC elevation
ID Consulted; no role for Abx
#Pulmonary atelectasis
unlikely pneumonia
incentive spiromentry
#Ascending aortic dilation
4.4cm
Echo/CT monitoring as outpatient with PCP in 6-12mo. Dr. Moon d/w family
#Acute metabolic encephalopathy on Admission with Alzheimer dementia
2/2 acute disease
improved
#Fatty infiltration of pancrase
Outpatient GI
#Essential HTN
#GERD
#Pulmonary HTN
cont home meds
#Ambulatory disfunction
PT/OT recommend rehab
DVT ppx lovenox
Full code
dc to SNF today
Anticipated Discharge: Today
Subjective/Interval History
-
Date of Service: July 28, 2024
no overnight events
awaiting dc
Objective Data
-
Vital Signs:
Vital Signs
Temp Pulse Resp BP Pulse Ox
97.8 F 60 18 127/62 94
07/28/24 07:30 07/28/24 08:36 07/28/24 08:36 07/28/24 08:00 07/28/24 08:36
I&O
07/27/24 07/28/24 07/29/24
06:59 06:59 06:59
Intake Total 540 / 540 530 / 530
Output Total 400 / 400 200 / 200
Balance 140 / 140 330 / 330
Physical Exam
-
General: No Apparent Distress
HEENT: Normocephalic and Atraumatic
Respiratory: Negative Wheezes
Cardiac: Regular Rhythm and S1/S2
GI: Soft and Nontender
Genito-urinary: No Costovertebral Tender
Neuro: AO x 3
Psych: Calm
Data Reviewed
-
Total Time Spent with Patient (in minutes): 41
Labs: Labs Reviewed by me
--- NOTE | 2024-07-28 10:44 | PTCARENOTE ---
Report called to receiving RN at [facility] named Peggy
== END 2024-07-28 10:34 | disposition home health service (06) | DRG 391 ==
LOC: ED 00:46
PROVIDERS: Internal Medicine; ADMITTING PHYSICIAN Internal Medicine; ATTENDING PHYSICIAN Internal Medicine; CONSULT PHYSICIAN Specialist; EMERGENCY PHYSICIAN Student in an Organized Health Care Education/Training Program; FAMILY PHYSICIAN Family Medicine; OTHER PHYSICIAN Student in an Organized Health Care Education/Training Program
DX: A08.11 Acute gastroenteropathy due to Norwalk agent (principal); G93.41 Metabolic encephalopathy; N39.0 Urinary tract infection, site not specified; F02.84 Dementia in other diseases classified elsewhere, unspecified severity, with anxiety; J98.11 Atelectasis; Z11.52 Encounter for screening for COVID-19; Z87.440 Personal history of urinary (tract) infections; I27.20 Pulmonary hypertension, unspecified; G30.9 Alzheimer's disease, unspecified; E78.00 Pure hypercholesterolemia, unspecified; K21.9 Gastro-esophageal reflux disease without esophagitis; I10 Essential (primary) hypertension; I77.810 Thoracic aortic ectasia
CPT/HCPCS: 70450; 71260; 74177; 80048; 80053; 81003; 81015; 83605; 84145; 85025; 85027; 87040; 87045; 87046; 87086; 87150; 87205; 87324; 87427; 87449; 87502; 87798; 87811; 96374; 99285; Q9967

== ENCOUNTER → 2024-07-31 14:48 | Outpatient (REF) | payer OTHER, MEDICARE, SELFPAY ==
[2024-07-31 15:31] LABS: % Basophils 0.3 % (0-2); % Eosinophils 2.3 % (0-6); % Immature Granulocytes 0.5 % (0-0.5); % Lymphocytes 17.4 % (20.5-51.1); % Monocytes 6.7 % (1.7-9.3); % Neutrophils 72.8 % (42.2-75.2); Absolute Eosinophils 0.2 10^3/uL (0-0.7); Absolute Lymphocytes 1.4 10^3/uL (1.2-3.4); Absolute Monocytes 0.5 10^3/uL (0.1-0.6); Absolute Neutrophils 5.6 10^3/uL (1.4-6.5); Hematocrit 35.7 % (39.0-52.0); Hemoglobin 11.4 g/dL (13.0-18.0); Mean Corp Hgb Conc. 31.9 g/dL (33.0-37.0); Mean Corpuscular Hgb 30.1 pg (27.0-31.0); Mean Corpuscular Volume 94.2 fL (80.0-94.0); Mean Platelet Volume 12.5 fL (7.4-10.4); Nucleated Red Blood Cells % 0 % (-); Platelet Count 254 10^3/uL (130-400); Red Blood Cell Count 3.79 10^6/uL (4.70-6.10); Red Cell Dist. Width 13.5 % (11.5-14.5); White Blood Cell Count 7.8 10^3/uL (4.8-10.8)
[2024-07-31 15:47] LABS: Blood Urea Nitrogen 20 mg/dl (9-20); Calcium 8.8 mg/dl (8.4-10.2); Carbon Dioxide 28 mmol/L (22-30); Chloride 104 mmol/L (98-107); Glucose 92 mg/dl (70-99); Potassium 4.2 mmol/L (3.5-5.1); Sodium 137 mmol/L (135-145); eGFR > 60.00
== END ==
LOC: OLABP 14:48
PROVIDERS: ATTENDING PHYSICIAN Family Medicine
DX: G93.41 Metabolic encephalopathy (principal); A08.11 Acute gastroenteropathy due to Norwalk agent; F03.90 Unspecified dementia, unspecified severity, without behavioral disturbance, psychotic disturbance, mood disturbance, and anxiety; I10 Essential (primary) hypertension; N40.0 Benign prostatic hyperplasia without lower urinary tract symptoms; K21.9 Gastro-esophageal reflux disease without esophagitis
CPT/HCPCS: 36415; 80048; 85025

== ENCOUNTER → 2024-08-18 14:00 | Outpatient (REF) | payer MEDICARE, OTHER, SELFPAY ==
[2024-08-19 11:17] LABS: Urine Albumin 2+ (Neg - Trace); Urine Bilirubin Negative (Negative); Urine Character Clear (Clear); Urine Glucose Negative (Negative); Urine Ketone Negative (Negative); Urine Leukocyte 3+ (Negative); Urine Nitrite Negative (Negative); Urine Occult Blood 4+ (Negative); Urine Specific Gravity 1.015 (<1.030); Urine Urobilinogen Negative (Neg - 1+)
[2024-08-19 13:05] LABS: Urine Squamous Cell 0-2 /LPF (Few)
[2024-08-19 13:06] LABS: Urine Bacteria Few (Negative); Urine Red Blood Cell 26-30 /HPF (0-2); Urine White Cell 80-90 /HPF (0-5)
[2024-08-19 14:08] LABS: Urine Color Yellow
== END ==
LOC: OLABLV 14:00
PROVIDERS: ATTENDING PHYSICIAN Nurse Practitioner Gerontology
DX: R35.0 Frequency of micturition (principal); N39.0 Urinary tract infection, site not specified
CPT/HCPCS: 81003; 81015; 87086

== ENCOUNTER → 2024-09-02 10:39 | Outpatient (REF) | payer MEDICARE, OTHER, SELFPAY ==
[2024-09-02 13:08] LABS: PSA, Total - Screen 0.16 ng/ml (0.0-4.0)
== END ==
LOC: OLABLV 10:39
PROVIDERS: ATTENDING PHYSICIAN Nurse Practitioner Gerontology
DX: N41.1 Chronic prostatitis (principal); N40.1 Benign prostatic hyperplasia with lower urinary tract symptoms; Z12.5 Encounter for screening for malignant neoplasm of prostate
CPT/HCPCS: 36415; G0103

== ENCOUNTER → 2024-09-24 16:04 | Outpatient (REF) | payer MEDICARE, OTHER, SELFPAY ==
[2024-09-24 17:21] LABS: Urine Albumin 2+ (Neg - Trace); Urine Bilirubin Negative (Negative); Urine Character Cloudy (Clear); Urine Color Yellow; Urine Glucose Negative (Negative); Urine Ketone Negative (Negative); Urine Leukocyte 3+ (Negative); Urine Nitrite Negative (Negative); Urine Occult Blood 2+ (Negative); Urine Urobilinogen 1+ (Neg - 1+)
[2024-09-24 17:34] LABS: Urine Squamous Cell 0-2 /LPF (Few)
[2024-09-24 17:35] LABS: Urine Calcium Oxalate Crystals Present
[2024-09-24 17:36] LABS: Urine Bacteria Many (Negative); Urine White Cell 50-60 /HPF (0-5)
== END ==
LOC: OLABLV 16:04
PROVIDERS: ATTENDING PHYSICIAN Nurse Practitioner Gerontology
DX: N39.0 Urinary tract infection, site not specified (principal)
CPT/HCPCS: 81003; 81015; 87086

== ENCOUNTER → 2024-10-23 11:03 | Outpatient (REF) | payer MEDICARE, OTHER, SELFPAY ==
[2024-10-23 13:01] LABS: ALT (SGPT) 20 U/L (0-50); AST (SGOT) 20 U/L (17-59); Alkaline Phosphatase 70 U/L (38-126); Blood Urea Nitrogen 17 mg/dl (9-20); Carbon Dioxide 26 mmol/L (22-30); Chloride 106 mmol/L (98-107); Glucose 106 mg/dl (70-99); HDL Cholesterol 48 mg/dl; LDL Cholesterol, Calculated 42 mg/dl; Potassium 4.3 mmol/L (3.5-5.1); Sodium 141 mmol/L (135-145); Total Bilirubin 0.8 mg/dl (0.2-1.3); Total Cholesterol 106 mg/dl (50-199); Total Protein 6.4 g/dl (6.3-8.2); Triglyceride 83 mg/dl (10-149); Very Low Density Lipoprotein 16 mg/dl (0-30); eGFR > 60.00
== END ==
LOC: OLABLV 11:03
PROVIDERS: ATTENDING PHYSICIAN Nurse Practitioner Gerontology
DX: I10 Essential (primary) hypertension (principal); N40.0 Benign prostatic hyperplasia without lower urinary tract symptoms; F03.90 Unspecified dementia, unspecified severity, without behavioral disturbance, psychotic disturbance, mood disturbance, and anxiety; A08.11 Acute gastroenteropathy due to Norwalk agent; G93.41 Metabolic encephalopathy
CPT/HCPCS: 36415; 80053; 80061

== ENCOUNTER 2024-11-20 21:20 | Emergency (ER) | payer MEDICARE, OTHER, SELFPAY ==
[2024-11-20 21:20] VITALS: BP 116/69
[2024-11-20 21:59] LABS: % Basophils 0.4 % (0-2); % Eosinophils 2.9 % (0-6); % Immature Granulocytes 0.3 % (0-0.5); % Lymphocytes 20.7 % (20.5-51.1); % Monocytes 4.9 % (1.7-9.3); % Neutrophils 70.8 % (42.2-75.2); Absolute Eosinophils 0.2 10^3/uL (0-0.7); Absolute Lymphocytes 1.7 10^3/uL (1.2-3.4); Absolute Monocytes 0.4 10^3/uL (0.1-0.6); Absolute Neutrophils 5.7 10^3/uL (1.4-6.5); Hematocrit 36.7 % (39.0-52.0); Hemoglobin 12.3 g/dL (13.0-18.0); Mean Corp Hgb Conc. 33.5 g/dL (33.0-37.0); Mean Corpuscular Hgb 30.4 pg (27.0-31.0); Mean Corpuscular Volume 90.6 fL (80.0-94.0); Mean Platelet Volume 10.1 fL (7.4-10.4); Nucleated Red Blood Cells % 0 % (-); Platelet Count 213 10^3/uL (130-400); Red Blood Cell Count 4.05 10^6/uL (4.70-6.10); Red Cell Dist. Width 14.6 % (11.5-14.5)
[2024-11-20 22:19] LABS: ALT (SGPT) 23 U/L (0-50); AST (SGOT) 20 U/L (17-59); Albumin 3.9 g/dl (3.5-5.0); Alkaline Phosphatase 69 U/L (38-126); Blood Urea Nitrogen 16 mg/dl (9-20); Calcium 8.8 mg/dl (8.4-10.2); Carbon Dioxide 23 mmol/L (22-30); Chloride 110 mmol/L (98-107); Glucose 141 mg/dl (70-99); Sodium 139 mmol/L (135-145); Total Bilirubin 0.4 mg/dl (0.2-1.3); Total Protein 6.5 g/dl (6.3-8.2); eGFR > 60.00
[2024-11-20 22:24] LABS: Troponin I < 0.012 ng/ml
[2024-11-20 23:40] VITALS: BP 117/71
[2024-11-21] VITALS: BP 129/68
--- NOTE | 2024-11-21 01:12 | ED.GENMED ---
History of Present Illness
General
Chief Complaint: Dehydration Symptoms
Source: patient
Exam Limitations: none
Time Seen by Provider: 11/21/24 01:09
Nursing documentation reviewed up to this point in time: agreed with
History of Present Illness
History of Present Illness:
The patient is a pleasant 79-year-old man who reports that he felt slightly lightheaded prior to arrival and when [facility] checked his blood pressure, his systolic was in the 90s. Patient reports that he now feels completely fine. He denies all
dizziness, headache, sore throat, shortness of breath and chest pain. Patient states that he had been worried about dehydration as a cause of his lightheadedness. However, he reports he is eating and drinking well. He has not had any vomiting or
diarrhea. Patient reports that he has chronic balance issues and gets around with a walker. He has no specific complaints at this time. Patient also reports he has a history of urinary tract infections and wants to make sure he does not have a
UTI.
Past History
Past History
ED Past Medical History: Psychiatric (ANXIETY), Other (GI bleed and Uropsepsis late 2015 at [facility]) and Other (BPH, hypertension, hyperlipidemia, GERD, peptic ulcer disease, chronic balance issues)
ED Past Surgical History: Other
Social History
Tobacco: Non-smoker
Alcohol: Occasional
Drug: None
Personal: Other
Living: assisted living
Employment: Retired
Family History
Family History: Other (Alzheimer's)
Review of Systems
Review of Systems
Allergies reviewed?: Yes
Other source history: family (Daughter on the phone, Cathryn)
All Other Systems: ROS reviewed and negative except as documented in HPI and ROS
Constitutional: Reports no symptoms
EENT: Reports no symptoms
Respiratory: Reports no symptoms
Cardiac: Reports other (Lightheaded, which is now resolved)
ABD/GI: Reports no symptoms
: Reports no symptoms
Musculoskeletal: Reports no symptoms
Skin: Reports no symptoms
Neurological: Reports dizzy (Chronic balance issues, no worse now than baseline)
Endocrine: Reports no symptoms
Hematologic/Lymphatic: Reports no symptoms
Psychiatric: Reports no symptoms
Phy Exam
Physical Exam
Physical Exam:
Physical Exam
General: no apparent distress, not acutely ill
Neck: supple. no meningeal signs. normal psoterior pharynx
Heart: s1/s2 regular rate and rhythm, no murmur
Lungs: no acute respiratory distress. clear bilaterally
Abdomen: normal bowel sounds. not tender. no CVAT
Neuro: alert and orientedx3. no focal neurological deficits. 5 out of 5 strength in all extremities without drift. Answers all questions appropriately. Able to stand up and use walker to get around, normal finger-nose
Skin: no rash
Psychiatric: well kept. interactive and cooperative
Extremities: no edema. no calf tenderness. negative homans. good distal pulses
Course
Orders/Labs/Results
Orders:
Orders
11/20/24 21:24
Electrocardiogram (*1) Urgent
Reason for Study: Chest Pain
EKG- Treatment ONCE
11/20/24 21:42
Complete Blood Count/With Diff Urgent
Comprehensive Metabolic Panel Urgent
Troponin I Urgent
11/21/24 02:11
Urinalysis Reflex To Culture Urgent
Date Specimen was Collected: 11/21/24
Time Specimen was Collected: 02:06
Urine Microscopic Reflex Cult Urgent
Urine Culture Urgent
JORGE Source: U
Specimen Description:
Date Specimen was Collected: 11/21/24
Time Specimen was Collected: 02:06
11/21/24 03:11
Sulfamethox./Trimethoprim Ds [Bactrim Ds 800 mg/160 mg] 1 tablet PO NOW STA
Abnormal Lab Results
11/20/24 11/21/24
21:42 02:11
RBC 4.05 L 10^6/uL
(4.70-6.10)
Hgb 12.3 L g/dL
(13.0-18.0)
Hct 36.7 L %
(39.0-52.0)
RDW 14.6 H %
(11.5-14.5)
Chloride 110 H mmol/L
(98-107)
Glucose 141 H mg/dl
(70-99)
Leukocyte Esterase Rfl 2+ A
(Negative)
Urine WBC (Reflex) 11-15 A /HPF
(0-5)
11/20/24 21:42
11/20/24 21:42
Vital Signs
Initial and Last Documented VS:
Initial Vital Signs
Temp Pulse Resp BP Pulse Ox
98.2 F 70 16 116/69 98
11/20/24 21:20 11/20/24 21:20 11/20/24 21:20 11/20/24 21:20 11/20/24 21:20
Last Documented Vital Signs
Temp Pulse Resp BP Pulse Ox
98.2 F 54 16 172/92 97
11/20/24 21:20 11/21/24 02:00 11/21/24 02:00 11/21/24 02:00 11/21/24 02:00
MDM/Problems Addressed
Differential Diagnosis Includes:
Acute hyponatremia, acute UTI, symptomatic bradycardia
MDM/Problems Addressed:
Patient presents for reportedly low blood pressure at [facility] and [facility]. Blood pressure has been normal in the ED and high at times
Chronic conditions affecting care:
Dementia, chronic balance issues
*Pulse Oximetry
Patient hypoxic: no
*EKG
Interpreted by ED Provider?: Yes
Interpretation: normal
Comparison EKG: changes noted (No PVCs are seen on previous)
Rate: normal
Rhythm: sinus
Mcbain: left axis deviation
Interval: normal interval
QRS Pattern: normal QRS
Ischemia: no ischemia
*Telephone Station Repairer Interpretation
Rate: normal
Interpretation: normal
Rhythm: sinus
*Critical Care Note
Total Time (30-74mins, 75-104mins- exclusive of procedures): Not Applicable
Data Reviewed
Review of Other/Old Records Reveals: Discharge Summary (Discharge summary reviewed from July 2024 when patient had norovirus and ambulatory dysfunction)
Source: patient and family (Daughter, Cathryn, over the phone)
Patient Management
Social determinants of health affecting care: Living situation and Strong social support
Escalation/DeEscalation of care consider admission/obs:
Patient has a normal neurological exam and is able to stand up and get around with a walker, and states that his balance issues are no worse than his baseline. Therefore, I do not think there is any sign of acute stroke. I did discuss doing a CAT
scan of the head with his daughter and the patient, however, given that he denies any worsening dizziness than his baseline, decision made to not do a CT. Patient's blood pressure has NOT been low in the emergency department. He has no fever nor
elevated white count to suggest sepsis. He looks well and comfortable. His EKG shows no sign of heart block. I did discuss with his daughter, Cathryn, that he did become bradycardic in the 40s and for that he should follow-up with cardiology.
ED Attending Note
-
Portions of this chart may have been created with voice recognition software.� Occasional wrong word or��sound alike� substitutions may have occurred due to the inherent limitations of voice recognition software.
Discharge Plan
Departure
Patient Disposition: Home (Routine Discharge)
Date of Disposition: 11/21/24
Time of Disposition: 01:55
Patient with high blood pressure during this ER visit?: No
Condition: Good
Covid-19: Not Applicable
Discharge Problem:
Bradycardia, sinus, Acute UTI
Instructions: Urinary tract infections in adults, Bradycardia
Prescriptions:
New
sulfamethoxazole-trimethoprim [Bactrim DS] 800-160 mg tablet
1 tab PO BID Qty: 10 0RF
No Action
fluoxetine 40 mg Capsule
40 mg PO HS
acetaminophen [Tylenol Extra Strength] 500 mg Tablet
500 mg PO DAILYPRN PRN (Reason: mild pain)
finasteride 5 mg Tablet
5 mg PO HS
cholecalciferol (vitamin D3) 125 mcg (5,000 unit) Tablet
125 mcg PO HS
polyethylene glycol 3350 [HealthyLax] 17 gram Powder In Packet
17 g PO DAILYPRN PRN (Reason: constipation) Qty: 0 0RF
sennosides-docusate sodium [Stool Softener-Stimulant Laxat] 8.6-50 mg Tablet
1 tab PO BIDPRN PRN (Reason: constipation) Qty: 0 0RF
quetiapine [Seroquel] 25 mg Tablet
25 mg PO DAILY
acetaminophen 325 mg Tablet
650 mg PO BIDPRN PRN (Reason: mild pain)
donepezil [Aricept] 5 mg Tablet
5 mg PO DAILY
omeprazole 40 mg Capsule,Delayed Release(Dr/Ec)
40 mg PO DAILY
furosemide [Lasix] 20 mg Tablet
20 mg PO DAILY
rosuvastatin 20 mg Tablet
20 mg PO HS
Certa Plus 18-0.4-250 mg-mg-mcg Tablet
1 tab PO DAILY
loperamide 2 mg Tablet
2 mg PO TIDPRN PRN (Reason: diarrhea)
Rx Instructions:
take 4mg on the first loose stool, then 2mg thereafter each loose stool
Referrals:
UNKNOWN - PT DOES,NOT KNOW [Family Provider]
Activity Restrictions/Additional Instructions:
Please return if you feel your balance is worse than your baseline balance. Please return with any vision changes, weakness, numbness, chest pain, or fever.
Your heart rate went as slow as 47 in the emergency department. Please call and follow-up with your organizational development consultant as soon as possible.
Interventions
Interventions:
*Risk Screen - Suicide Last Done: 11/20/24 21:22
*General Assessment Last Done: 11/20/24 23:40
*Neglect/Abuse Screening Last Done: 11/20/24 21:22
*ED- Fall Risk Assessment Last Done: 11/20/24 23:40
*ED COVID-19 Vaccine History Last Done: 11/20/24 23:40
ED- Cardiac Assessment Last Done: 11/20/24 23:40
ED- Neurological Assessment Last Done: 11/20/24 23:40
ED- Pulmonary Assessment Last Done: 11/20/24 23:40
Discharge Date and Time
Print Language: WELSH
[2024-11-21 01:20] VITALS: BP 164/82
[2024-11-21 02:00] VITALS: BP 172/92
[2024-11-21 02:21] LABS: Urine Albumin Negative (Neg - Trace); Urine Bilirubin Negative (Negative); Urine Character Clear (Clear); Urine Glucose Negative (Negative); Urine Ketone Negative (Negative); Urine Leukocyte 2+ (Negative); Urine Nitrite Negative (Negative); Urine Occult Blood Negative (Negative); Urine Urobilinogen Negative (Neg - 1+); Urine pH 6.5 (5.0-9.0)
[2024-11-21 02:32] LABS: Urine Color Straw
[2024-11-21 02:56] LABS: Urine Red Blood Cell None Seen /HPF (0-2)
[2024-11-21] MEDS: BACTRIM DS 800 MG/160 MG 1 TABLET PO (03:34)
== END 2024-11-21 04:51 | disposition home or self-care (01) ==
LOC: EMR 21:20
PROVIDERS: Emergency Medicine; EMERGENCY PHYSICIAN Emergency Medicine
DX: N39.0 Urinary tract infection, site not specified (principal); R00.1 Bradycardia, unspecified; E78.5 Hyperlipidemia, unspecified; I10 Essential (primary) hypertension; F03.94 Unspecified dementia, unspecified severity, with anxiety; N40.0 Benign prostatic hyperplasia without lower urinary tract symptoms
CPT/HCPCS: 99284; 80053; 81003; 81015; 84484; 85025; 87086; 93005

== ENCOUNTER → 2024-12-22 14:30 | Outpatient (REF) | payer MEDICARE, OTHER, SELFPAY ==
[2024-12-22 16:39] LABS: Urine Character Clear (Clear)
[2024-12-22 16:48] LABS: Urine Red Blood Cell 0-2 /HPF (0-2)
== END ==
LOC: OLABLV 14:30
PROVIDERS: ATTENDING PHYSICIAN Nurse Practitioner Gerontology
DX: N39.0 Urinary tract infection, site not specified (principal)
CPT/HCPCS: 81003; 81015; 87086

== ENCOUNTER → 2025-01-28 17:16 | Outpatient (REF) | payer MEDICARE, OTHER, SELFPAY ==
[2025-01-28 18:04] LABS: Urine Character Clear (Clear)
[2025-01-28 19:02] LABS: Urine Red Blood Cell 0-2 /HPF (0-2); Urine Urothelial Cell 0-2 /LPF (FEW); Urine White Cell 16-20 /HPF (0-5)
== END ==
LOC: CLAB 17:16
PROVIDERS: ATTENDING PHYSICIAN Nurse Practitioner Gerontology
DX: R30.0 Dysuria (principal); R35.0 Frequency of micturition
CPT/HCPCS: 81003; 81015; 87086

== ENCOUNTER → 2025-01-29 12:03 | Outpatient (REF) | payer MEDICARE, OTHER, SELFPAY ==
[2025-01-29 13:50] LABS: Hematocrit 38.8 % (39.0-52.0); Hemoglobin 12.5 g/dL (13.0-18.0); Mean Corp Hgb Conc. 32.2 g/dL (33.0-37.0); Mean Corpuscular Volume 94.2 fL (80.0-94.0); Nucleated Red Blood Cells % 0 % (-); Platelet Count 197 10^3/uL (130-400); Red Cell Dist. Width 14.6 % (11.5-14.5)
[2025-01-29 15:23] LABS: TSH 1.18 uIU/ml (0.47-4.68)
[2025-01-29 15:58] LABS: Folate 19.3 ng/ml (2.76-20); Vitamin B12 302 pg/ml (239-931)
[2025-01-29 16:06] LABS: Blood Urea Nitrogen 21 mg/dl (9-20); Calcium 9.1 mg/dl (8.4-10.2); Carbon Dioxide 25 mmol/L (22-30); Chloride 108 mmol/L (98-107); Glucose 104 mg/dl (70-99); HDL Cholesterol 56 mg/dl; LDL Cholesterol, Calculated 49 mg/dl; Potassium 4.2 mmol/L (3.5-5.1); Sodium 140 mmol/L (135-145); Very Low Density Lipoprotein 14 mg/dl (0-30); eGFR > 60.00
[2025-01-29 18:02] LABS: Urine Character Clear (Clear)
[2025-01-29 18:44] LABS: Urine Squamous Cell 26-30 /LPF (Few)
[2025-01-29 18:45] LABS: Urine Red Blood Cell 0-2 /HPF (0-2); Urine White Cell 16-20 /HPF (0-5)
[2025-01-30 09:00] LABS: Glycohemoglobin (HgbA1c) 5.8 % (4.0-5.6)
== END ==
LOC: OLABLV 12:03
PROVIDERS: ATTENDING PHYSICIAN Nurse Practitioner Gerontology
DX: R35.0 Frequency of micturition (principal); E78.5 Hyperlipidemia, unspecified; F41.9 Anxiety disorder, unspecified; Z13.1 Encounter for screening for diabetes mellitus; Z87.440 Personal history of urinary (tract) infections; F03.90 Unspecified dementia, unspecified severity, without behavioral disturbance, psychotic disturbance, mood disturbance, and anxiety; E11.00 Type 2 diabetes mellitus with hyperosmolarity without nonketotic hyperglycemic-hyperosmolar coma (NKHHC); N39.0 Urinary tract infection, site not specified
CPT/HCPCS: 36415; 80048; 80061; 81003; 81015; 82607; 82746; 83036; 84443; 85025; 87086

== ENCOUNTER → 2025-03-05 10:12 | Outpatient (REF) | payer MEDICARE, OTHER, SELFPAY ==
[2025-03-05 11:44] LABS: PSA, Total - Diagnostic 0.17 ng/ml (0.0-4.0)
== END ==
LOC: OLABLV 10:12
PROVIDERS: ATTENDING PHYSICIAN Nurse Practitioner Gerontology
DX: N41.1 Chronic prostatitis (principal); N40.1 Benign prostatic hyperplasia with lower urinary tract symptoms
CPT/HCPCS: 36415; 84153

== ENCOUNTER → 2025-04-06 03:00 | Outpatient (REF) | payer MEDICARE, OTHER, SELFPAY ==
[2025-04-07 14:52] LABS: Urine Character Cloudy (Clear)
[2025-04-07 15:01] LABS: Urine Red Blood Cell 0-2 /HPF (0-2); Urine Squamous Cell 0-2 /LPF (Few)
== END ==
LOC: OLABLV 03:00
PROVIDERS: ATTENDING PHYSICIAN Nurse Practitioner Gerontology
DX: N39.0 Urinary tract infection, site not specified (principal)
CPT/HCPCS: 81003; 81015; 87086

== ENCOUNTER → 2025-05-05 11:33 | Outpatient (REF) | payer MEDICARE, OTHER, SELFPAY ==
[2025-05-05 12:53] LABS: TSH 1.32 uIU/ml (0.47-4.68)
[2025-05-05 13:11] LABS: Vitamin B12 307 pg/ml (239-931)
== END ==
LOC: OLABLV 11:33
PROVIDERS: ATTENDING PHYSICIAN Nurse Practitioner Gerontology
DX: G93.41 Metabolic encephalopathy (principal); G20.A1 Parkinson's disease without dyskinesia, without mention of fluctuations; E78.5 Hyperlipidemia, unspecified; F03.90 Unspecified dementia, unspecified severity, without behavioral disturbance, psychotic disturbance, mood disturbance, and anxiety
CPT/HCPCS: 36415; 82607; 84443

== ENCOUNTER → 2025-05-12 16:48 | Outpatient (REF) | payer MEDICARE, OTHER, SELFPAY | LOC: PAVMRI 16:48 | PROVIDERS: ATTENDING PHYSICIAN Dermatology; FAMILY PHYSICIAN Nurse Practitioner Gerontology | DX: G31.84 Mild cognitive impairment of uncertain or unknown etiology (principal); R26.81 Unsteadiness on feet; R26.89 Other abnormalities of gait and mobility; R25.1 Tremor, unspecified; R29.6 Repeated falls; Z82.0 Family history of epilepsy and other diseases of the nervous system; R44.3 Hallucinations, unspecified | CPT/HCPCS: 70551 ==

== ENCOUNTER → 2025-06-10 10:18 | Outpatient (REF) | payer MEDICARE, OTHER, SELFPAY ==
[2025-06-10 11:32] LABS: Urine Character Clear (Clear)
[2025-06-10 12:28] LABS: Urine Red Blood Cell 0-2 /HPF (0-2)
== END ==
LOC: OLABLV 10:18
PROVIDERS: ATTENDING PHYSICIAN Nurse Practitioner Gerontology
DX: N39.0 Urinary tract infection, site not specified (principal)
CPT/HCPCS: 81003; 81015; 87086

== ENCOUNTER → 2025-06-13 09:26 | Outpatient (REF) | payer MEDICARE, OTHER, SELFPAY ==
[2025-06-13 14:33] LABS: Urine Character Clear (Clear)
== END ==
LOC: OLABP 09:26
PROVIDERS: ATTENDING PHYSICIAN Nurse Practitioner Gerontology
DX: N39.0 Urinary tract infection, site not specified (principal)
CPT/HCPCS: 81003; 81015